=== PATIENT | male | born 1975 | race Caucasian/White ===

== ENCOUNTER 2016-09-05 | Emergency (ER) | payer MEDICAID | END 2016-09-05 14:45 | disposition left against medical advice (07) | DX: Z53.21 Procedure and treatment not carried out due to patient leaving prior to being seen by health care provider (principal) ==

== ENCOUNTER 2016-09-10 13:38 | Emergency (ER) | payer MEDICAID ==
[2016-09-10] MEDS ORDERED: LORazepam 2 MG/ML SYRINGE IM STA (14:57)
[2016-09-10] MEDS ORDERED: OLANZapine 10 MG VIAL IM STA (14:57)
[2016-09-10] MEDS ORDERED: WATER FOR INJECTION,STERILE 10 ML ONE (14:59)
[2016-09-10] MEDS ORDERED: LORazepam 2 MG/ML SYRINGE ONE (14:59)
[2016-09-10] MEDS ORDERED: OLANZapine 10 MG VIAL IM ONE (14:59)
[2016-09-10] MEDS ORDERED: diazePAM 5 MG TABLET PO STA (15:46)
[2016-09-10] MEDS ORDERED: diazePAM 5 MG TABLET PO ONE (15:48)
== END 2016-09-10 16:30 | disposition left against medical advice (07) ==
DX: F39 Unspecified mood [affective] disorder (principal); F15.10 Other stimulant abuse, uncomplicated; Z53.29 Procedure and treatment not carried out because of patient's decision for other reasons; Z87.891 Personal history of nicotine dependence
CPT/HCPCS: 36415; 80053; 80306; 80307; 80320; 80329; 81003; 83690; 84443; 85025; 96372; 99283; 99284; A9270; J2060

== ENCOUNTER 2016-09-17 23:32 | Outpatient (CLI) | payer MEDICAID | END 2016-09-17 23:33 | disposition critical access hospital (66) | DX: F91.9 Conduct disorder, unspecified (principal) | CPT/HCPCS: A0425; A0429 ==

== ENCOUNTER 2016-09-18 00:05 | Emergency (ER) | payer MEDICAID | END 2016-09-18 06:20 | disposition home or self-care (01) | DX: F15.14 Other stimulant abuse with stimulant-induced mood disorder (principal); F15.150 Other stimulant abuse with stimulant-induced psychotic disorder with delusions; F15.151 Other stimulant abuse with stimulant-induced psychotic disorder with hallucinations; Z87.891 Personal history of nicotine dependence ==

== ENCOUNTER 2018-08-22 06:22 | Outpatient (CLI) | payer MEDICAID | END 2018-08-22 06:23 | disposition EMS.NT | LOC: EMS 06:22 | PROVIDERS: ATTEND Surgery | DX: F41.9 Anxiety disorder, unspecified (principal) ==

== ENCOUNTER 2019-02-24 13:11 | Outpatient (CLI) | payer MEDICAID | END 2019-02-24 13:12 | disposition critical access hospital (66) | LOC: EMS 13:11 | PROVIDERS: ATTEND Surgery | DX: R07.81 Pleurodynia (principal); W50.0XXA Accidental hit or strike by another person, initial encounter; Y93.75 Activity, martial arts ==

== ENCOUNTER 2019-02-24 13:50 | Emergency (ER) | payer MEDICAID ==
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
[2019-02-24] MEDS ORDERED: oxyCODONE 5 MG TABLET PO STA ×2 (14:55→15:43)
[2019-02-24 16:46] VITALS: BP 134/78
== END 2019-02-24 15:00 | disposition home or self-care (01) ==
LOC: EDUNIT# → ED 13:50
DX: S20.212A Contusion of left front wall of thorax, initial encounter (principal); W50.0XXA Accidental hit or strike by another person, initial encounter; Y93.75 Activity, martial arts; Y92.89 Other specified places as the place of occurrence of the external cause; R07.1 Chest pain on breathing; J98.11 Atelectasis; Z87.891 Personal history of nicotine dependence
CPT/HCPCS: 71101; 99283; 99284; A9270

== ENCOUNTER 2020-01-10 18:54 | Emergency (ER) | payer MEDICAID ==
[2020-01-10 19:09] VITALS: BP 154/87
--- NOTE | 2020-01-10 20:33 | ED Physician Documentation ---
PD HPI HEENT - Stated complaint Stated Complaint: SORE THROAT - Chief complaint Chief Complaint: Heent - History obtained from History obtained from: Patient - History of Present Illness Timing - onset: How many days ago (4) Timing - duration: Days Timing - details: Gradual onset Location: Mouth Improves: Other (numbing meds) Worsens: Swalllowing, Other (eating) Associated symptoms: No: Fever, Congestion, Rhinorrhea, Facial swelling - Additional information Additional information: 44-year-old male presents to the emergency department with 3 to 4 days of acute mouth pain. Reports that he has developed some canker sores and a sore throat. He denies tonsillar exudate. Patient reports that the pain is worse after eating and makes it difficult to chew or swallow. He has no dysphonia. No fevers. Has had similar in the past. He has tried [id number] numbing agents which were for a brief time but do not work long enough. Review of Systems Constitutional: denies: Fever, Chills Ears: denies: Loss of hearing Nose: denies: Rhinorrhea / runny nose, Congestion Throat: reports: Oral lesions / sores, Sore throat Cardiac: denies: Chest pain / pressure, Palpitations Respiratory: denies: Dyspnea, Cough GI: denies: Abdominal Pain Skin: denies: Rash, Lesions PD PAST MEDICAL HISTORY - Past Medical History Past Medical History: Yes Endocrine/Autoimmune: None Psych: Other Musculoskeletal: Chronic back pain - Past Surgical History Past Surgical History: No - Present Medications Home Medications: Ambulatory Orders Medication Instructions Recorded Confirmed Oxycodone HCl/Acetaminophen 1 - 2 each PO Q6H PRN #20 tablet 02/24/19 [Percocet 5-325 mg Tablet] Lidocaine HCl [Lidocaine HCl 15 ml MM TID PRN #100 ml 01/10/20 Viscous] - Allergies Allergies/Adverse Reactions: Allergies Allergy/AdvReac Type Severity Reaction Status Date / Time No Known Drug Allergies Allergy Verified 02/24/19 14:03 - Social History Does the pt smoke?: No Smoking Status: Never smoker Does the pt drink ETOH?: Yes Does the pt have substance abuse?: Yes - Immunizations Immunizations are current?: Yes Immunizations: TDAP >10years/unknown - POLST Patient has POLST: No PD ED PE NORMAL - General General: Alert and oriented X 3, No acute distress, Well developed/nourished - HEENT HEENT: PERRL, EOMI, Other (Multiple shallow lesions on buccal mucosa bilaterally. Normal posterior oropharynx. No tonsillar exudate. Normal phonation) - Neck Neck: Supple, no meningeal sign, No adenopathy - Cardiac Cardiac: RRR, No murmur - Respiratory Respiratory: No respiratory distress, Clear bilaterally Results - Vitals Vitals: Vital Signs - 24 hr 01/10/20 19:06 Temperature 36.8 C Heart Rate 103 H Respiratory 16 Rate Blood Pressure 154/87 H O2 Saturation 98 Oxygen O2 Source Room air PD MEDICAL DECISION MAKING - ED course Complexity details: reviewed results, re-evaluated patient, d/w patient ED course: 44-year-old male here with 3 days of acute mouth pain in the setting of likely a viral pharyngitis as well as canker sores. - Will recommend warm salt water rinse. We will also prescribe a limited amount of lidocaine swish and swallow as well as NSAID meds - No findings consistent with peritonsillar or retropharyngeal abscess. Normal vital signs here. Emergent return precautions discussed Departure - Departure Disposition: 01 Home, Self Care Clinical Impression: Canker sores oral, Sore throat (viral) Condition: Stable Instructions: ED Pharyngitis Viral, ED Canker Sore Prescriptions: Lidocaine HCl [Lidocaine HCl Viscous] 15 ml MM TID PRN #100 ml PRN Reason: Pain Comments: I have written a prescription for some lidocaine that will help with your mouth pain. I also recommended taking ibuprofen 2-3 times a day for pain return to the emergency department if you cannot swallow normally, if you have high fevers or difficulty turning her neck.
== END 2020-01-10 20:46 | disposition home or self-care (01) ==
LOC: ED 18:54
DX: K12.0 Recurrent oral aphthae (principal); J02.8 Acute pharyngitis due to other specified organisms
CPT/HCPCS: 99282; 99284

== ENCOUNTER 2020-06-02 06:46 | Emergency (ER) | payer MEDICAID | END 2020-06-02 06:50 | disposition left against medical advice (07) | LOC: ED 06:46 | DX: Z53.21 Procedure and treatment not carried out due to patient leaving prior to being seen by health care provider (principal) ==

== ENCOUNTER 2020-06-02 09:13 | Emergency (ER) | payer MEDICAID ==
[2020-06-02 09:28] VITALS: BP 118/90
--- NOTE | 2020-06-02 09:48 | ED Physician Documentation ---
PD HPI MHE - Stated complaint Stated Complaint: MHE - Chief complaint Chief Complaint: MHE - History obtained from History obtained from: Patient - History of Present Illness Primary symptom: Psychosis. No: Homicidal ideation, Depression, Manic, Anxiety, Aggressive behavior, Off meds Timing - onset: How many years ago (several) Pain level max: 0 Pain level now: 0 Contributing factors: Substance abuse - ETOH Recently seen: Not recently seen - Additional information Additional information: 44-year-old male presents to the emergency department complaining of increasing auditory hallucinations recently. He states that sometimes they tell him to do things, other times he just hears the voices talking. He states he has not used methamphetamines in several days. He states he would like some medication to help him with his hallucinations. Had been on Abilify in the past, currently has not taken anything. He states he has been on Suboxone in the past as well. Denies any opiate use currently. Review of Systems Ten Systems: 10 systems reviewed and negative Constitutional: denies: Fever, Chills Ears: denies: Ear pain Nose: denies: Rhinorrhea / runny nose, Congestion Throat: denies: Sore throat Cardiac: denies: Chest pain / pressure Respiratory: denies: Cough GI: denies: Vomiting, Diarrhea Skin: denies: Rash Musculoskeletal: denies: Neck pain, Back pain Neurologic: denies: Headache PD PAST MEDICAL HISTORY - Past Medical History Past Medical History: Yes Respiratory: None Endocrine/Autoimmune: None Psych: Other Musculoskeletal: Chronic back pain - Past Surgical History Past Surgical History: No - Present Medications Home Medications: Ambulatory Orders Medication Instructions Recorded Confirmed Oxycodone HCl/Acetaminophen 1 - 2 each PO Q6H PRN #20 tablet 02/24/19 [Percocet 5-325 mg Tablet] Lidocaine HCl [Lidocaine HCl 15 ml MM TID PRN #100 ml 01/10/20 Viscous] - Allergies Allergies/Adverse Reactions: Allergies Allergy/AdvReac Type Severity Reaction Status Date / Time No Known Drug Allergies Allergy Verified 06/02/20 09:28 - Social History Does the pt smoke?: No Smoking Status: Never smoker Does the pt drink ETOH?: Yes Does the pt have substance abuse?: Yes - Immunizations Immunizations are current?: Yes Immunizations: TDAP >10years/unknown - POLST Patient has POLST: No PD ED PE NORMAL - Vitals Vital signs reviewed: Yes - General General: Alert and oriented X 3, No acute distress - HEENT HEENT: Moist mucous membranes - Neck Neck: Supple, no meningeal sign - Cardiac Cardiac: RRR - Respiratory Respiratory: No respiratory distress, Clear bilaterally - Abdomen Abdomen: Soft, Non tender, Non distended - Derm Derm: Warm and dry - Extremities Extremities: No edema - Neuro Neuro: Alert and oriented X 3 - Psych Psych: Other (rambling speech at times with tangential thoughts. no SI or HI.) Results - Vitals Vitals: Vital Signs - 24 hr 06/02/20 09:20 Temperature 36.4 C L Heart Rate 119 H Respiratory 17 Rate Blood Pressure 118/90 H O2 Saturation 100 Oxygen O2 Source Room air PD MEDICAL DECISION MAKING - ED course Complexity details: reviewed results, re-evaluated patient, considered differential, d/w patient ED course: Patient states that he does not want to stay in the emergency department any longer and eloped. The staff and I attempted to redirect him, but he maintained that he wanted to leave. He was alert, oriented to person, place, situation, time. There is no indication of suicidality or homicidality. Does not appear g ravely disabled at this time. No criteria for involuntary hold evident. Patient informed that he is welcome to return at any time. Patient left the emergency department under his own power. Refused to sign AMA. Departure - Departure Disposition: ED Elope Clinical Impression: Hallucinations Condition: Stable Discharge Date/Time: 06/02/20 10:47
== END 2020-06-02 10:47 | disposition left against medical advice (07) ==
LOC: ED 09:13
DX: F15.121 Other stimulant abuse with intoxication delirium (principal); R44.0 Auditory hallucinations; Z53.29 Procedure and treatment not carried out because of patient's decision for other reasons
CPT/HCPCS: 80053; 80307; 80320; 80329; 83690; 84443; 85025; 99281; 99283; 99284

== ENCOUNTER 2020-09-20 20:09 | Emergency (ER) | payer MEDICAID | END 2020-09-20 20:10 | disposition left against medical advice (07) | LOC: ED 20:09 | DX: Z53.21 Procedure and treatment not carried out due to patient leaving prior to being seen by health care provider (principal) ==

== ENCOUNTER 2020-09-22 12:36 | Emergency (ER) | payer MEDICAID ==
[2020-09-22 12:44] VITALS: BP 151/107
== END 2020-09-22 13:00 | disposition left against medical advice (07) ==
LOC: ED 12:36
DX: Z53.21 Procedure and treatment not carried out due to patient leaving prior to being seen by health care provider (principal)
CPT/HCPCS: 80053; 80307; 80320; 80329; 83690; 84443; 85025

== ENCOUNTER 2020-11-26 15:44 | Emergency (ER) | payer MEDICAID ==
--- NOTE | 2020-11-26 16:17 | ED Physician Documentation ---
PD HPI MHE - Stated complaint Stated Complaint: MHE - Chief complaint Chief Complaint: MHE - History obtained from History obtained from: Patient, Police - Additional information Additional information: 45-year-old gentleman with history of methamphetamine abuse presents accompanied by law enforcement for involuntary mental health evaluation. Reportedly has been acting bizarrely for several days. Patient is a rambling and fairly useless historian. Review of Systems Unable to obtain: Other (rambling) PD PAST MEDICAL HISTORY - Past Medical History Respiratory: None Endocrine/Autoimmune: None Psych: Other Musculoskeletal: Chronic back pain - Past Surgical History Past Surgical History: No - Allergies Allergies/Adverse Reactions: Allergies Allergy/AdvReac Type Severity Reaction Status Date / Time No Known Drug Allergies Allergy Verified 11/26/20 15:51 - Social History Does the pt smoke?: No Smoking Status: Never smoker Does the pt drink ETOH?: Yes Does the pt have substance abuse?: Yes - Immunizations Immunizations are current?: Yes Immunizations: TDAP >10years/unknown - POLST Patient has POLST: No PD ED PE NORMAL - Vitals Vital signs reviewed: Yes - General General: No acute distress, Well developed/nourished - HEENT HEENT: PERRL, EOMI - Neck Neck: Supple, no meningeal sign, No bony TTP - Cardiac Cardiac: RRR, No murmur - Respiratory Respiratory: No respiratory distress, Clear bilaterally - Abdomen Abdomen: Soft, Non tender - Back Back: No CVA TTP, No spinal TTP - Derm Derm: Normal color, Warm and dry - Extremities Extremities: No edema, No calf tenderness / cord - Psych Psych: Other (Talking about wires and he is delusional.) Results - Vitals Vitals: Vital Signs - 24 hr 11/26/20 11/27/20 15:51 08:32 Temperature 36.4 C L 36.3 C L Heart Rate 86 69 Respiratory 18 16 Rate Blood Pressure 153/88 H 169/102 H O2 Saturation 96 96 Oxygen O2 Source Room air - Labs Labs: Laboratory Tests 11/26/20 11/26/20 11/26/20 18:13 22:44 22:46 WBC 5.9 RBC 4.93 Hgb 15.1 Hct 46.1 MCV 93.5 MCH 30.6 MCHC 32.8 RDW 13.7 Plt Count 317 MPV 9.2 Neut # (Auto) 3.5 Lymph # (Auto) 1.6 [place] # (Auto) 0.7 Eos # (Auto) 0.2 Baso # (Auto) 0.0 Absolute Nucleated RBC 0.00 Nucleated RBC % 0.0 Sodium Potassium Chloride Carbon Dioxide Anion Gap BUN Creatinine Estimated GFR (MDRD) Glucose Calcium Total Bilirubin AST ALT Alkaline Phosphatase Total Protein Albumin Globulin Albumin/Globulin Ratio Lipase TSH Urine Color YELLOW Urine Clarity CLEAR Urine pH 6.5 Ur Specific [place] 1.025 Urine Protein NEGATIVE Urine Glucose (UA) NEGATIVE Urine Ketones 15 H Urine Occult Blood NEGATIVE Urine Nitrite NEGATIVE Urine Bilirubin NEGATIVE Urine Urobilinogen 1 (NORMAL) Ur Leukocyte Esterase NEGATIVE Ur Microscopic Review NOT INDICATED Urine Culture Comments NOT INDICATED Nasal Adenovirus (PCR) NOT DETECTED Nasal B. parapertussis DNA (PCR) NOT DETECTED Nasal Coronavir 229E PCR NOT DETECTED Nasal Coronavir HKU1 PCR NOT DETECTED Nasal Coronavir NL63 PCR NOT DETECTED Nasal Coronavir OC43 PCR NOT DETECTED Nasal Enterovir/Rhinovir PCR NOT DETECTED Nasal Influenza B PCR NOT DETECTED Nasal Influenza A PCR NOT DETECTED Nasal Parainfluen 1 PCR NOT DETECTED Nasal Parainfluen 2 PCR NOT DETECTED Nasal Parainfluen 3 PCR NOT DETECTED Nasal Parainfluen 4 PCR NOT DETECTED Nasal RSV (PCR) NOT DETECTED Nasal B.pertussis DNA PCR NOT DETECTED Nasal C.pneumoniae (PCR) NOT DETECTED [place] Human Metapneumo PCR NOT DETECTED Nasal M.pneumoniae (PCR) NOT DETECTED Nasal SARS-CoV-2 (PCR) NOT DETECTED Salicylates Urine Opiates Screen POSITIVE H Ur Oxycodone Screen NEGATIVE Urine Methadone Screen NEGATIVE Ur Propoxyphene Screen NEGATIVE Acetaminophen Ur Barbiturates Screen NEGATIVE Ur Tricyclics Screen NEGATIVE Ur Phencyclidine Scrn NEGATIVE Ur Amphetamine Screen POSITIVE H U Methamphetamines Scrn POSITIVE H U Benzodiazepines Scrn NEGATIVE Urine Cocaine Screen NEGATIVE U Cannabinoids Screen NEGATIVE Ethyl Alcohol 11/26/20 11/26/20 22:46 22:46 WBC RBC Hgb Hct MCV MCH MCHC RDW Plt Count MPV Neut # (Auto) Lymph # (Auto) [place] # (Auto) Eos # (Auto) Baso # (Auto) Absolute Nucleated RBC Nucleated RBC % Sodium 134 L Potassium 4.0 Chloride 99 L Carbon Dioxide 29 Anion Gap 6.0 BUN 21 H Creatinine 1.0 Estimated GFR (MDRD) 81 L Glucose 101 H Calcium 9.0 Total Bilirubin 1.0 AST 33 ALT 35 Alkaline Phosphatase 100 Total Protein 7.8 Albumin 4.5 Globulin 3.3 Albumin/Globulin Ratio 1.4 Lipase 22 TSH 2.42 Urine Color Urine Clarity Urine pH Ur Specific [place] Urine Protein Urine Glucose (UA) Urine Ketones Urine Occult Blood Urine Nitrite Urine Bilirubin Urine Urobilinogen Ur Leukocyte Esterase Ur Microscopic Review Urine Culture Comments Nasal Adenovirus (PCR) Nasal B. parapertussis DNA (PCR) Nasal Coronavir 229E PCR Nasal Coronavir HKU1 PCR Nasal Coronavir NL63 PCR Nasal Coronavir OC43 PCR Nasal Enterovir/Rhinovir PCR Nasal Influenza B PCR Nasal Influenza A PCR Nasal Parainfluen 1 PCR Nasal Parainfluen 2 PCR Nasal Parainfluen 3 PCR Nasal Parainfluen 4 PCR Nasal RSV (PCR) Nasal B.pertussis DNA PCR Nasal C.pneumoniae (PCR) [place] Human Metapneumo PCR Nasal M.pneumoniae (PCR) Nasal SARS-CoV-2 (PCR) Salicylates < 6.0 Urine Opiates Screen Ur Oxycodone Screen Urine Methadone Screen Ur Propoxyphene Screen Acetaminophen < 10 L Ur Barbiturates Screen Ur Tricyclics Screen Ur Phencyclidine Scrn Ur Amphetamine Screen U Methamphetamines Scrn U Benzodiazepines Scrn Urine Cocaine Screen U Cannabinoids Screen Ethyl Alcohol < 5.0 PD MEDICAL DECISION MAKING - ED course ED course: 45yo male with agitation psychosis. Refused labs initially. LINA Tierney came to ED to eval patient. Departure - Departure Disposition: 65 Psych Hosp/Unit DC/Xfer Clinical Impression: Affective psychosis, Methamphetamine abuse Condition: Good Record reviewed to determine appropriate education?: Yes Instructions: ED Drug Abuse General, ED Psychosis Face to Face for Restraints - Immediate Situation Face to Face Evaluation Date: 11/26/20 Face to Face Evaluation Time: 16:25 Restraint Situation: Chemical Patient's Reactions to the Intervention: Fighting restraints, Asking for information - Behavioral Condition Attitude: Indifferent Behavior: Uncooperative, Agitated Orientation: Person, Place Mood: Labile - Evaluation Review of Systems: Unable, he is delusional Pertinent History/Illicit Drugs/Medications/Results: Probable meth use - Plan Need to Continue or Terminate Violent or Chemical Restraint: when not fighting care
[2020-11-26] MEDS ORDERED: LORazepam 2 MG/ML VIAL IM STA (16:19)
[2020-11-26] MEDS ORDERED: OLANZapine 10 MG VIAL IM STA (16:19)
[2020-11-26 19:17] LABS: B. PARAPERTUSSIS- RESP PCR PAN NOT DETECTED; B. PERTUSSIS- RESP PCR PANEL NOT DETECTED; C. PNEUMONIAE- RESP PCR PANEL NOT DETECTED; CORONAVIRUS 229E-RESP PCR NOT DETECTED; CORONAVIRUS HKU1-RESP PCR NOT DETECTED; CORONAVIRUS NL63-RESP PCR NOT DETECTED; CORONAVIRUS OC43-RESP PCR NOT DETECTED; HUMAN METAPNEUMOVIRUS NOT DETECTED; INFLUENZA A- RESP PCR PANEL NOT DETECTED; INFLUENZA B - RESP PCR PANEL NOT DETECTED; M. PNEUMONIAE- RESP PCR PANEL NOT DETECTED; PARAINFLUENZA VIRUS 1 NOT DETECTED; PARAINFLUENZA VIRUS 2 NOT DETECTED; PARAINFLUENZA VIRUS 3 NOT DETECTED; PARAINFLUENZA VIRUS 4 NOT DETECTED; RHINOVIRUS/ENTEROVIRUS NOT DETECTED; RSV- RESP PCR PANEL NOT DETECTED; SARS-CoV-2 -RESP PCR PANEL NOT DETECTED
[2020-11-26 22:49] LABS: MUDS CUTOFF CONCENTRATIONS CUTOFF CONC BELOW:
[2020-11-26 22:50] LABS: BASOPHILS % (AUTO) 0.7 %; EOSINOPHILS # (AUTO) 0.2 10^3/uL (0.0-0.7); EOSINOPHILS % (AUTO) 2.9 %; HCT - HEMATOCRIT 46.1 % (42.0-52.0); HGB - HEMOGLOBIN 15.1 g/dL (14.0-18.0); LYMPHOCYTES # (AUTO) 1.6 10^3/uL (1.5-3.5); LYMPHOCYTES % (AUTO) 26.2 %; MEAN CORPUSCULAR HEMOGLOBIN 30.6 pg (27.0-31.0); MEAN CORPUSCULAR HGB CONC 32.8 g/dL (32.0-36.0); MEAN CORPUSCULAR VOLUME 93.5 fL (80.0-94.0); MEAN PLATELET VOLUME 9.2 fL (7.4-11.4); MONOCYTES # (AUTO) 0.7 10^3/uL (0.0-1.0); MONOCYTES % (AUTO) 11.3 %; NEUTROPHILS # (AUTO) 3.5 10^3/uL (1.5-6.6); NEUTROPHILS % (AUTO) 58.6 %; PLT - PLATELET COUNT 317 10^3/uL (130-450); RED BLOOD COUNT 4.93 10^6/uL (4.70-6.10); RED CELL DISTRIBUTION WIDTH 13.7 % (12.0-15.0); WHITE BLOOD COUNT 5.9 x10^3/uL (4.8-10.8)
[2020-11-26 22:50] LABS: BILIRUBIN,URINE NEGATIVE (NEGATIVE); GLUCOSE, URINE (UA) NEGATIVE (NEGATIVE); KETONES,URINE (UA) 15 mg/dL (NEGATIVE); LEUKOCYTE ESTERASE, URINE NEGATIVE (NEGATIVE); NITRITE,URINE NEGATIVE (NEGATIVE); OCCULT BLOOD,URINE NEGATIVE (NEGATIVE); PH,URINE 6.5 PH (5.0-7.5); PROTEIN,URINE NEGATIVE (NEGATIVE); UROBILINOGEN,URINE 1 (NORMAL) E.U./dL (NORMAL)
[2020-11-26 22:52] LABS: CLARITY,URINE CLEAR (CLEAR)
[2020-11-26 23:00] LABS: COCAINE SCREEN URINE NEGATIVE (NEGATIVE); THC CANNABINOID SCREEN, URINE NEGATIVE (NEGATIVE)
[2020-11-26 23:01] LABS: AMPHETAMINE SCREEN,URINE POSITIVE (NEGATIVE); BARBITURATE SCREEN,UR NEGATIVE (NEGATIVE); BENZODIAZEPINES SCREEN, URINE NEGATIVE (NEGATIVE); METHADONE SCREEN, URINE NEGATIVE (NEGATIVE); METHAMPHETAMINES SCREEN, URINE POSITIVE (NEGATIVE); OPIATE SCREEN, URINE POSITIVE (NEGATIVE); OXYCODONE SCREEN, URINE NEGATIVE (NEGATIVE); PROPOXYPHENE SCREEN, URINE NEGATIVE (NEGATIVE); TRICYCLIC ANTIDEPRESSANT,URINE NEGATIVE (NEGATIVE)
[2020-11-26 23:06] LABS: ACETAMINOPHEN < 10 ug/mL (10-30); ALBUMIN 4.5 g/dL (3.2-5.5); ALBUMIN/GLOBULIN RATIO 1.4 (1.0-2.2); ALKALINE PHOSPHATASE 100 IU/L (42-121); ALT ALANINE AMINOTRANSFERASE 35 IU/L (10-60); AST ASPARTATE AMINOTRANSFERASE 33 IU/L (10-42); BUN - BLOOD UREA NITROGEN 21 mg/dL (6-20); CARBON DIOXIDE - CO2 29 mmol/L (21-32); CHLORIDE 99 mmol/L (101-111); ETOH - ETHANOL < 5.0 mg/dL; GFR - MDRD 81 (>89); GLUCOSE 101 mg/dL (70-100); LIPASE 22 U/L (22-51); SALICYLATE < 6.0 mg/dL; SODIUM 134 mmol/L (135-145); TOTAL PROTEIN 7.8 g/dL (6.7-8.2)
[2020-11-27 08:33] VITALS: BP 169/102
[2020-11-27] MEDS ORDERED: diazePAM INJ 5 MG/ML SYRINGE IM STA (11:05)
== END 2020-11-27 11:20 ==
LOC: EDUNIT# → ED 15:44
DX: F39 Unspecified mood [affective] disorder (principal); R45.1 Restlessness and agitation; F15.10 Other stimulant abuse, uncomplicated; Z78.1 Physical restraint status; Z20.822 Contact with and (suspected) exposure to COVID-19
CPT/HCPCS: 0202U; 36415; 80053; 80306; 80307; 80320; 80329; 81003; 83690; 84443; 85025; 96372; 99281; 99285; J2060; 81001; 87086

== ENCOUNTER 2020-12-23 11:24 | Outpatient (CLI) | payer MEDICAID | END 2020-12-23 11:25 | disposition critical access hospital (66) | LOC: EMS 11:24 | DX: F41.9 Anxiety disorder, unspecified (principal); R45.1 Restlessness and agitation; R45.89 Other symptoms and signs involving emotional state | CPT/HCPCS: A0425; A0429; A0999 ==

== ENCOUNTER 2020-12-23 12:02 | Emergency (ER) | payer MEDICAID ==
[2020-12-23] MEDS ORDERED: MIDAZOLAM 10 MG/5 ML UDC PO STA (12:11)
[2020-12-23] MEDS ORDERED: MIDAZOLAM 2 MG/2 ML VIAL IM STA (12:35)
[2020-12-23] MEDS ORDERED: OLANZapine 10 MG VIAL IM STA (12:39)
--- NOTE | 2020-12-23 12:40 | ED Physician Documentation ---
History of Present Illness - Stated complaint Stated Complaint: MHE - Chief complaint Chief Complaint: MHE - History obtained from History obtained from: Patient, EMS - Additonal information Additional information: 45-year-old man with history of methamphetamine abuse, just discharged from detox in [place] 2 days ago, comes to the emergency department after mother called 911 when he was acting agitated and punching a wall at home per EMS report. Patient denies methamphetamine use but appears visibly agitated and hyper alert. Denies SI/HI/AVH. Some flight of ideas. Denies other drug use. Limited historian. Patient states he is worried about his mother then trails off. Review of Systems Unable to obtain: Uncooperative PD PAST MEDICAL HISTORY - Past Medical History Respiratory: None Endocrine/Autoimmune: None Psych: Other Musculoskeletal: Chronic back pain - Past Surgical History Past Surgical History: No - Present Medications Home Medications: Ambulatory Orders Medication Instructions Recorded Confirmed No Known Home Medications 12/23/20 12/23/20 - Allergies Allergies/Adverse Reactions: Allergies Allergy/AdvReac Type Severity Reaction Status Date / Time No Known Drug Allergies Allergy Verified 12/23/20 12:08 - Social History Does the pt smoke?: No Smoking Status: Never smoker Does the pt drink ETOH?: Yes Does the pt have substance abuse?: Yes - Immunizations Immunizations are current?: Yes Immunizations: TDAP >10years/unknown - POLST Patient has POLST: No PD ED PE NORMAL - Vitals Vital signs reviewed: Yes - General General: Alert and oriented X 3, Well developed/nourished, Other (Visibly agitated sitting up in bed) - HEENT HEENT: Atraumatic, PERRL, EOMI, Other (Pupils 3 to 4 mm) - Neck Neck: Supple, no meningeal sign - Cardiac Cardiac: RRR (Borderline tachycardic rate, regular rhythm) - Respiratory Respiratory: No respiratory distress, Clear bilaterally - Abdomen Abdomen: Non tender, Non distended - Derm Derm: Normal color, Warm and dry - Extremities Extremities: No deformity - Neuro Neuro: Alert and oriented X 3 - Psych Psych: Other (Hyperalert affect. Mood is "worried") Results - Vitals Vitals: Vital Signs - 24 hr 12/23/20 12/23/20 12/23/20 12:09 12:22 14:40 Temperature 37.2 C Heart Rate 109 H 95 110 H Respiratory 26 H 24 20 Rate Blood Pressure 109/74 92/67 O2 Saturation 100 100 12/23/20 14:56 Temperature Heart Rate 116 H Respiratory 12 Rate Blood Pressure 108/88 H O2 Saturation 99 Oxygen O2 Source Room air - Labs Labs: Laboratory Tests 12/23/20 12/23/20 12/23/20 12:58 12:58 12:58 WBC 14.0 H RBC 5.09 Hgb 15.5 Hct 46.6 MCV 91.6 MCH 30.5 MCHC 33.3 RDW 13.5 Plt Count 276 MPV 10.2 Neut # (Auto) 12.4 H Lymph # (Auto) 0.4 L Cavalier # (Auto) 1.2 H Eos # (Auto) 0.0 Baso # (Auto) 0.0 Absolute Nucleated RBC 0.00 Nucleated RBC % 0.0 VBG pH VBG pCO2 VBG pO2 VBG HCO3 VBG Total CO2 VBG O2 Saturation VBG Base Excess Sodium 153 H Potassium 8.4 H* Chloride 108 Carbon Dioxide 12 L* Anion Gap 33.0 H BUN 188 H* Creatinine 13.2 H* Estimated GFR (MDRD) 4 L Glucose 273 H Calcium 7.7 L Total Bilirubin 1.8 H AST 599 H ALT 201 H Alkaline Phosphatase 69 Total Creatine Kinase Total Protein 7.9 Albumin 4.7 Globulin 3.2 Albumin/Globulin Ratio 1.5 Lipase 130 H TSH 2.81 Salicylates < 6.0 Acetaminophen < 10 L Ethyl Alcohol < 5.0 12/23/20 12/23/20 13:58 14:31 WBC RBC Hgb Hct MCV MCH MCHC RDW Plt Count MPV Neut # (Auto) Lymph # (Auto) Cavalier # (Auto) Eos # (Auto) Baso # (Auto) Absolute Nucleated RBC Nucleated RBC % VBG pH 7.235 L VBG pCO2 35.3 L VBG pO2 47.7 H VBG HCO3 14.6 L VBG Total CO2 15.7 L VBG O2 Saturation 77.8 VBG Base Excess -11.8 L Sodium Potassium Chloride Carbon Dioxide Anion Gap BUN Creatinine Estimated GFR (MDRD) Glucose Calcium Total Bilirubin AST ALT Alkaline Phosphatase Total Creatine Kinase 13013 H* Total Protein Albumin Globulin Albumin/Globulin Ratio Lipase TSH Salicylates Acetaminophen Ethyl Alcohol PD MEDICAL DECISION MAKING - ED course ED course: Upon initial patient evaluation I offered him oral Versed and he accepted. He sat at the bedside vision that we agitated and would not drink the Versed despite staff midwife/apprenticeship director coaxing him for several minutes. Patient is visibly agitated and we had a report from EMS that he was violent in the home and his mother felt threatened. Offered to administer voluntary intramuscular injection of medication to help calm him and patient refused. Also refusing labwork. Will initiate chemical restraints at this time in order to evaluate medically. [id number] encounter at 12:38 PM. Note that per RN judgement, chemical restraints were not needed. modified environment and patient has not required sedation. 2pm - d/w Dr. Garcia, nephro at [facility] who will see patient. plan to transfer for HD in setting of severe rhabdo. d/w hospitalist Dr. Jain, accepting Departure - Departure Disposition: 02 Transfer Acute Care Hosp Clinical Impression: Rhabdomyolysis, Hyperkalemia, Methamphetamine abuse
[2020-12-23 13:07] LABS: BASOPHILS % (AUTO) 0.1 %; HCT - HEMATOCRIT 46.6 % (42.0-52.0); HGB - HEMOGLOBIN 15.5 g/dL (14.0-18.0); LYMPHOCYTES # (AUTO) 0.4 10^3/uL (1.5-3.5); LYMPHOCYTES % (AUTO) 2.8 %; MEAN CORPUSCULAR HEMOGLOBIN 30.5 pg (27.0-31.0); MEAN CORPUSCULAR HGB CONC 33.3 g/dL (32.0-36.0); MEAN CORPUSCULAR VOLUME 91.6 fL (80.0-94.0); MEAN PLATELET VOLUME 10.2 fL (7.4-11.4); MONOCYTES # (AUTO) 1.2 10^3/uL (0.0-1.0); MONOCYTES % (AUTO) 8.4 %; NEUTROPHILS # (AUTO) 12.4 10^3/uL (1.5-6.6); NEUTROPHILS % (AUTO) 88.2 %; PLT - PLATELET COUNT 276 10^3/uL (130-450); RED BLOOD COUNT 5.09 10^6/uL (4.70-6.10); RED CELL DISTRIBUTION WIDTH 13.5 % (12.0-15.0)
[2020-12-23 13:32] LABS: ACETAMINOPHEN < 10 ug/mL (10-30); ALBUMIN 4.7 g/dL (3.2-5.5); ALBUMIN/GLOBULIN RATIO 1.5 (1.0-2.2); ALKALINE PHOSPHATASE 69 IU/L (42-121); ALT ALANINE AMINOTRANSFERASE 201 IU/L (10-60); AST ASPARTATE AMINOTRANSFERASE 599 IU/L (10-42); BILIRUBIN,TOTAL 1.8 mg/dL (0.2-1.0); CALCIUM 7.7 mg/dL (8.5-10.3); CHLORIDE 108 mmol/L (101-111); ETOH - ETHANOL < 5.0 mg/dL; GFR - MDRD 4 (>89); GLUCOSE 273 mg/dL (70-100); LIPASE 130 U/L (22-51); SALICYLATE < 6.0 mg/dL; SODIUM 153 mmol/L (135-145); TOTAL PROTEIN 7.9 g/dL (6.7-8.2)
[2020-12-23 13:45] LABS: BUN - BLOOD UREA NITROGEN 188 mg/dL (6-20); CARBON DIOXIDE - CO2 12 mmol/L (21-32); POTASSIUM 8.4 mmol/L (3.5-5.0)
[2020-12-23 13:46] LABS: CREATININE 13.2 mg/dL (0.6-1.2)
[2020-12-23] MEDS ORDERED: LACTATED RINGERS 1,000 ML IV STA ×2 (14:02→14:05)
[2020-12-23] MEDS ORDERED: INSULIN REGULAR HUMAN 100 UNIT/1 ML 10 ML MDV IVP STA (14:19)
[2020-12-23] MEDS ORDERED: CALCIUM GLUCONATE 1,000 MG in SODIUM CHLORIDE 0.9% 50 ML IV STA (14:19)
[2020-12-23] MEDS ORDERED: ALBUTEROL NEB 2.5 MG/3 ML INH STA (14:20)
[2020-12-23] MEDS ORDERED: DEXTROSE 50% ABBOJECT 25 GM/50 ML SYRINGE IVP STA (14:20)
[2020-12-23] MEDS ORDERED: SODIUM BICARBONATE ABBOJECT 50 MEQ/50 ML SYRINGE IVP STA (14:21)
[2020-12-23 14:52] LABS: VBG PH 7.235 (7.31-7.41)
[2020-12-23 14:53] LABS: VBG BASE EXCESS -11.8 mmol/L (-2 - +2); VBG HCO3 14.6 mmol/L (23-28); VBG OXYGEN SATURATION 77.8 % (60-80); VBG PCO2 35.3 mmHg (41-51); VBG PO2 47.7 mmHg (25-47); VBG TOTAL CO2 15.7 mmol/L (24-29)
[2020-12-23 14:56] VITALS: BP 108/88
[2020-12-23 15:39] LABS: B. PARAPERTUSSIS- RESP PCR PAN NOT DETECTED; B. PERTUSSIS- RESP PCR PANEL NOT DETECTED; CORONAVIRUS 229E-RESP PCR NOT DETECTED; CORONAVIRUS HKU1-RESP PCR NOT DETECTED; CORONAVIRUS NL63-RESP PCR NOT DETECTED; CORONAVIRUS OC43-RESP PCR NOT DETECTED; HUMAN METAPNEUMOVIRUS NOT DETECTED; INFLUENZA A- RESP PCR PANEL NOT DETECTED; INFLUENZA B - RESP PCR PANEL NOT DETECTED; PARAINFLUENZA VIRUS 1 NOT DETECTED; PARAINFLUENZA VIRUS 2 NOT DETECTED; PARAINFLUENZA VIRUS 3 NOT DETECTED; PARAINFLUENZA VIRUS 4 NOT DETECTED; RHINOVIRUS/ENTEROVIRUS NOT DETECTED; RSV- RESP PCR PANEL NOT DETECTED; SARS-CoV-2 -RESP PCR PANEL NOT DETECTED
[2020-12-23 15:40] LABS: C. PNEUMONIAE- RESP PCR PANEL NOT DETECTED; M. PNEUMONIAE- RESP PCR PANEL NOT DETECTED
== END 2020-12-23 16:40 | disposition short-term general hospital (02) ==
LOC: EDUNIT# → ED 12:02
DX: M62.82 Rhabdomyolysis (principal); E87.5 Hyperkalemia; F15.10 Other stimulant abuse, uncomplicated; Z20.822 Contact with and (suspected) exposure to COVID-19
CPT/HCPCS: 0202U; 36415; 80053; 80307; 80320; 80329; 82550; 82803; 83690; 84443; 85025; 93005; 94640; 96365; 96375; 99281; 99285; J1815; J7040; J7120

== ENCOUNTER 2020-12-23 16:39 | Outpatient (CLI) | payer MEDICAID | END 2020-12-23 16:40 | disposition short-term general hospital (02) | LOC: EMS 16:39 | PROVIDERS: ATTEND Emergency Medicine | DX: M62.82 Rhabdomyolysis (principal); E87.5 Hyperkalemia; F15.10 Other stimulant abuse, uncomplicated | CPT/HCPCS: A0425; A0426 ==

== ENCOUNTER 2021-01-05 14:02 | Emergency (ER) | payer MEDICAID ==
[2021-01-05 14:58] LABS: BASOPHILS % (AUTO) 0.6 %; EOSINOPHILS # (AUTO) 0.1 10^3/uL (0.0-0.7); EOSINOPHILS % (AUTO) 1.3 %; HCT - HEMATOCRIT 35.7 % (42.0-52.0); HGB - HEMOGLOBIN 11.7 g/dL (14.0-18.0); LYMPHOCYTES # (AUTO) 1.8 10^3/uL (1.5-3.5); LYMPHOCYTES % (AUTO) 26.4 %; MEAN CORPUSCULAR HEMOGLOBIN 30.2 pg (27.0-31.0); MEAN CORPUSCULAR HGB CONC 32.8 g/dL (32.0-36.0); MEAN CORPUSCULAR VOLUME 92.2 fL (80.0-94.0); MEAN PLATELET VOLUME 8.5 fL (7.4-11.4); MONOCYTES # (AUTO) 0.7 10^3/uL (0.0-1.0); MONOCYTES % (AUTO) 9.6 %; NEUTROPHILS # (AUTO) 4.3 10^3/uL (1.5-6.6); NEUTROPHILS % (AUTO) 61.7 %; PLT - PLATELET COUNT 377 10^3/uL (130-450); RED BLOOD COUNT 3.87 10^6/uL (4.70-6.10); RED CELL DISTRIBUTION WIDTH 12.9 % (12.0-15.0); WHITE BLOOD COUNT 6.9 x10^3/uL (4.8-10.8)
[2021-01-05 15:11] LABS: ALBUMIN/GLOBULIN RATIO 0.9 (1.0-2.2); BILIRUBIN,TOTAL 0.7 mg/dL (0.2-1.0); CALCIUM 8.6 mg/dL (8.5-10.3); CREATININE 0.8 mg/dL (0.6-1.2); POTASSIUM 3.9 mmol/L (3.5-5.0); TOTAL PROTEIN 6.4 g/dL (6.7-8.2)
[2021-01-05 16:25] LABS: BILIRUBIN,URINE NEGATIVE (NEGATIVE); GLUCOSE, URINE (UA) NEGATIVE (NEGATIVE); KETONES,URINE (UA) NEGATIVE (NEGATIVE); LEUKOCYTE ESTERASE, URINE NEGATIVE (NEGATIVE); NITRITE,URINE NEGATIVE (NEGATIVE); OCCULT BLOOD,URINE NEGATIVE (NEGATIVE); PH,URINE 6.5 PH (5.0-7.5); PROTEIN,URINE NEGATIVE (NEGATIVE); UROBILINOGEN,URINE 0.2 (NORMAL) E.U./dL (NORMAL)
[2021-01-05 16:27] LABS: CLARITY,URINE CLEAR (CLEAR)
[2021-01-05] MEDS ORDERED: SODIUM CHLORIDE 0.9% 1,000 ML IV STA (16:31)
[2021-01-05] MEDS ORDERED: IOVERSOL 320 100 ML VIAL IVP ONE ×2 (16:36→16:52)
--- NOTE | 2021-01-05 16:37 | ED Physician Documentation ---
History of Present Illness - Stated complaint Stated Complaint: LOW ABD PX - Chief complaint Chief Complaint: Abd Pain - Additonal information Additional information: 45-year-old male presents the emergency department for evaluation of right flank and right groin pain. The pain is gotten persistently worse limiting his ability to move. He states the symptoms began when he was in the ICU at [facility] for acute kidney injury secondary to alcohol and methamphetamine abuse. He never required dialysis. Hydration improved his renal function. Does admit to drinking after discharge 2 days ago from [facility]. He denies fevers or dysuria. No hematuria. He is concerned that he could have a kidney stone. On presentation in the room the patient is eating red carola licorice and drinking a 7-Up. Review of Systems Constitutional: denies: Fever, Chills Eyes: reports: Reviewed and negative Ears: reports: Reviewed and negative Throat: reports: Dental pain / toothache Cardiac: reports: Reviewed and negative Respiratory: reports: Reviewed and negative GI: reports: Abdominal Pain (right groin). denies: Nausea : denies: Dysuria, Frequency, Hesitancy Skin: denies: Rash, Lesions PD PAST MEDICAL HISTORY - Past Medical History Past Medical History: Yes Respiratory: None Endocrine/Autoimmune: None Psych: Other Musculoskeletal: Chronic back pain - Past Surgical History Past Surgical History: No - Present Medications Home Medications: Ambulatory Orders Medication Instructions Recorded Confirmed No Known Home Medications 12/23/20 12/23/20 - Allergies Allergies/Adverse Reactions: Allergies Allergy/AdvReac Type Severity Reaction Status Date / Time No Known Drug Allergies Allergy Verified 01/05/21 14:15 - Social History Does the pt smoke?: No Smoking Status: Never smoker Does the pt drink ETOH?: Yes Does the pt have substance abuse?: Yes - Immunizations Immunizations are current?: Yes Immunizations: TDAP >10years/unknown - POLST Patient has POLST: No PD ED PE EXPANDED - General General: Alert, No acute distress - Cardiac Cardiac: Regular Rate, Radial strong equal, Pedal strong equal, Cap refill < 2 sec - Respiratory Respiratory: Clear to ausultation tiffany. No: Distress, Labored - Abdomen Abdomen: Normal Bowel sounds. No: Tender to palpation, Rebound, Guarding - Male Male : Normal Exam, Circumcised, Other (Tenderness elicited on the mons pubis but there was no findings consistent with an inguinal hernia on exam. Mild right flank tenderness noted.) - Back Back: Normal exam - Derm Derm: Normal color, Warm and dry - Extremities Extremities: Normal. No: Deformity, Tenderness Results - Vitals Vitals: Vital Signs - 24 hr 01/05/21 01/05/21 01/05/21 14:10 16:20 18:00 Temperature 36.9 C 36.6 C 36.8 C Heart Rate 111 H 100 100 Respiratory 16 16 16 Rate Blood Pressure 119/73 137/79 H 119/85 H O2 Saturation 98 98 98 Oxygen O2 Source Room air - Labs Labs: Laboratory Tests 01/05/21 01/05/21 01/05/21 14:53 14:53 16:20 WBC 6.9 RBC 3.87 L Hgb 11.7 L Hct 35.7 L MCV 92.2 MCH 30.2 MCHC 32.8 RDW 12.9 Plt Count 377 MPV 8.5 Neut # (Auto) 4.3 Lymph # (Auto) 1.8 Terry # (Auto) 0.7 Eos # (Auto) 0.1 Baso # (Auto) 0.0 Absolute Nucleated RBC 0.00 Nucleated RBC % 0.0 Sodium 136 Potassium 3.9 Chloride 102 Carbon Dioxide 27 Anion Gap 7.0 BUN 17 Creatinine 0.8 Estimated GFR (MDRD) 105 Glucose 123 H Lactic Acid Calcium 8.6 Total Bilirubin 0.7 AST 23 ALT 29 Alkaline Phosphatase 101 Total Protein 6.4 L Albumin 3.0 L Globulin 3.4 Albumin/Globulin Ratio 0.9 L Lipase 75 H Urine Color YELLOW Urine Clarity CLEAR Urine pH 6.5 Ur Specific [place] <=1.005 Urine Protein NEGATIVE Urine Glucose (UA) NEGATIVE Urine Ketones NEGATIVE Urine Occult Blood NEGATIVE Urine Nitrite NEGATIVE Urine Bilirubin NEGATIVE Urine Urobilinogen 0.2 (NORMAL) Ur Leukocyte Esterase NEGATIVE Ur Microscopic Review NOT INDICATED Urine Culture Comments NOT INDICATED 01/05/21 17:58 WBC RBC Hgb Hct MCV MCH MCHC RDW Plt Count MPV Neut # (Auto) Lymph # (Auto) Terry # (Auto) Eos # (Auto) Baso # (Auto) Absolute Nucleated RBC Nucleated RBC % Sodium Potassium Chloride Carbon Dioxide Anion Gap BUN Creatinine Estimated GFR (MDRD) Glucose Lactic Acid 1.5 Calcium Total Bilirubin AST ALT Alkaline Phosphatase Total Protein Albumin Globulin Albumin/Globulin Ratio Lipase Urine Color Urine Clarity Urine pH Ur Specific [place] Urine Protein Urine Glucose (UA) Urine Ketones Urine Occult Blood Urine Nitrite Urine Bilirubin Urine Urobilinogen Ur Leukocyte Esterase Ur Microscopic Review Urine Culture Comments - Rads (name of study) CT abd Radiology: Final report received (Focal area of abnormal colon involving the mid ascending colon. There is also focal area of abnormal small bowel involving the ileum at a distance from the terminal ileum prominent mesenteric lymph nodes) PD MEDICAL DECISION MAKING - ED course Complexity details: reviewed results, re-evaluated patient, d/w patient ED course: 45-year-old male presents the emergency department for evaluation of acute right groin pain. He is concerned he could have a kidney stone however I am more suspicious that he may have a inguinal hernia but I was unable to appreciate 1 on exam. This follows a recent admission to [facility] for acute kidney injury in the setting of methamphetamine use and severe dehydration as well as rhabdomyolysis. He does report to me that he has continued to use met hamphetamine since he was discharged on 02 January. Screening labs show no leukocytosis. His lactate is not elevated. His urine shows no blood or signs of infection. CBC and chemistry including his kidney function is unremarkable. The cause of the pain was not clear therefore CT of the abdomen was completed. It does show focal abnormal colon involving the ascending colon as well as the small bowel. The differential included inflammatory bowel disease such as Crohn's versus an ischemia versus an embolic phenomena. I have a low suspicion for an ischemic bowel given the normal lactate and lack of abdominal tenderness on exam. This gentleman has not had any fevers, vomiting or melanotic stools. The CT does suggest a cystitis but his urine does not show signs of infection therefore we will defer antibiotics at this time. The cause of this gentlemen's groin pain is not clear. Given recent and concurrent methamphetamine use I did declined to prescribe him narcotics. He does have follow-up with his primary care provider. I have advised the patient that if his symptoms worsen, he develops fevers abdominal pain or has bloody stools he should return immediately to the ER for a second evaluation. Impression: lower groin pain methamphetamine use Departure - Departure Disposition: Home, Self Care Condition: Stable Record reviewed to determine appropriate education?: Yes Instructions: ED Abdominal Pain Unkn Cause Follow-Up: Ganga Goel DO [Primary Care Provider] - Comments: Mazin boyer were seen in the ER today for lower groin pain. All of your screening labs were normal. Your urine shows no signs of infection. The CT of your abdomen did suggest that you may have an inflammation in certain areas of the colon. This is something that should resolve within a few days. Please Abstain from any further meth use as it may be complicating your symptoms. If you find you are having worsening pain, develop any fevers, have vomiting black or bloody stools develop diarrhea you must return immediately to the ER for a second evaluation.
--- NOTE | 2021-01-05 17:31 | CT Report ---
PROCEDURE: Abdomen/Pelvis W INDICATIONS: right flank/groin pain; ? inguinal hernia or stone CONTRAST: IV CONTRAST: Optiray 320 ml: 100 PO CONTRAST: *NO PO CONTRAST TECHNIQUE: After the administration of intravenous contrast, 5 mm thick sections acquired from the diaphragms to the symphysis. 5 mm thick coronal and sagittal reformats were acquired. For radiation dose reducti on, the following was used: automated exposure control, adjustment of mA and/or kV according to ingrid ent size. COMPARISON: None. FINDINGS: Image quality: Excellent. ABDOMEN: Lung bases: Minimal atelectasis in the extreme right lung base. Heart size is normal. Solid organs: Liver and spleen are normal in size and enhancement. Gallbladder is unremarkable Mike iary system is non dilated. Pancreas enhances normally. No adrenal nodules. Kidneys demonstrate no rmal size and enhancement, without hydronephrosis. Peritoneum and bowel: There is focal diffuse wall thickening involving the mid ascending colon. Refer ence image 29/6 (coronal reformats) The cecum and distal ascending colon have a normal appearance of the wall. Additionally, there is focal wall thickening and edema involving a loop of ileum which is a t a distance from the terminal ileum. Reference image 21/6 and image 18/6.. No intramural air. No skylar e fluid or air. Nodes and vessels: No retroperitoneal or mesenteric adenopathy by size criteria. Prominent mesenteri c lymph nodes are likely reactive in nature. Aorta and inferior vena cava are normal in size. Miscellaneous: No ventral hernias. PELVIS: Genitourinary: Diffuse bladder wall thickening. Miscellaneous: No inguinal hernias or adenopathy. Bones: No suspicious bony lesions. No vertebral body compression fractures. Bilateral L5 pars defe cts. Mild anterolisthesis of L5 on S1. Severe bilateral L5-S1 foraminal narrowing. IMPRESSION: 1. There is a focal area of abnormal colon involving the mid ascending colon. There is also a focal a linda of abnormal small bowel involving the ileum at a distance from the terminal ileum. There are prom inent mesenteric lymph nodes, which are likely reactive. The differential diagnosis includes inflamma tory bowel disease such as Crohn's disease versus focal areas of bowel ischemia secondary to embolic phenomena. 2. Diffuse bladder wall thickening, possibly indicating cystitis. 3. Incidental note made of bilateral L5 pars defects, anterolisthesis of L5 and S1, and severe bilate ral L5-S1 foraminal narrowing Reviewed by: Ze Hinojosa MD on 01/05/2021 4:29 PM KUSHAL Approved by: Ze Hinojosa MD on 01/05/2021 4:29 PM KUSHAL Station ID: [id number]
[2021-01-05 18:12] VITALS: BP 119/85
== END 2021-01-05 19:07 | disposition home or self-care (01) ==
LOC: ED 14:02
DX: R10.31 Right lower quadrant pain (principal); F15.10 Other stimulant abuse, uncomplicated
CPT/HCPCS: 36415; 74177; 80053; 81003; 83605; 83690; 85025; 96360; 99284; Q9967; 81001; 87086

== ENCOUNTER 2021-01-30 12:47 | Outpatient (CLI) | payer MEDICAID | END 2021-01-30 12:48 | disposition critical access hospital (66) | LOC: EMS 12:47 | DX: R10.9 Unspecified abdominal pain (principal); R11.10 Vomiting, unspecified; R25.2 Cramp and spasm | CPT/HCPCS: A0425; A0427 ==

== ENCOUNTER 2021-01-30 13:24 | Emergency (ER) | payer MEDICAID ==
[2021-01-30] MEDS ORDERED: DROPERIDOL 5 MG/2 ML VIAL IVP STA (13:41)
--- NOTE | 2021-01-30 13:45 | ED Physician Documentation ---
History of Present Illness - Stated complaint Stated Complaint: VOMITING - Chief complaint Chief Complaint: Abd Pain - History obtained from History obtained from: Patient - Additonal information Additional information: Patient comes emergency department chief complaint of upper abdominal pain, nausea, and vomiting that began last night. Patient states he was feeling fine all day and then took a bite of a nectarine and began to feel cramping in his upper abdomen. He states that he began to feel nauseated and began vomiting. Said multiple episodes of vomiting overnight. No diarrhea. No fevers or chills. No other complaints at this time. He states that he was in a car a couple days ago with "some lady" and he found out later that she had started vomiting after getting out of the car. Review of Systems Ten Systems: 10 systems reviewed and negative Constitutional: reports: Reviewed and negative Eyes: reports: Reviewed and negative Ears: reports: Reviewed and negative Nose: reports: Reviewed and negative Throat: reports: Reviewed and negative Cardiac: reports: Reviewed and negative Respiratory: reports: Reviewed and negative GI: reports: Abdominal Pain, Nausea, Vomiting : reports: Reviewed and negative Skin: reports: Reviewed and negative Musculoskeletal: reports: Reviewed and negative Neurologic: reports: Reviewed and negative Psychiatric: reports: Reviewed and negative Endocrine: reports: Reviewed and negative Immunocompromised: reports: Reviewed and negative PD PAST MEDICAL HISTORY - Past Medical History Respiratory: None Endocrine/Autoimmune: None Psych: Other Musculoskeletal: Chronic back pain - Past Surgical History Past Surgical History: No - Present Medications Home Medications: Ambulatory Orders Medication Instructions Recorded Confirmed Ondansetron Odt [Zofran] 4 mg TL Q6H PRN #10 tablet 01/30/21 - Allergies Allergies/Adverse Reactions: Allergies Allergy/AdvReac Type Severity Reaction Status Date / Time No Known Drug Allergies Allergy Verified 01/30/21 13:35 - Social History Does the pt smoke?: No Smoking Status: Never smoker Does the pt drink ETOH?: Yes Does the pt have substance abuse?: Yes - Immunizations Immunizations are current?: Yes Immunizations: TDAP >10years/unknown - POLST Patient has POLST: No PD ED PE NORMAL - Vitals Vital signs reviewed: Yes - General General: Alert and oriented X 3, No acute distress, Well developed/nourished - HEENT HEENT: Atraumatic, PERRL, EOMI, Moist mucous membranes - Neck Neck: Supple, no meningeal sign - Cardiac Cardiac: RRR, No murmur, Strong equal pulses - Respiratory Respiratory: No respiratory distress, Clear bilaterally - Abdomen Abdomen: Soft, Non distended, Other (Moderate epigastric tenderness, no rebound or guarding.) - Derm Derm: Normal color, Warm and dry, No rash - Extremities Extremities: No deformity, No edema - Neuro Neuro: Alert and oriented X 3 - Psych Psych: Normal mood, Normal affect Results - Vitals Vitals: Vital Signs - 24 hr 01/30/21 01/30/21 01/30/21 13:33 13:53 15:12 Temperature 36.6 C Heart Rate 105 H 99 81 Respiratory 16 18 13 Rate Blood Pressure 154/100 H 131/101 H 128/96 H O2 Saturation 99 100 100 01/30/21 15:51 Temperature Heart Rate 98 Respiratory 14 Rate Blood Pressure 138/97 H O2 Saturation 99 Oxygen O2 Source Room air - Labs Labs: Laboratory Tests 01/30/21 13:54 Sodium 137 Potassium 3.5 Chloride 99 L Carbon Dioxide 26 Anion Gap 12.0 BUN 22 H Creatinine 1.0 Estimated GFR (MDRD) 81 L Glucose 143 H Calcium 9.4 Total Bilirubin 1.0 AST 26 ALT 32 Alkaline Phosphatase 97 Total Protein 7.6 Albumin 3.9 Globulin 3.7 Albumin/Globulin Ratio 1.1 Lipase 28 PD MEDICAL DECISION MAKING - ED course Complexity details: reviewed results, re-evaluated patient, considered differential, d/w patient ED course: The patient had IV fluids running upon arrival the emergency department and these were finished. He was given a dose of droperidol while here, as well. ER abdominal panel was sent and was unremarkable. Patient was feeling better and was stable for discharge home. We have discussed the usual indications for return. Departure - Departure Disposition: 01 Home, Self Care Clinical Impression: Vomiting Qualifiers: Vomiting type: bilious vomiting Nausea presence: with nausea Qualified Code(s): R11.14 - Bilious vomiting Condition: Stable Instructions: ED Nausea Vomiting Prescriptions: Ondansetron Odt [Zofran] 4 mg TL Q6H PRN #10 tablet PRN Reason: Nausea / Vomiting Comments: Your tests look goodthere is no evidence of pancreatitis or any other serious condition this time. You have most likely picked up on the many viruses that are going around at this time and causing the symptoms. You may take the Zofran as needed for nausea. Please do not try to take anything more than small amounts of clear liquid at a time today. If after tonight you are still able to hold down clear liquids, you may progress to simple starches like Ramen noodles or saltine crackers tomorrow. Following this, you may advance your diet continually if your stomach is able to handle the simple starches. Please follow-up with your doctor for any further concerns. Discharge Date/Time: 01/30/21 15:57
[2021-01-30 14:13] LABS: ALBUMIN 3.9 g/dL (3.2-5.5); ALBUMIN/GLOBULIN RATIO 1.1 (1.0-2.2); CALCIUM 9.4 mg/dL (8.5-10.3); POTASSIUM 3.5 mmol/L (3.5-5.0); TOTAL PROTEIN 7.6 g/dL (6.7-8.2)
[2021-01-30 15:53] VITALS: BP 138/97
== END 2021-01-30 15:57 | disposition home or self-care (01) ==
LOC: EDUNIT# → ED 13:24
DX: R11.14 Bilious vomiting (principal)
CPT/HCPCS: 36415; 80053; 83690; 96374; 99284

== ENCOUNTER 2021-02-05 19:04 | Outpatient (CLI) | payer MEDICAID | END 2021-02-05 19:05 | disposition critical access hospital (66) | LOC: EMS 19:04 | DX: M79.10 Myalgia, unspecified site (principal); R41.0 Disorientation, unspecified; R42 Dizziness and giddiness | CPT/HCPCS: A0425; A0427; A0999 ==

== ENCOUNTER 2021-02-05 19:40 | Emergency (ER) | payer MEDICAID ==
[2021-02-05 19:52] VITALS: BP 136/94
--- NOTE | 2021-02-05 20:33 | ED Physician Documentation ---
History of Present Illness - Stated complaint Stated Complaint: WEAKNESS - Chief complaint Chief Complaint: General - History obtained from History obtained from: Patient, EMS - Additonal information Additional information: 45yM with pmh polysubstance abuse p/w hypotension and weakness at the fire station earlier today. patient had alcohol this morning, last etoh reported to RN was this AM and to me was 2pm. he is clinically sober at present and states he feels better after ivf administered by ems. history limited by patient noncompliance. asking to leave AMA Review of Systems Unable to obtain: Uncooperative Constitutional: reports: Fatigue. denies: Fever, Chills Neurologic: reports: Other (weakness) PD PAST MEDICAL HISTORY - Past Medical History Respiratory: None Endocrine/Autoimmune: None Psych: Other Musculoskeletal: Chronic back pain - Past Surgical History Past Surgical History: No - Allergies Allergies/Adverse Reactions: Allergies Allergy/AdvReac Type Severity Reaction Status Date / Time No Known Drug Allergies Allergy Verified 02/05/21 19:53 - Social History Does the pt smoke?: No Smoking Status: Never smoker Does the pt drink ETOH?: Yes Does the pt have substance abuse?: Yes - Immunizations Immunizations are current?: Yes Immunizations: TDAP >10years/unknown - POLST Patient has POLST: No PD ED PE NORMAL - Vitals Vital signs reviewed: Yes - General General: Alert and oriented X 3, No acute distress, Well developed/nourished - HEENT HEENT: Atraumatic, PERRL, EOMI - Neck Neck: Supple, no meningeal sign - Cardiac Cardiac: Other (borderline tachycardic rate, reg rhythm) - Respiratory Respiratory: No respiratory distress, Clear bilaterally - Derm Derm: Normal color, Warm and dry - Extremities Extremities: No deformity - Neuro Neuro: Alert and oriented X 3 - Psych Psych: Normal mood, Normal affect Results - Vitals Vitals: Vital Signs - 24 hr 02/05/21 19:45 Heart Rate 110 H Respiratory 18 Rate Blood Pressure 136/94 H O2 Saturation 100 Oxygen O2 Source Room air PD MEDICAL DECISION MAKING - ED course ED course: 8pm - patient refused bloodwork, says he didn't want to come in, and would like to go home. he denies illicit drug use, stating he had alcohol this morning with last drink around 2pm. states he feels back to baseline. tried to convince him to stay for medical workup but he has capacity to refuse. He agreed to do AMA paperwork. Along with ANGELA Day as witness, I went over risks of leaving AMA and reviewed the form with him. He took several minutes to read over the form, states he doesn't have any questions, but has not signed it. I will leave him to think for a little bit and check in if he changes his mind. Patient decided to sign AMA and RN witnessed it. Departure - Departure Disposition: 07 Against Medical Advice Clinical Impression: Weakness, Hypotension Condition: Stable Instructions: ED Hypotension All Causes Comments: You were seen in the emergency department for low blood pressure. Since you wanted to go home and have capacity to refuse care, I am letting you leave against medical advice. Please return to the emergency department immediately if you have new or worsening symptoms or other concerns or if you change your mind about bloodwork/medical workup.
== END 2021-02-05 21:09 | disposition left against medical advice (07) ==
LOC: EDUNIT# → SUPCPDRO 19:40 → ED 19:40
DX: I95.9 Hypotension, unspecified (principal); R53.1 Weakness; Z53.29 Procedure and treatment not carried out because of patient's decision for other reasons
CPT/HCPCS: 80053; 80320; 83605; 85025; 87040; 99281; 99283

== ENCOUNTER 2022-10-01 15:48 | Emergency (ER) | payer MEDICAID ==
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
--- NOTE | 2022-10-01 17:20 | CT Report ---
PROCEDURE: MAXILLOFACIAL WO INDICATIONS: eval for possible right orbital fracture TECHNIQUE: Noncontrast 1.5 mm thick axial images acquired from the mandible through the frontal sinuses, with co jose raul and sagittal reformatting. For radiation dose reduction, the following was used: automated ex posure control, adjustment of mA and/or kV according to patient size. COMPARISON: None. FINDINGS: Image quality: Excellent. Bones and teeth: Comminuted fractures are present within the inferior and medial right orbital silverio. Air is symmetrical space fat herniation is identified without definitive rectus muscle entrapment.. Sinus silverio show no fracture or deformity. Nasal bones and septum are intact. Visualized portions o f the mandible demonstrate no fractures or subluxation. Zygomatic arches are intact. Pterygoid plat es are intact. Visualized portions of the skull base and auditory canals are intact. Sinuses: There is mucosal thickening and fluid within the right maxillary sinus, mild mucosal thicken ing noted on the left. Soft tissues: Right facial/periorbital soft tissue edema is present. Vascular: Visualized vascular structures appear normal in the absence of contrast. Bony vascular fo ramina and canals are intact. IMPRESSION: Comminuted right medial inferior orbital wall fractures without evidence of rectus muscle entrapment. Reviewed by: Luz Potts MD on 10/01/2022 5:18 PM PDT Approved by: Luz Potts MD on 10/01/2022 5:18 PM PDT Station ID: [id number]
[2022-10-01 17:59] VITALS: BP 132/93
== END 2022-10-01 17:59 | disposition home or self-care (01) ==
LOC: ED 15:48
DX: S02.85XA Fracture of orbit, unspecified, initial encounter for closed fracture (principal); Y04.2XXA Assault by strike against or bumped into by another person, initial encounter
CPT/HCPCS: 36415; 99283; 99284

== ENCOUNTER 2022-11-23 16:34 | Emergency (ER) | payer MEDICAID ==
--- NOTE | 2022-11-23 17:06 | XRAY Report ---
PROCEDURE: Ankle 3 View RT INDICATIONS: pain/injury TECHNIQUE: 3 views of the ankle were acquired. COMPARISON: None. FINDINGS: Bones: No fractures or dislocations. Ankle mortise is normally aligned. No suspicious bony lesions . Soft tissues: No tibiotalar joint effusion. Achilles tendon appears normal. IMPRESSION: No acute fracture. No osseous lesion. If symptoms and/or clinical suspicion for pathology continue, f urther assessment with repeat plain films, or advanced imaging (e.g., CT, MRI, or bone scan) is recom mended for further assessment. Reviewed by: Dona Houston MD on 11/23/2022 4:05 PM [facility] Approved by: Dona Houston MD on 11/23/2022 4:05 PM [facility] Station ID: [id number]
[2022-11-23] MEDS ORDERED: LIDOCAINE 1% 2 ML VIAL MC ONE (17:25)
[2022-11-23] MEDS ORDERED: cefTRIAXone 1 GM VIAL IM STA (17:25)
[2022-11-23] MEDS ORDERED: oxyCODONE 5 MG TABLET PO STA (17:25)
[2022-11-23] MEDS ORDERED: SULFAMETH/TRIMETH DS 800/160 MG TABLET PO STA (17:25)
[2022-11-23] MEDS ORDERED: TETANUS/DIPHTHERIA TOXOID 0.5 ML SYRINGE IM ONE (17:29)
--- OUTSIDE RECORDS SUMMARY | 2022-11-23 17:39 | EXTERNAL MEDICAL SUMMARY RPT | Continuity of Care Document ---
Author Name Unknown Address [address] [place] [address] Phone Organization [facility] Address [address] [place] [address] Phone Care Team Providers Care Orthopedic Mechanic Name Role Phone Unavailable Unavailable Unavailable Riddhi Menezes Unavailable Unavailable Problems date description facility 2022-10-01 00:00 Pain in or around eye [facility] 2022-10-01 00:00 Pain in eye [facility] 2022-10-01 00:00 Monocular diplopia [facility] 2022-10-01 00:00 Diplopia [facility] 2022-10-01 00:00 Ocular pain, unspecified eye [facility] 2022-11-12 00:00 Rib pain [facility] 2022-11-12 00:00 Unspecified chest pain [facility] 2022-11-12 00:00 Pleurodynia [facility] Procedures date description facility 2022-10-01 00:00 Visit Code Hold [facility] 2022-11-12 00:00 Visit Code Hold [facility] Social History date description facility 2022-10-01 00:00 Never smoker [facility] 2022-11-12 00:00 Never smoker [facility] Vital Signs date measurement value units 2022-10-01 00:00 BMI 27.83 kg/m2 2022-10-01 00:00 BP_diastolic 94 mmHg 2022-10-01 00:00 BP_systolic 135 mmHg 2022-10-01 00:00 heart_rate 80 /min 2022-10-01 00:00 height_metric 187.96 cm 2022-10-01 00:00 height_standard 74 in 2022-10-01 00:00 respiration_rate 16 /min 2022-10-01 00:00 temperature_metric 36.11 C 2022-10-01 00:00 temperature_standard 97 F 2022-10-01 00:00 weight_metric 97.98 kg 2022-10-01 00:00 weight_standard 216 lb 2022-11-12 00:00 BMI 27.83 kg/m2 2022-11-12 00:00 BP_diastolic 98 mmHg 2022-11-12 00:00 BP_systolic 150 mmHg 2022-11-12 00:00 heart_rate 101 /min 2022-11-12 00:00 height_metric 187.96 cm 2022-11-12 00:00 height_standard 74 in 2022-11-12 00:00 respiration_rate 16 /min 2022-11-12 00:00 temperature_metric 36.33 C 2022-11-12 00:00 temperature_standard 97.4 F 2022-11-12 00:00 weight_metric 97.98 kg 2022-11-12 00:00 weight_standard 216 lb
--- NOTE | 2022-11-23 17:40 | ED Physician Documentation ---
History of Present Illness - Stated complaint Stated Complaint: RIGHT ANKLE PX - Chief complaint Chief Complaint: Ext Problem - History obtained from History obtained from: Patient - History of Present Illness Timing: How many days ago (2-3) Pain level max: 5 Pain level now: 5 - Additonal information Additional information: 47-year-old male presents to the emergency department with right ankle pain, redness and swelling. He states that he has 2 wounds to the ankle that have started to become more red over the past few days. He states he has been around someone who has MRSA. No fevers. No chills. Does not recall any injuries. Worse with ambulation, nothing makes it better. Denies any traumas or fall. Patient denies any IV drug use. Review of Systems Constitutional: denies: Fever, Chills Respiratory: denies: Cough GI: denies: Nausea, Vomiting, Diarrhea Musculoskeletal: denies: Neck pain, Back pain Neurologic: denies: Headache PD PAST MEDICAL HISTORY - Past Medical History Past Medical History: Yes Respiratory: None Endocrine/Autoimmune: None Psych: Other Musculoskeletal: Chronic back pain - Past Surgical History Past Surgical History: No - Present Medications Home Medications: Ambulatory Orders Medication Instructions Recorded Confirmed Sulfamethox/Trimeth 800/160 1 each PO BID #20 tablet 11/23/22 [Bactrim Ds 800/160] cephALEXin [Keflex] 500 mg PO Q6H #40 cap 11/23/22 - Allergies Allergies/Adverse Reactions: Allergies Allergy/AdvReac Type Severity Reaction Status Date / Time No Known Drug Allergies Allergy Verified 11/23/22 16:56 - Social History Does the pt smoke?: No Smoking Status: Never smoker Does the pt drink ETOH?: Yes Does the pt have substance abuse?: Yes - Immunizations Immunizations are current?: Yes Immunizations: TDAP >10years/unknown - POLST Patient has POLST: No PD ED PE NORMAL - Vitals Vital signs reviewed: Yes - General General: Alert and oriented X 3, No acute distress - HEENT HEENT: Moist mucous membranes - Neck Neck: Supple, no meningeal sign - Derm Derm: Warm and dry - Extremities Extremities: Other (R ankle - There is swelling over the medial malleolus and mild erythema. Full range of motion of the knee, ankle and all toes without pain. No evidence of septic joint. No drainable abscess. There is a small wound as well.) - Neuro Neuro: Alert and oriented X 3 - Psych Psych: Normal mood, Normal affect Results - Vitals Vitals: Vital Signs - 24 hr 11/23/22 11/23/22 16:53 18:10 Temperature 36.4 C L 36.5 C Heart Rate 92 83 Respiratory 16 16 Rate Blood Pressure 124/91 H 143/73 H O2 Saturation 99 98 Oxygen O2 Source Room air - Rads (name of study) Right ankle x-ray Relevant Findings:: Final report received, See rad report PD Medical Decision Making - ED course Complexity details: reviewed results, re-evaluated patient, considered differential, d/w patient ED course: Patient with right ankle cellulitis. No evidence of septic joint. There is no abscess to drain at this time. No purulence to culture. We will place on antibiotics and have him follow-up closely with his doctor. Given IM Rocephin and oral Bactrim here. Also given a dose of pain medication here. Patient denies any IV drug use. Patient counseled regarding signs and symptoms for which I believe and urgent re-evaluation would be necessary. Patient with good understanding of and agreement to plan and is comfortable going home at this time This document was made in part using voice recognition software. While efforts are made to proofread this document, sound alike and grammatical errors may occur. Departure - Departure Disposition: 01 Home, Self Care Clinical Impression: Cellulitis Qualifiers: Site of cellulitis: extremity Site of cellulitis of extremity: lower extremity Laterality: right Qualified Code(s): L03.115 - Cellulitis of right lower limb Condition: Good Instructions: ED Infec Skin Cellulitis Follow-Up: PRABHAKAR ALVAREZ MD [Primary Care Provider] - Within 3 Days Prescriptions: Sulfamethox/Trimeth 800/160 [Bactrim Ds 800/160] 1 each PO BID #20 tablet cephALEXin [Keflex] 500 mg PO Q6H #40 cap Comments: Please take all antibiotics until gone. Please follow-up with your doctor for further care. Please return if you worsen. Your prescriptions were sent to [facility] in [place]. You should have a wound check with your doctor in approximately 3 days. Return sooner if you worsen. Discharge Date/Time: 11/23/22 18:15
[2022-11-23 18:11] VITALS: BP 143/73
== END 2022-11-23 18:15 | disposition home or self-care (01) ==
LOC: ED 16:34
DX: L03.115 Cellulitis of right lower limb (principal)
CPT/HCPCS: 73610; 90471; 90714; 96372; 99283; A9270

== ENCOUNTER 2023-01-07 12:42 | Inpatient (IN) | payer MEDICAID ==
--- OUTSIDE RECORDS SUMMARY | 2023-01-07 13:38 | EXTERNAL MEDICAL SUMMARY RPT | Continuity of Care Document ---
Author Name Unknown Address [address] [place] [address] Phone Organization [facility] Address [address] [place] [address] Phone Care Team Providers Care Machine Operator General Name Role Phone Unavailable Unavailable Unavailable Jorge Cooper-C, Riddhi Unavailable Unavailable Lalit Barillas-C, Samantha Unavailable Unavailable Medications date description facility 2023-01-06 00:00 doxycycline monohydrate [facility] 2023-01-06 00:00 ibuprofen [facility] 2023-01-06 00:00 doxycycline monohydrate [facility] 2023-01-06 00:00 CEFTRIAXONE SODIUM [facility] 2023-01-06 00:00 sulfamethoxazole-trimethoprim [facility] 2023-01-06 00:00 ibuprofen [facility] 2023-01-06 00:00 sulfamethoxazole-trimethoprim [facility] 2023-01-06 00:00 doxycycline monohydrate [facility] 2023-01-06 00:00 IBUPROFEN [facility] 2023-01-06 00:00 sulfamethoxazole-trimethoprim [facility] 2023-01-06 00:00 doxycycline monohydrate [facility] 2023-01-06 00:00 sulfamethoxazole-trimethoprim [facility] 2023-01-06 00:00 ibuprofen [facility] 2023-01-06 00:00 ibuprofen [facility] Problems date description facility 2022-11-12 00:00 Rib pain [facility] 2023-01-06 00:00 Abscess of left axilla [facility] 2023-01-06 00:00 Cutaneous abscess of left axill a [facility] Procedures date description facility 2022-11-12 00:00 Visit Code Hold [facility] 2022-11-12 00:00 Visit Code Hold [facility] 2023-01-06 00:00 Visit Code Hold [facility] Social History date description facility 2022-11-12 00:00 Never smoker [facility] 2022-11-12 00:00 Never smoker [facility] 2023-01-06 00:00 Never smoker [facility] Vital Signs date measurement value units 2022-11-12 00:00 BMI 27.83 kg/m2 2022-11-12 00:00 BP_diastolic 98 mmHg 2022-11-12 00:00 BP_systolic 150 mmHg 2022-11-12 00:00 heart_rate 101 /min 2022-11-12 00:00 height_metric 187.96 cm 2022-11-12 00:00 height_standard 74 in 2022-11-12 00:00 respiration_rate 16 /min 2022-11-12 00:00 temperature_metric 36.33 C 2022-11-12 00:00 temperature_standard 97.4 F 2022-11-12 00:00 weight_metric 97.98 kg 2022-11-12 00:00 weight_standard 216 lb 2023-01-06 00:00 BMI 28.13 kg/m2 2023-01-06 00:00 BP_diastolic 84 mmHg 2023-01-06 00:00 BP_systolic 155 mmHg 2023-01-06 00:00 heart_rate 115 /min 2023-01-06 00:00 height_metric 187.96 cm 2023-01-06 00:00 height_standard 74 in 2023-01-06 00:00 respiration_rate 17 /min 2023-01-06 00:00 temperature_metric 37.67 C 2023-01-06 00:00 temperature_standard 99.8 F 2023-01-06 00:00 weight_metric 99.02 kg 2023-01-06 00:00 weight_standard 218.3 lb
[2023-01-07] MEDS ORDERED: SODIUM CHLORIDE 0.9% 1,000 ML IV STA (13:57)
--- NOTE | 2023-01-07 13:59 | ED Physician Documentation ---
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 He was seen at the walk-in clinic yesterday and given a injection of antibiotic and got prescriptions for Keflex and Bactrim which she has not yet filled. Pain and swelling are worse. PD PAST MEDICAL HISTORY - Past Medical History Respiratory: None Endocrine/Autoimmune: None Psych: Other Musculoskeletal: Chronic back pain - Past Surgical History Past Surgical History: No - Present Medications Home Medications: Ambulatory Orders Medication Instructions Recorded Confirmed No Known Home Medications 01/07/23 01/07/23 - Allergies Allergies/Adverse Reactions: Allergies Allergy/AdvReac Type Severity Reaction Status Date / Time No Known Drug Allergies Allergy Verified 01/07/23 12:56 - Social History Does the pt smoke?: No Smoking Status: Never smoker Does the pt drink ETOH?: Yes Does the pt have substance abuse?: Yes - Immunizations Immunizations are current?: Yes Immunizations: TDAP >10years/unknown - POLST Patient has POLST: No PD ED PE NORMAL - Vitals Vital signs reviewed: Yes - General General: Alert and oriented X 3, No acute distress - HEENT HEENT: PERRL, EOMI, Other (Mallampati I) - Neck Neck: Supple, no meningeal sign, No bony TTP - Derm Derm: Other (There is a large cutaneous abscess in the left axilla with moderate surrounding cellulitis.) - Neuro Neuro: Alert and oriented X 3, Normal speech Results - Vitals Vitals: Vital Signs - 24 hr 01/07/23 01/07/23 01/07/23 12:49 14:46 14:50 Temperature 36.0 C L Heart Rate 93 88 Respiratory 18 16 16 Rate Blood Pressure 129/77 133/82 H O2 Saturation 98 91 L 88 L If not protocol : Oxygen Flow, liters/minute 01/07/23 01/07/23 01/07/23 14:54 15:03 15:09 Temperature Heart Rate 90 88 101 H Respiratory 14 15 20 Rate Blood Pressure 118/73 140/77 H O2 Saturation 100 97 97 If not protocol 2 : Oxygen Flow, liters/minute 01/07/23 01/07/23 01/07/23 15:12 15:17 15:20 Temperature Heart Rate 100 93 100 Respiratory 20 19 22 Rate Blood Pressure 150/108 H 148/119 H O2 Saturation 100 100 If not protocol : Oxygen Flow, liters/minute 01/07/23 15:21 Temperature Heart Rate 90 Respiratory 14 Rate Blood Pressure 143/91 H O2 Saturation 99 If not protocol : Oxygen Flow, liters/minute Oxygen O2 Source Nasal cannula Oxygen Flow Rate 2 - Labs Labs: Laboratory Tests 01/07/23 01/07/23 14:05 14:05 WBC 16.2 H RBC 4.62 L Hgb 13.6 L Hct 43.3 MCV 93.7 MCH 29.4 MCHC 31.4 L RDW 14.0 Plt Count 291 MPV 9.1 Neut # (Auto) 14.4 H Lymph # (Auto) 0.8 L [place] # (Auto) 0.7 Eos # (Auto) 0.1 Baso # (Auto) 0.1 Absolute Nucleated RBC 0.00 Nucleated RBC % 0.0 Sodium 131 L Potassium 3.8 Chloride 96 L Carbon Dioxide 27 Anion Gap 8.0 BUN 18 Creatinine 1.1 Estimated GFR (MDRD) 72 L Glucose 165 H Calcium 9.4 Procedures - Abscess I&D (location) L axilla Preparation: Betadine, Lidocaine 1% Incision: Incised with scalpel, Purulent drainage, Loculations broken, Packed, Culture obtained Other: Pt tolerated well, Dressing applied, Antibiotic prescribed - Procedural sedation Sedation prep: Informed consent, Time out completed, ASA 2 - mild disease Sedation Medications: propofol (80 then 60 IVP= 140mg total) Mallampati classification: I Patient status during sedation: Responds to tactile Sedation recovery: Recovered uneventfully, Slow recovery Time in sedation (Minutes): 10 PD Medical Decision Making - ED course ED course: 47-year-old gentleman with polysubstance abuse presents with a large left axillary abscess. He has a history of MRSA. He was sedated and an I&D was done. He was started on vancomycin. Given the size of the abscess, noting it probes to about 10 cm, and significant cellulitis decision was made to admit. I spoke with Dr. Nj our on-call surgeon who will consult if our hospitalist so desires and called the hospitalist for admission at 3:19 PM. Departure - Departure Disposition: 66 [facility] DC/Xfer Clinical Impression: Abscess of left axilla, Polysubstance abuse Cellulitis Qualifiers: Site of cellulitis: extremity Site of cellulitis of extremity: axilla Condition: Serious
[2023-01-07] MEDS ORDERED: CLINDAMYCIN 900 MG/50 ML 50 ML IV ONE (14:02)
[2023-01-07] MEDS ORDERED: PROPOFOL 200 MG/20 ML VIAL IVP STA (14:03)
[2023-01-07] MEDS ORDERED: HYDROmorphone 1 MG/ML CARPUJECT IVP STA (14:03)
[2023-01-07 14:12] LABS: BASOPHILS # (AUTO) 0.1 10^3/uL (0.0-0.1); BASOPHILS % (AUTO) 0.3 %; EOSINOPHILS # (AUTO) 0.1 10^3/uL (0.0-0.7); EOSINOPHILS % (AUTO) 0.4 %; HCT - HEMATOCRIT 43.3 % (42.0-52.0); HGB - HEMOGLOBIN 13.6 g/dL (14.0-18.0); LYMPHOCYTES # (AUTO) 0.8 10^3/uL (1.5-3.5); LYMPHOCYTES % (AUTO) 4.7 %; MEAN CORPUSCULAR HEMOGLOBIN 29.4 pg (27.0-31.0); MEAN CORPUSCULAR HGB CONC 31.4 g/dL (32.0-36.0); MEAN CORPUSCULAR VOLUME 93.7 fL (80.0-94.0); MEAN PLATELET VOLUME 9.1 fL (7.4-11.4); MONOCYTES # (AUTO) 0.7 10^3/uL (0.0-1.0); MONOCYTES % (AUTO) 4.3 %; NEUTROPHILS # (AUTO) 14.4 10^3/uL (1.5-6.6); NEUTROPHILS % (AUTO) 88.9 %; PLT - PLATELET COUNT 291 10^3/uL (130-450); RED BLOOD COUNT 4.62 10^6/uL (4.70-6.10); WHITE BLOOD COUNT 16.2 x10^3/uL (4.8-10.8)
[2023-01-07 14:19] LABS: CALCIUM 9.4 mg/dL (8.5-10.3); CREATININE 1.1 mg/dL (0.6-1.2); POTASSIUM 3.8 mmol/L (3.5-5.0)
[2023-01-07] MEDS ORDERED: VANCOMYCIN INJ 2 GM in SODIUM CHLORIDE 0.9% 500 ML IV STA (15:13)
[2023-01-07] MEDS ORDERED: ONDANSETRON 4 MG/2 ML VIAL IVP PRN (15:29)
[2023-01-07] MEDS ORDERED: ONDANSETRON ODT 4 MG TABLET TL PRN (15:29)
[2023-01-07] MEDS ORDERED: VANCOMYCIN INJ 2 GM, VANCOMYCIN INJ 500 MG in SODIUM CHLORIDE 0.9% 500 ML IV STA (15:39)
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
[2023-01-07 16:44] LABS: MUDS CUTOFF CONCENTRATIONS CUTOFF CONC BELOW:
[2023-01-07] MEDS: SODIUM CHLORIDE 0.9% 1,000 ML IV SCH (16:55)
[2023-01-07 16:59] LABS: AMPHETAMINE SCREEN,URINE POSITIVE (NEGATIVE); BARBITURATE SCREEN,UR NEGATIVE (NEGATIVE); BENZODIAZEPINES SCREEN, URINE NEGATIVE (NEGATIVE); COCAINE SCREEN URINE NEGATIVE (NEGATIVE); METHADONE SCREEN, URINE NEGATIVE (NEGATIVE); METHAMPHETAMINES SCREEN, URINE POSITIVE (NEGATIVE); OPIATE SCREEN, URINE NEGATIVE (NEGATIVE); OXYCODONE SCREEN, URINE NEGATIVE (NEGATIVE); PROPOXYPHENE SCREEN, URINE NEGATIVE (NEGATIVE); THC CANNABINOID SCREEN, URINE NEGATIVE (NEGATIVE); TRICYCLIC ANTIDEPRESSANT,URINE NEGATIVE (NEGATIVE)
[2023-01-07] MEDS: IBUPROFEN 400 MG TABLET PO PRN ×2 (17:06→23:52)
[2023-01-07] MEDS: oxyCODONE 5 MG TABLET PO PRN (17:07)
[2023-01-07] MEDS: SODIUM CHLORIDE FLUSH 0.9% 10 ML SYRINGE IVP SCH (18:13)
[2023-01-08] MEDS: VANCOMYCIN INJ 1 GM, VANCOMYCIN INJ 500 MG in SODIUM CHLORIDE 0.9% 500 ML IV SCH ×2 (03:44→16:23)
[2023-01-08] MEDS: oxyCODONE 5 MG TABLET PO PRN ×4 (03:45→20:44)
[2023-01-08] MEDS: SODIUM CHLORIDE FLUSH 0.9% 10 ML SYRINGE IVP SCH ×3 (03:46→16:23)
[2023-01-08 06:02] LABS: BASOPHILS % (AUTO) 0.3 %; EOSINOPHILS # (AUTO) 0.4 10^3/uL (0.0-0.7); EOSINOPHILS % (AUTO) 2.8 %; HCT - HEMATOCRIT 38.6 % (42.0-52.0); HGB - HEMOGLOBIN 12.1 g/dL (14.0-18.0); LYMPHOCYTES # (AUTO) 1.2 10^3/uL (1.5-3.5); LYMPHOCYTES % (AUTO) 8.9 %; MEAN CORPUSCULAR HEMOGLOBIN 29.6 pg (27.0-31.0); MEAN CORPUSCULAR HGB CONC 31.3 g/dL (32.0-36.0); MEAN CORPUSCULAR VOLUME 94.4 fL (80.0-94.0); MEAN PLATELET VOLUME 9.8 fL (7.4-11.4); MONOCYTES # (AUTO) 1.2 10^3/uL (0.0-1.0); MONOCYTES % (AUTO) 8.8 %; NEUTROPHILS # (AUTO) 10.5 10^3/uL (1.5-6.6); NEUTROPHILS % (AUTO) 78.1 %; PLT - PLATELET COUNT 278 10^3/uL (130-450); RED BLOOD COUNT 4.09 10^6/uL (4.70-6.10); RED CELL DISTRIBUTION WIDTH 14.1 % (12.0-15.0); WHITE BLOOD COUNT 13.4 x10^3/uL (4.8-10.8)
[2023-01-08 06:33] LABS: ALBUMIN 2.8 g/dL (3.2-5.5); ALBUMIN/GLOBULIN RATIO 0.7 (1.0-2.2); BILIRUBIN,TOTAL 0.5 mg/dL (0.2-1.0); CALCIUM 8.6 mg/dL (8.5-10.3); CREATININE 0.8 mg/dL (0.6-1.2); CRP - C-REACTIVE PROTEIN 29.9 mg/dL (0-1.0); POTASSIUM 4.2 mmol/L (3.5-5.0)
[2023-01-08] MEDS: ENOXAPARIN 40 MG/0.4 ML SYRINGE SUBQ SCH (09:18)
[2023-01-08] MEDS: ACETAMINOPHEN 325 MG TABLET PO PRN ×3 (11:41→20:44)
--- NOTE | 2023-01-08 12:50 | PHARMACY PROGRESS NOTE ---
- Therapy Status Vancomycin regimen day #: 2 Therapy status: Awaiting steady state Basis for treatment: Empirical Treatment indication: AXILLARY ABSCESS Trough goal: 10-15 - HETAL Risk Risk level for Acute Kidney Injury: Low - Monitoring and Recommendation Clinical response to treatment: I&O Previous 24 hours 01/06/23 01/07/23 01/08/23 23:59 23:59 23:59 Intake Total 1945 1740 Output Total 1450 Balance 495 1740 Lab Results 01/08/23 01/07/23 05:44 14:05 BUN 14 18 Creatinine 0.8 1.1 Estimated GFR (MDRD) 104 72 L Cultures 01/07/23 15:10 Abscess Wound Culture - Preliminary Staphylococcus Aureus Monitoring plan: Daily serum creatinine Next trough due prior to maintenance dose #: 6 Next trough due (date/time): 01/10 AT 1500 Areas for additional monitoring: IV to PO when appropriate, Therapy de- escalation based on culture results Pharmacy recommendation: Continue current regime
[2023-01-08] MEDS: SODIUM CHLORIDE 0.9% 1,000 ML IV SCH (14:37)
[2023-01-08] MEDS: IBUPROFEN 400 MG TABLET PO PRN ×2 (14:40→18:44)
--- NOTE | 2023-01-08 16:15 | PROVIDER PROGRESS NOTE ---
Subjective - Prog Note Date Prog Note Date: 01/08/23 Prog Note Time: 16:12 - Subjective Subjective: He is requesting pain medicine before we do a dressing change. It is really painful just to take out the packing. The redness and induration has gone bey ond the markers that were present yesterday. Mainly along the deltoid area. But clinically there is no fever, white cell count is not worse, no tachycardia. He denies chest pain, palpitations, shortness of breath. Current Medications - Current Medications Current Medications: Active Medications Acetaminophen (Acetaminophen 325 Mg Tablet) 650 mg PO Q4HR PRN PRN Reason: Pain 1 to 4, or Fever Last Admin: 01/08/23 11:41 Dose: 650 mg Cholecalciferol (Cholecalciferol 25 Mcg Tablet) 50 mcg PO DAILY [facility] Enoxaparin Sodium (Enoxaparin 40 Mg/0.4 Ml Syringe) 40 mg SUBQ DAILY [facility] Last Admin: 01/08/23 09:18 Dose: Not Given Hydromorphone HCl (Hydromorphone 0.5 Mg/0.5 Ml Syringe) 0.5 mg IVP DAILY [facility] Vancomycin HCl 1 gm/Vancomycin HCl 500 mg/ Sodium Chloride 500 mls @ 250 mls/hr IV Q12H [facility] Last Infusion: 01/08/23 06:20 Dose: Infused Ibuprofen (Ibuprofen 400 Mg Tablet) 400 mg PO Q4HR PRN PRN Reason: Pain 1 to 4 Last Admin: 01/08/23 14:40 Dose: 400 mg Lactobacillus Rhamnosus (Lactobacillus Rhamnosus Gg Capsule) 1 cap PO DAILY [facility] Ondansetron HCl (Ondansetron Odt 4 Mg Tablet) 4 mg TL Q6HR PRN PRN Reason: Nausea / Vomiting Ondansetron HCl (Ondansetron 4 Mg/2 Ml Vial) 4 mg IVP Q6HR PRN PRN Reason: Nausea / Vomiting Oxycodone HCl (Oxycodone 5 Mg Tablet) 5 mg PO Q4HR PRN PRN Reason: Pain 5 to 7 Last Admin: 01/08/23 11:41 Dose: 5 mg Multivit/Folic Acid/Iron ( Vitamin Tablet) 1 tab PO DAILYWM [facility] Sodium Chloride (Sodium Chloride Flush 0.9% 10 Ml Syringe) 10 ml IVP PRN PRN PRN Reason: NEEDED PER PROVIDER ORDERS Sodium Chloride (Sodium Chloride Flush 0.9% 10 Ml Syringe) 10 ml IVP 0100,0900,1700 [facility] Last Admin: 01/08/23 09:19 Dose: Not Given Thiamine HCl (Thiamine 100 Mg Tablet) 100 mg PO DAILY [facility] No Known Home Medications 01/07/23 Objective - Vital Signs/Intake & Output Reviewed Vital Signs: Yes Vital Signs: Vital Signs x48h Temp Pulse Resp BP Pulse Ox 01/08/23 15:42 36.5 C 105 H 18 140/94 H 98 Intake & Output: Intake & Output 01/05/23 01/06/23 01/07/23 01/08/23 23:59 23:59 23:59 23:59 Intake Total 1945 2600 Output Total 1450 Balance 495 2600 - Objective General Appearance: positive: Alert (More distressed today than yesterday. Wincing more. Cringes when we touch his axilla to take the wound packing out) Eyes Bilateral: positive: PERRL, EOMI ENT: positive: No signs of dehydration Neck: positive: No JVD. negative: Stiff neck Respiratory: positive: No respiratory distress. negative: Wheezes, Rales, Rhonchi Cardiovascular: positive: Regular rate & rhythm. negative: Extrasystoles, Tachycardia Abdomen: positive: Non-tender, No organomegaly, Nml bowel sounds, No distention Skin: positive: Warm, Dry, Other (The redness and induration is the same as yesterday, however it is spreading more on the deltoid and medial skin to the biceps. But there is no new drainage. No new fluctuance as I palpate the skin around the I&D area) Extremities: positive: Full ROM. negative: No pedal edema Neurologic/Psychiatric: positive: Oriented x3, CN's nml (2-12), Motor nml - Lab Results Fish Bones: 01/08/23 05:44 01/08/23 05:44 Other Labs: Lab Results x24hrs 01/08/23 01/08/23 01/07/23 Range/Units 05:44 05:44 18:15 WBC 13.4 H (4.8-10.8) x10^3/uL RBC 4.09 L (4.70-6.10) 10^6/uL Hgb 12.1 L (14.0-18.0) g/dL Hct 38.6 L (42.0-52.0) % MCV 94.4 H (80.0-94.0) fL MCH 29.6 (27.0-31.0) pg MCHC 31.3 L (32.0-36.0) g/dL RDW 14.1 (12.0-15.0) % Plt Count 278 (130-450) 10^3/uL MPV 9.8 (7.4-11.4) fL Neut # (Auto) 10.5 H (1.5-6.6) 10^3/uL Lymph # (Auto) 1.2 L (1.5-3.5) 10^3/uL Wharton # (Auto) 1.2 H (0.0-1.0) 10^3/uL Eos # (Auto) 0.4 (0.0-0.7) 10^3/uL Baso # (Auto) 0.0 (0.0-0.1) 10^3/uL Absolute Nucleated RBC 0.00 x10^3/uL Nucleated RBC % 0.0 /100WBC Sodium 136 (135-145) mmol/L Potassium 4.2 (3.5-5.0) mmol/L Chloride 107 (101-111) mmol/L Carbon Dioxide 23 (21-32) mmol/L Anion Gap 6.0 (6-13) BUN 14 (6-20) mg/dL Creatinine 0.8 (0.6-1.2) mg/dL Estimated GFR (MDRD) 104 (>89) Glucose 133 H (70-100) mg/dL Calcium 8.6 (8.5-10.3) mg/dL Total Bilirubin 0.5 (0.2-1.0) mg/dL AST 52 H (10-42) IU/L ALT 84 H (10-60) IU/L Alkaline Phosphatase 115 (42-121) IU/L C-Reactive Protein 29.9 H (0-1.0) mg/dL Total Protein 7.0 (6.7-8.2) g/dL Albumin 2.8 L (3.2-5.5) g/dL Globulin 4.2 (2.1-4.2) g/dL Albumin/Globulin Ratio 0.7 L (1.0-2.2) Nasal Screen MRSA (PCR) POSITIVE A* (NEGATIVE) Urine Opiates Screen (NEGATIVE) Ur Oxycodone Screen (NEGATIVE) Urine Methadone Screen (NEGATIVE) Ur Propoxyphene Screen (NEGATIVE) Ur Barbiturates Screen (NEGATIVE) Ur Tricyclics Screen (NEGATIVE) Ur Phencyclidine Scrn (NEGATIVE) Ur Amphetamine Screen (NEGATIVE) U Methamphetamines Scrn (NEGATIVE) U Benzodiazepines Scrn (NEGATIVE) Urine Cocaine Screen (NEGATIVE) U Cannabinoids Screen (NEGATIVE) 01/07/23 Range/Units 16:30 WBC (4.8-10.8) x10^3/uL RBC (4.70-6.10) 10^6/uL Hgb (14.0-18.0) g/dL Hct (42.0-52.0) % MCV (80.0-94.0) fL MCH (27.0-31.0) pg MCHC (32.0-36.0) g/dL RDW (12.0-15.0) % Plt Count (130-450) 10^3/uL MPV (7.4-11.4) fL Neut # (Auto) (1.5-6.6) 10^3/uL Lymph # (Auto) (1.5-3.5) 10^3/uL Wharton # (Auto) (0.0-1.0) 10^3/uL Eos # (Auto) (0.0-0.7) 10^3/uL Baso # (Auto) (0.0-0.1) 10^3/uL Absolute Nucleated RBC x10^3/uL Nucleated RBC % /100WBC Sodium (135-145) mmol/L Potassium (3.5-5.0) mmol/L Chloride (101-111) mmol/L Carbon Dioxide (21-32) mmol/L Anion Gap (6-13) BUN (6-20) mg/dL Creatinine (0.6-1.2) mg/dL Estimated GFR (MDRD) (>89) Glucose (70-100) mg/dL Calcium (8.5-10.3) mg/dL Total Bilirubin (0.2-1.0) mg/dL AST (10-42) IU/L ALT (10-60) IU/L Alkaline Phosphatase (42-121) IU/L C-Reactive Protein (0-1.0) mg/dL Total Protein (6.7-8.2) g/dL Albumin (3.2-5.5) g/dL Globulin (2.1-4.2) g/dL Albumin/Globulin Ratio (1.0-2.2) Nasal Screen MRSA (PCR) (NEGATIVE) Urine Opiates Screen NEGATIVE (NEGATIVE) Ur Oxycodone Screen NEGATIVE (NEGATIVE) Urine Methadone Screen NEGATIVE (NEGATIVE) Ur Propoxyphene Screen NEGATIVE (NEGATIVE) Ur Barbiturates Screen NEGATIVE (NEGATIVE) Ur Tricyclics Screen NEGATIVE (NEGATIVE) Ur Phencyclidine Scrn NEGATIVE (NEGATIVE) Ur Amphetamine Screen POSITIVE H (NEGATIVE) U Methamphetamines Scrn POSITIVE H (NEGATIVE) U Benzodiazepines Scrn NEGATIVE (NEGATIVE) Urine Cocaine Screen NEGATIVE (NEGATIVE) U Cannabinoids Screen NEGATIVE (NEGATIVE) ABX Reporting Has patient been on IV antibiotics over the past 48 hours?: Yes Assessment/Plan - Problem List (1) Cellulitis Impression: Conclusion/Plan - Problem List (1) Cellulitis Conclusion/Plan: On admission, elevated white cell count, tachycardia to 101, no fever. But source of infection being quite impressive with a huge abscess in his axilla and surrounding cellulitis.He has a history of MRSA infections.Creatinine 1.1. Today Tmax 37.1. Max heart rate 105. White cell count down to 13.4 from 16.2. Wound culture is growing Staph aureus. Sensitivities pending.Creatinine 0.8. Plan: Day #2/7 vancomycin As stated above monitor creatinine and avoid nephrotoxic drugs. Trough will be tomorrow. Creatinine is improved in the face of vancomycin. No dose adjustment today for vancomycin. Qualifiers: Site of cellulitis: extremity Site of cellulitis of extremity: axilla (2) Abscess of left axilla Conclusion/Plan: In a patient who disrupted the skin by shaving. Most likely a follicle infection that has blossomed into abscess. This is in context of a person's immunocompromise with polysubstance abuse of methamphetamines, fentanyl, and alcohol. He is already undergone an incision and debridement in the emergency room. Wound was packed in the emergency room January 07. Today we have taken down the packing. There is no increase in drainage. It is just the surrounding cellulitis that is gotten worse. I discussed this with general surgery. They state that this is expected. The redness and induration will spread because of the anatomic area. As long as the patient is not clinically worse with fever, consistent tachycardia, elevated white cell count, no change needed at this time with regards to dressings or antibiotics. Plan: Packing will be removed daily and repacked with clean dressing. Vancomycin per pharmacy dosing. However I will check trough tomorrow. Creatinine is stable. Monitor vancomycin peak and trough and adjust dose as necessary Monitor creatinine daily to make sure vancomycin toxicity is not ensuing (3) Polysubstance abuse Conclusion/Plan: Fentanyl via inhalation, methamphetamine abuse in remission, as well as a history of alcoholism.Last use of methamphetamine a week ago. Last use of fentanyl today. Alcohol use is daily. Plan is treatment of infection as above. I will avoid opiates as much as possible. Focus on Tylenol, nonsteroidals, and occasional oral oxycodone. Urine toxicology positive for amphetamines and methamphetamines. Negative for other sources that we usually test for. I had ordered oxycodone for pain but he says that is not enough. He is asking for IV Dilaudid. Other than the tachycardia, he is not manifesting any signs or symptoms of withdrawal. I offered him a consultation with social work. To see if he is interested in any opportunities for staying clean. He says he is not interested at this time. Plan: Dilaudid half a milligram IV push once, just before dressing change. No other change in medication. (4) History of chlamydia infection Conclusion/Plan: He would like to be retested. He did not want to be tested last night and asked that if we could run the urine this morning. I have checked into the lab ordering history, and I did order it, but specimen is uncollected. I will speak to nursing over the lab about what is going on with this test
[2023-01-08] MEDS: CHOLECALCIFEROL 25 MCG TABLET PO SCH (16:23)
[2023-01-08] MEDS: PRENATAL VITAMIN TABLET PO SCH (16:24)
[2023-01-08 20:25] LABS: CHLAMYDIA TRACHOMATIS DNA NEGATIVE (NEGATIVE); NEISSERIA GONORRHOEAE DNA NEGATIVE (NEGATIVE); TRICHOMONAS VAGINALIS DNA NEGATIVE (NEGATIVE)
[2023-01-09] MEDS: SODIUM CHLORIDE FLUSH 0.9% 10 ML SYRINGE IVP SCH ×3 (02:26→16:15)
[2023-01-09] MEDS: oxyCODONE 5 MG TABLET PO PRN ×4 (02:26→21:30)
[2023-01-09] MEDS: VANCOMYCIN INJ 1 GM, VANCOMYCIN INJ 500 MG in SODIUM CHLORIDE 0.9% 500 ML IV SCH ×2 (03:51→16:15)
[2023-01-09] MEDS: IBUPROFEN 400 MG TABLET PO PRN ×2 (04:47→08:59)
[2023-01-09 05:57] LABS: BASOPHILS % (AUTO) 0.3 %; EOSINOPHILS # (AUTO) 0.4 10^3/uL (0.0-0.7); HCT - HEMATOCRIT 38.6 % (42.0-52.0); HGB - HEMOGLOBIN 12.2 g/dL (14.0-18.0); LYMPHOCYTES # (AUTO) 1.4 10^3/uL (1.5-3.5); LYMPHOCYTES % (AUTO) 14.6 %; MEAN CORPUSCULAR HGB CONC 31.6 g/dL (32.0-36.0); MEAN CORPUSCULAR VOLUME 94.8 fL (80.0-94.0); MEAN PLATELET VOLUME 9.5 fL (7.4-11.4); MONOCYTES % (AUTO) 9.7 %; NEUTROPHILS % (AUTO) 70.9 %; PLT - PLATELET COUNT 326 10^3/uL (130-450); RED BLOOD COUNT 4.07 10^6/uL (4.70-6.10); RED CELL DISTRIBUTION WIDTH 14.6 % (12.0-15.0); WHITE BLOOD COUNT 9.8 x10^3/uL (4.8-10.8)
[2023-01-09 06:25] LABS: ALBUMIN 3.1 g/dL (3.2-5.5); ALBUMIN/GLOBULIN RATIO 0.8 (1.0-2.2); BILIRUBIN,TOTAL 0.4 mg/dL (0.2-1.0); CALCIUM 8.9 mg/dL (8.5-10.3); CREATININE 0.8 mg/dL (0.6-1.2); CRP - C-REACTIVE PROTEIN 20.3 mg/dL (0-1.0); POTASSIUM 3.9 mmol/L (3.5-5.0); TOTAL PROTEIN 7.2 g/dL (6.7-8.2)
[2023-01-09] MEDS: LACTOBACILLUS RHAMNOSUS GG CAPSULE PO SCH (08:58)
[2023-01-09] MEDS: CHOLECALCIFEROL 25 MCG TABLET PO SCH (08:59)
[2023-01-09] MEDS: THIAMINE 100 MG TABLET PO SCH (08:59)
[2023-01-09] MEDS: PRENATAL VITAMIN TABLET PO SCH (08:59)
[2023-01-09] MEDS: ENOXAPARIN 40 MG/0.4 ML SYRINGE SUBQ SCH (09:00)
[2023-01-09] MEDS: HYDROmorphone 0.5 MG/0.5 ML SYRINGE IVP SCH (13:45)
[2023-01-09] MEDS: BUPRENORPHINE/NALOXONE 8-2 MG TAB SL SCH (14:27)
[2023-01-09] MEDS: ACETAMINOPHEN 325 MG TABLET PO PRN (16:14)
--- NOTE | 2023-01-09 16:29 | PROVIDER PROGRESS NOTE ---
Progress Note January 09, 2023 4:24 PM I saw him twice this morning. Both times he was in his room pacing the floors. Walking back between the bed, bathroom, then the window. Then circling around again. He says that the pain was very bothersome in his axilla. Was asking for some increasing opioids medicine. He is also asking for some sleep medicine. I am giving him Dilaudid half a milligram before dressing changes. I asked him if he feels like he is withdrawing and he says yes. But he is not hallucinating. He just feels like his skin is crawling all over and he feels an internal sense of agitation. He denies chest pain, palpitations, shortness of breath. Vitals: Temperature 36.5. Heart rate is 105. Blood pressure 149/96. This morning he was 155/110. Respirations 18. 98% on room air. Tall white male, looks stated age, disheveled. No acute respiratory distress. Shotty neck adenopathy but supple Completely clear lungs. No tachypnea, use of accessory muscles as he is pacing in the room Regular rate and rhythm with a tendency toward tachycardia at 105. 87 earlier. Blood pressure is hypertensive consistently so. Abdomen is soft, nontender Skin: I was not happy to see that the redness had extended beyond the marker site yesterday afternoon. This morning it is gratifying to see that it is well retracted. The redness and heat of the infected skin from his armpit going in the anterior pack and over the lateral bicep and back of tricep and over the shoulder and deltoid have all retracted. Well within the marker space. And shrinking rapidly. Axilla is packed with serous dry Kerlix. No oozing. No purulence. Lab: CMP is normal with electrolytes. AST is 61 (was 52 yesterday) ALT is 96 (was 84) C-reactive protein is 20.3. Yesterday it was 29.9. Nutrition services ordered a vitamin D level and I have reviewed that. He has low vitamin D at 27. White cell count is normal today. It is 9.8 and started at 16.2 on admission. So his infection is responding and showing a appropriate downward trend with his white cell count. Hemoglobin 12.2, platelets 08/08/2025. Blood cultures are without any growth for 2 days. Some no bacteremia Wound culture did grow out MRSA when the Staph aureus was identified for sensitivities - Problem List (1) Cellulitis Conclusion/Plan: On admission, elevated white cell count, tachycardia to 101, no fever. But source of infection being quite impressive with a huge abscess in his axilla and surrounding cellulitis.He has a history of MRSA infections.Creatinine 1.1. Over the course of January 08 and January 09 he is doing well. White cell count has come down, it is now normal. He has had no fever spike. Blood pressure is without hypotension. I would attribute the tachycardia more to withdrawal than 2 infection. Plan: Day #3/7 vancomycin As stated above monitor creatinine and avoid nephrotoxic drugs. Creatinine is improved in the face of vancomycin. No dose adjustment today for vancomycin. Qualifiers: Site of cellulitis: extremity Site of cellulitis of extremity: axilla (2) Abscess of left axilla Conclusion/Plan: In a patient who disrupted the skin by shaving. Most likely a follicle infection that has blossomed into abscess. This is in context of a person's immunocompromise with polysubstance abuse of methamphetamines, fentanyl, and alcohol. He is already undergone an incision and debridement in the emergency room. Wound was packed in the emergency room January 07. For the last 2 days have ordered the nurses to take out the packing, and repacked with clean packing after rinsing with sterile water. He is needed half a milligram of Dilaudid before each packing change. No recurrence of fluid accumulation. Cellulitis is improving. Plan: Packing will be removed daily and repacked with clean dressing. Vancomycin per pharmacy dosing. Creatinine is stable. Monitor vancomycin peak and trough and adjust dose as necessary Monitor creatinine daily to make sure vancomycin toxicity is not ensuing. Creatinine is stable. (3) Polysubstance abuse/withdrawal Conclusion/Plan: Fentanyl via inhalation, methamphetamine abuse in remission, as well as a history of alcoholism.Last use of methamphetamine a week ago. Last use of fentanyl today. Alcohol use is daily. I am avoiding opiates as much as possible. Focus on Tylenol, nonsteroidals, and occasional oral oxycodone. Urine toxicology positive for amphetamines and methamphetamines. Negative for other sources that we usually test for. I had ordered oxycodone for pain but he says that is not enough. He is asking for IV Dilaudid. I am giving that to him before each dressing change. Up until today, the only sign of withdrawal he could possibly see was tachycardia. Today he is pacing. He is not tremulous, he is not belligerent. But he is pacing [id number]. Using the clinical opioid withdrawal scale, he has 2 points for the pulse rate, 3 points for restlessness, one-point for joint aches. All of the ones are 0 points. Total score is 6. Mild withdrawal. I offered him a consultation with social work. To see if he is interested in any opportunities for staying clean. He says he is not interested at this time. Plan: Continue dilaudid half a milligram IV push once, just before dressing change. Add Suboxone 1 tablet to start now. Given daily. (4) History of chlamydia infection Conclusion/Plan: He wanted to be retested. As such as ordered urine, urine has come back negative for chlamydia and Neisseria. Patient is reassured.
[2023-01-10] MEDS: IBUPROFEN 400 MG TABLET PO PRN (00:09)
[2023-01-10] MEDS: SODIUM CHLORIDE FLUSH 0.9% 10 ML SYRINGE IVP SCH ×4 (00:10→23:32)
[2023-01-10] MEDS: VANCOMYCIN INJ 1 GM, VANCOMYCIN INJ 500 MG in SODIUM CHLORIDE 0.9% 500 ML IV SCH (04:13)
[2023-01-10 05:25] LABS: BASOPHILS # (AUTO) 0.1 10^3/uL (0.0-0.1); BASOPHILS % (AUTO) 0.6 %; EOSINOPHILS # (AUTO) 0.4 10^3/uL (0.0-0.7); EOSINOPHILS % (AUTO) 5.4 %; HCT - HEMATOCRIT 35.7 % (42.0-52.0); HGB - HEMOGLOBIN 11.3 g/dL (14.0-18.0); LYMPHOCYTES # (AUTO) 1.7 10^3/uL (1.5-3.5); LYMPHOCYTES % (AUTO) 20.9 %; MEAN CORPUSCULAR HEMOGLOBIN 29.7 pg (27.0-31.0); MEAN CORPUSCULAR HGB CONC 31.7 g/dL (32.0-36.0); MEAN CORPUSCULAR VOLUME 93.7 fL (80.0-94.0); MEAN PLATELET VOLUME 9.5 fL (7.4-11.4); MONOCYTES # (AUTO) 0.8 10^3/uL (0.0-1.0); MONOCYTES % (AUTO) 10.2 %; NEUTROPHILS % (AUTO) 61.2 %; PLT - PLATELET COUNT 372 10^3/uL (130-450); RED BLOOD COUNT 3.81 10^6/uL (4.70-6.10); RED CELL DISTRIBUTION WIDTH 14.7 % (12.0-15.0); WHITE BLOOD COUNT 8.1 x10^3/uL (4.8-10.8)
[2023-01-10 05:41] LABS: ALBUMIN 2.7 g/dL (3.2-5.5); ALBUMIN/GLOBULIN RATIO 0.7 (1.0-2.2); BILIRUBIN,TOTAL 0.4 mg/dL (0.2-1.0); CALCIUM 8.6 mg/dL (8.5-10.3); CREATININE 0.9 mg/dL (0.6-1.2); CRP - C-REACTIVE PROTEIN 12.1 mg/dL (0-1.0); TOTAL PROTEIN 6.6 g/dL (6.7-8.2)
[2023-01-10] MEDS: CHOLECALCIFEROL 25 MCG TABLET PO SCH (08:01)
[2023-01-10] MEDS: THIAMINE 100 MG TABLET PO SCH (08:01)
[2023-01-10] MEDS: oxyCODONE 5 MG TABLET PO PRN ×4 (08:01→23:32)
[2023-01-10] MEDS: PRENATAL VITAMIN TABLET PO SCH (08:01)
[2023-01-10] MEDS: LACTOBACILLUS RHAMNOSUS GG CAPSULE PO SCH (08:02)
[2023-01-10] MEDS: BUPRENORPHINE/NALOXONE 8-2 MG TAB SL SCH (08:03)
[2023-01-10] MEDS: ENOXAPARIN 40 MG/0.4 ML SYRINGE SUBQ SCH (08:03)
[2023-01-10] MEDS: HYDROmorphone 0.5 MG/0.5 ML SYRINGE IVP SCH (11:55)
--- NOTE | 2023-01-10 13:58 | PROVIDER PROGRESS NOTE ---
Progress Note January 10, 2023 2 PM He asked me this morning when I was going to "sew this up". I asked him what he meant and he is under the impression that the large incision and debridement would subsequently be sewn up once the infection was better. I explained to him that we usually do not close up incisions like this. We will leave them open and they heal by secondary intention. He will need daily dressing changes of only to clean out dirty bandages and put new ones in. He is very upset about this. I asked him who told him he was getting get sewn up and he said no one. He just assumed. He asked how long this will take to heal. My answer was anywhere from 4 to 8 weeks depending on how quickly he healed. He said this will "ruin my whole summer. Now it got a tell my mother". He does not tell me what that means. Pain is still present at the incision and he requires Dilaudid before dressing change. I am not giving him more than that. He is getting Tylenol and oxycodone as needed. Overnight there were no new changes or problems. He has been afebrile. The Suboxone is helping with withdrawal. He is not nearly as internally anxious as he was before. White cell count has been normal since January 09. He was admitted at 16.2 and is 8.1 today. Active Medications Acetaminophen (Acetaminophen 325 Mg Tablet) 650 mg PO Q4HR PRN PRN Reason: Pain 1 to 4, or Fever Last Admin: 01/09/23 16:14 Dose: 650 mg Buprenorphine HCl (Buprenorphine/Naloxone 8-2 Mg Tab) 1 tab SL DAILY [facility] Last Admin: 01/10/23 08:03 Dose: Not Given Cholecalciferol (Cholecalciferol 25 Mcg Tablet) 50 mcg PO DAILY [facility] Last Admin: 01/10/23 08:01 Dose: 50 mcg Enoxaparin Sodium (Enoxaparin 40 Mg/0.4 Ml Syringe) 40 mg SUBQ DAILY [facility] Last Admin: 01/10/23 08:03 Dose: Not Given Hydromorphone HCl (Hydromorphone 0.5 Mg/0.5 Ml Syringe) 0.5 mg IVP DAILY [facility] Last Admin: 01/10/23 11:55 Dose: Not Given Ibuprofen (Ibuprofen 400 Mg Tablet) 400 mg PO Q4HR PRN PRN Reason: Pain 1 to 4 Last Admin: 01/10/23 00:09 Dose: 400 mg Lactobacillus Rhamnosus (Lactobacillus Rhamnosus Gg Capsule) 1 cap PO DAILY [facility] Last Admin: 01/10/23 08:02 Dose: 1 cap Linezolid (Linezolid 600 Mg Tablet) 600 mg PO BID [facility] Ondansetron HCl (Ondansetron Odt 4 Mg Tablet) 4 mg TL Q6HR PRN PRN Reason: Nausea / Vomiting Ondansetron HCl (Ondansetron 4 Mg/2 Ml Vial) 4 mg IVP Q6HR PRN PRN Reason: Nausea / Vomiting Oxycodone HCl (Oxycodone 5 Mg Tablet) 5 mg PO Q4HR PRN PRN Reason: Pain 5 to 7 Last Admin: 01/10/23 12:04 Dose: 5 mg Multivit/Folic Acid/Iron ( Vitamin Tablet) 1 tab PO DAILYWM [facility] Last Admin: 01/10/23 08:01 Dose: 1 tab Sodium Chloride (Sodium Chloride Flush 0.9% 10 Ml Syringe) 10 ml IVP PRN PRN PRN Reason: NEEDED PER PROVIDER ORDERS Sodium Chloride (Sodium Chloride Flush 0.9% 10 Ml Syringe) 10 ml IVP 0100,0900,1700 [facility] Last Admin: 01/10/23 04:13 Dose: 10 ml Temazepam (Temazepam 15 Mg Capsule) 15 mg PO QPM PRN PRN Reason: Insomnia Thiamine HCl (Thiamine 100 Mg Tablet) 100 mg PO DAILY [facility] Last Admin: 01/10/23 08:01 Dose: 100 mg Vitals: Temperature 36.6, heart rate 72, blood pressure 136/98. Respirations 18. 97% on room air. He is a well-nourished well-developed white male who looks younger than stated age. Able to go from supine to sitting, sitting to standing, walk to the bathroom and back. Sit in a chair. Feed himself without any difficulty. In looking at his left axilla. Almost all of the redness and induration has completely resolved. There is minimal redness around the cyst opening. Wound is packed. He has full range of motion in that left shoulder. He can flex and extend at the elbow, pronate and supinate the forearm. There is no lymphangitic edema. Neck is supple Lungs are clear Regular rate and rhythm Lab: AST and ALT stay elevated. He is 60 and 92 respectively today. Not much change since admission. C-reactive protein started at 29.9 on admission and is 12.1 today. White cell count was 16.2 on admission and is 9.8 yesterday, 8.1 today. Blood cultures without growth after 2 days. Wound culture still as a final at MRSA. All of these are interpreted as being improvement in a patient who had near sepsis and SIRS criteria for severe soft tissue infection. - Problem List (1) Cellulitis Conclusion/Plan: On admission, elevated white cell count, tachycardia to 101, no fever. But source of infection being quite impressive with a huge abscess in his axilla and surrounding cellulitis.He has a history of MRSA infections.Creatinine 1.1. Between January 08 and today, he has had less and less induration. White cell count is normal since January 09. C-reactive protein is coming down. No fever. Tachycardia resolved. And I attributed the latter more to withdrawal than true true infection. Plan: Day #4/7 vancomycin I was going to check a vancomycin trough today. But since the patient has responded nicely to intravenous medication, I will now stop vancomycin and give him linezolid 600 mg p.o. twice daily.I will discontinue the trough. First dose tonight. I am also E scribing this to his pharmacist in [place]. I am asking them to let me know how much linezolid would cost him. I plan for least another 4 days after discharge. Qualifiers: Site of cellulitis: extremity Site of cellulitis of extremity: axilla (2) Abscess of left axilla Conclusion/Plan: In a patient who disrupted the skin by shaving. Most likely a follicle infection that has blossomed into abscess. This is in context of a person's immunocompromise with polysubstance abuse of methamphetamines, fentanyl, and alcohol. He is already undergone an incision and debridement in the emergency room. Wound was packed in the emergency room January 07. I have had nursing remove the packing on a daily basis, and replaced with clean packing after rinsing the wound with sterile water. No recurrence of fluid accumulation. By exam, cellulitis is almost completely resolved. Plan: Packing will be removed daily and repacked with clean dressing. I am having social work discussed with the patient what the plan is in the outpatient setting. Is this patient going to come back to the wound clinic and get dressing care there. Is he can to stay at home and change the wound dressing himself and follow-up with his primary care provider in a week. If he cannot do the packing himself who will help him? Vancomycin IV to stop today. Today is day 4. Linezolid to start. We will do another 4 days of linezolid. (3) Polysubstance abuse/withdrawal Conclusion/Plan: Fentanyl via inhalation, methamphetamine abuse in remission, as well as a history of alcoholism.Last use of methamphetamine a week ago. Last use of fentanyl today. Alcohol use is daily. I am avoiding opiates as much as possible. Focus on Tylenol, nonsteroidals, and occasional oral oxycodone. Urine toxicology positive for amphetamines and methamphetamines. Negative for other sources that we usually test for. I had ordered oxycodone for pain but he says that is not enough. He is asking for IV Dilaudid. I am giving that to him before each dressing change. Up until 01/09, the only sign of withdrawal I could see was tachycardia. 01/09 he is pacing. He was not tremulous, he was not belligerent. But he was pacing [id number]. Using the clinical opioid withdrawal scale, he had 2 points for the pulse rate, 3 points for restlessness, one-point for joint aches. All of the other ones are 0 points. Total score was 6. Mild withdrawal.I started Suboxone tablet 1 a day. Today he is scoring 0 points. I offered him a consultation with social work. To see if he is interested in any opportunities for staying clean. He says he is not interested at this time. Plan: Continue dilaudid half a milligram IV push once, just before dressing change. Continue Suboxone tablet once a day. (4) History of chlamydia infection Conclusion/Plan: He wanted to be retested. As such as ordered urine, urine has come back negative for chlamydia and Neisseria. Patient is reassured.
[2023-01-10] MEDS: ACETAMINOPHEN 325 MG TABLET PO PRN (16:27)
[2023-01-10] MEDS: cloNIDine 0.1 MG TABLET PO SCH ×2 (18:10→21:25)
[2023-01-10] MEDS: LINEZOLID 600 MG TABLET PO SCH (21:25)
[2023-01-10] MEDS: TEMAZEPAM 15 MG CAPSULE PO PRN (22:59)
[2023-01-11] MEDS ORDERED: DICLOFENAC SODIUM 1% GEL 50 GM TUBE TOP PRN (00:27)
[2023-01-11] MEDS: LIDOCAINE PATCH 5% TOP PRN ×2 (02:00→23:29)
[2023-01-11] MEDS: cloNIDine 0.1 MG TABLET PO SCH ×4 (05:33→21:58)
[2023-01-11] MEDS: oxyCODONE 5 MG TABLET PO PRN ×2 (05:48→22:04)
[2023-01-11 05:55] LABS: BASOPHILS # (AUTO) 0.1 10^3/uL (0.0-0.1); BASOPHILS % (AUTO) 0.8 %; EOSINOPHILS # (AUTO) 0.5 10^3/uL (0.0-0.7); EOSINOPHILS % (AUTO) 5.1 %; HCT - HEMATOCRIT 39.4 % (42.0-52.0); HGB - HEMOGLOBIN 12.7 g/dL (14.0-18.0); LYMPHOCYTES % (AUTO) 21.1 %; MEAN CORPUSCULAR HEMOGLOBIN 29.2 pg (27.0-31.0); MEAN CORPUSCULAR HGB CONC 32.2 g/dL (32.0-36.0); MEAN CORPUSCULAR VOLUME 90.6 fL (80.0-94.0); MEAN PLATELET VOLUME 9.4 fL (7.4-11.4); MONOCYTES # (AUTO) 0.9 10^3/uL (0.0-1.0); MONOCYTES % (AUTO) 9.1 %; NEUTROPHILS # (AUTO) 5.6 10^3/uL (1.5-6.6); PLT - PLATELET COUNT 438 10^3/uL (130-450); RED BLOOD COUNT 4.35 10^6/uL (4.70-6.10); RED CELL DISTRIBUTION WIDTH 14.4 % (12.0-15.0); WHITE BLOOD COUNT 9.3 x10^3/uL (4.8-10.8)
[2023-01-11 06:08] LABS: ALBUMIN/GLOBULIN RATIO 0.7 (1.0-2.2); BILIRUBIN,TOTAL 0.4 mg/dL (0.2-1.0); CALCIUM 9.3 mg/dL (8.5-10.3); CRP - C-REACTIVE PROTEIN 7.7 mg/dL (0-1.0); POTASSIUM 3.8 mmol/L (3.5-5.0); TOTAL PROTEIN 7.2 g/dL (6.7-8.2)
[2023-01-11] MEDS: LACTOBACILLUS RHAMNOSUS GG CAPSULE PO SCH (08:13)
[2023-01-11] MEDS: PRENATAL VITAMIN TABLET PO SCH (08:13)
[2023-01-11] MEDS: LINEZOLID 600 MG TABLET PO SCH ×2 (08:13→20:36)
[2023-01-11] MEDS: THIAMINE 100 MG TABLET PO SCH (08:13)
[2023-01-11] MEDS: CHOLECALCIFEROL 25 MCG TABLET PO SCH (08:13)
[2023-01-11] MEDS: BUPRENORPHINE/NALOXONE 8-2 MG TAB SL SCH (08:13)
[2023-01-11] MEDS: ENOXAPARIN 40 MG/0.4 ML SYRINGE SUBQ SCH (08:14)
[2023-01-11] MEDS: SODIUM CHLORIDE FLUSH 0.9% 10 ML SYRINGE IVP SCH ×4 (08:15→23:30)
[2023-01-11] MEDS ORDERED: LORazepam 2 MG/ML VIAL IVP STA (09:01)
[2023-01-11] MEDS: HYDROmorphone 0.5 MG/0.5 ML SYRINGE IVP SCH (17:30)
--- NOTE | 2023-01-11 19:17 | PROVIDER PROGRESS NOTE ---
Progress Note January 11, 2023 7:13 PM I saw this patient at 7 in the morning and he was up, says he did not feel well. An internal sense of agitation. By 9 in the morning he was pacing in the room. When I could get him to sit down on the bed he would rock back and forth. He kept on saying "I need something, I need something". He specifically asked for Ativan. Stated that he was going through withdrawal.There is no yawning. Pupils were not dilated or pinpoint. I gave him Ativan 2 mg at 9 AM. I then started Ativan 0.5 mg every 2 hours as needed. I rechecked on him at 12:30 PM and he was asleep. Snoring in bed. He has not required any more Ativan since that initial 2 mg at 9:00. Vitals: Temperature 36.8, blood pressure 151/98. Heart rate 78. Respirations 19. 98% on room air A disheveled white male who looks stated age, well-nourished well-developed. Able to ambulate in the room without any assist, ataxia. Shotty neck adenopathy Lungs are clear Regular rate and rhythm Cellulitis in the skin of the upper outer quadrant of his chest wall, in front of his axilla, over the deltoid has resolved. He is just left now with the abscess that is being packed. Labs: CMP shows a normal potassium, normal BUN, normal creatinine. AST and ALT continue to be minimally elevated and stable from admission. C-reactive protein started at 29.9 and is now 7.7 today. CBC has a normal white cell count since January 09. Today's white cell count is 9.3. Hemoglobin 12.7. Platelets 438. Wound culture continues to show MRSA Blood cultures are negative with growth after 48 hours - Problem List (1) withdrawal Conclusion/Plan: Per his history, his abuse is Fentanyl via inhalation, methamphetamine abuse Via inhalation, as well as a history of alcoholism.Last use of methamphetamine a week ago. Last use of fentanyl today. Alcohol use is daily. I have been avoiding opiates as much as possible. Focus on Tylenol, nonsteroidals, and occasional oral oxycodone. Urine toxicology positive for amphetamines and methamphetamines. Negative for other sources that we usually test for. I had ordered oxycodone for pain but he says that is not enough. He is asking for IV Dilaudid. I am giving that to him before each dressing change. Up until 01/09, the only sign of withdrawal I could see was tachycardia. 01/09 he is pacing. He was not tremulous, he was not belligerent. But he was pacing [id number]. Using the clinical opioid withdrawal scale, he had 2 points for the pulse rate, 3 points for restlessness, one-point for joint aches. All of the other ones are 0 points. Total score was 6. Mild withdrawal. I started Suboxone tablet 1 a day. Then on January 09 he was scoring 0 points. Today agitated tachycardic. 1 dose of Ativan 2 mg IV push has knocked him out. He has not needed any more doses. I am hoping that I can still have him discharged tomorrow. (2) Cellulitis resolved Conclusion/Plan: On admission, elevated white cell count, tachycardia to 101, no fever. But source of infection being quite impressive with a huge abscess in his axilla and surrounding cellulitis.He has a history of MRSA infections.Creatinine 1.1. Between January 08 and today, Induration and redness gradually improved. Today there is none.. White cell count is normal since January 09. C-reactive protein is coming down. No fever. Tachycardia resolved. And I attributed the latter more to withdrawal than true true infection. Plan: s/p Day #4/7 vancomycin and now on linezolid Day #2 I stopped vancomycin January 10 and started linezolid. So far cellulitis is staying abated, no temperature spike, and white cell count is staying down. I had sent a prescription to the pharmacy to find out how much cost. They have not called me back. Qualifiers: Site of cellulitis: extremity Site of cellulitis of extremity: axilla (3) Abscess of left axilla Conclusion/Plan: In a patient who disrupted the skin by shaving. Most likely a follicle infecti on that has blossomed into abscess. This is in context of a person's immunocompromise with polysubstance abuse of methamphetamines, fentanyl, and alcohol. He is already undergone an incision and debridement in the emergency room. Wound was packed in the emergency room January 07. I have had nursing remove the packing on a daily basis, and replaced with clean packing after rinsing the wound with sterile water. No recurrence of fluid accumulation. By exam, cellulitis is almost completely resolved. Plan: Packing will be removed daily and repacked with clean dressing. I am having social work discussed with the patient what the plan is in the outpatient setting.He really does not have 1. He has been vague for the last 2 days about who is going to help him. Is this patient going to come back to the wound clinic and get dressing care there? Is he can to stay at home and change the wound dressing himself and follow-up with his primary care provider in a week. If he cannot do the packing himself who will help him? Plan for 4 more days of linezolid after stopping the bank. Today is day 2 of 4 for the linezolid. Plan: Continue dilaudid half a milligram IV push once, just before dressing change. Continue Suboxone tablet once a day. (4) History of chlamydia infection Conclusion/Plan: He wanted to be retested. As such as ordered urine, urine has come back negative for chlamydia and Neisseria. Patient is reassured.
[2023-01-11] MEDS: TEMAZEPAM 15 MG CAPSULE PO PRN (22:04)
[2023-01-11] MEDS: LORazepam 2 MG/ML VIAL IVP PRN (23:30)
[2023-01-12] MEDS: LORazepam 2 MG/ML VIAL IVP PRN ×3 (01:38→05:57)
[2023-01-12] MEDS: SODIUM CHLORIDE FLUSH 0.9% 10 ML SYRINGE IVP PRN ×2 (01:38→03:46)
[2023-01-12] MEDS: cloNIDine 0.1 MG TABLET PO SCH ×3 (05:57→21:30)
[2023-01-12] MEDS: oxyCODONE 5 MG TABLET PO PRN ×2 (05:57→19:20)
[2023-01-12 06:12] LABS: EOSINOPHILS % (AUTO) 3.9 %; HCT - HEMATOCRIT 41.8 % (42.0-52.0); HGB - HEMOGLOBIN 13.6 g/dL (14.0-18.0); LYMPHOCYTES % (AUTO) 24.3 %; MEAN CORPUSCULAR HEMOGLOBIN 29.1 pg (27.0-31.0); MEAN CORPUSCULAR HGB CONC 32.5 g/dL (32.0-36.0); MEAN CORPUSCULAR VOLUME 89.5 fL (80.0-94.0); MEAN PLATELET VOLUME 9.4 fL (7.4-11.4); MONOCYTES % (AUTO) 10.1 %; NEUTROPHILS % (AUTO) 55.6 %; PLT - PLATELET COUNT 492 10^3/uL (130-450); RED BLOOD COUNT 4.67 10^6/uL (4.70-6.10); RED CELL DISTRIBUTION WIDTH 14.6 % (12.0-15.0); WHITE BLOOD COUNT 9.8 x10^3/uL (4.8-10.8)
[2023-01-12 06:18] LABS: ABNORMAL LYMPHS % (MANUAL) 0 %
[2023-01-12 06:30] LABS: BAND NEUTROPHILS % (MANUAL) 1 %; DIFFERENTIAL COMMENT MANUAL DIFFERENTIAL; EOSINOPHILS # (MANUAL) 0.2 10^3/uL (0-0.7); LYMPHOCYTES % (MANUAL) 31 %; MONOCYTES # (MANUAL) 0.7 10^3/uL (0.0-1.0); MYELOCYTES % (MANUAL) 6 %; NEUTROPHILS # (MANUAL) 5.3 10^3/uL (1.5-6.6); PLATELET ESTIMATE, MANUAL INCREASED (>450,000) (NORMAL); PLATELET MORPHOLOGY NORMAL APPEARANCE (NORMAL); RBC MORPHOLOGY (MULTIPLE) NORMAL APPEARANCE (NORMAL); WBC MORPHOLOGY (MULTIPLE) NORMAL APPEARANCE (NORMAL)
[2023-01-12 06:36] LABS: ALBUMIN 3.2 g/dL (3.2-5.5); ALBUMIN/GLOBULIN RATIO 0.8 (1.0-2.2); BILIRUBIN,TOTAL 0.3 mg/dL (0.2-1.0); CALCIUM 9.4 mg/dL (8.5-10.3); CREATININE 0.9 mg/dL (0.6-1.2); CRP - C-REACTIVE PROTEIN 4.8 mg/dL (0-1.0); POTASSIUM 3.9 mmol/L (3.5-5.0); TOTAL PROTEIN 7.4 g/dL (6.7-8.2)
[2023-01-12] MEDS: CHOLECALCIFEROL 25 MCG TABLET PO SCH (09:17)
[2023-01-12] MEDS: THIAMINE 100 MG TABLET PO SCH (09:17)
[2023-01-12] MEDS: LINEZOLID 600 MG TABLET PO SCH ×2 (09:17→21:29)
[2023-01-12] MEDS: PRENATAL VITAMIN TABLET PO SCH (09:17)
[2023-01-12] MEDS: BUPRENORPHINE/NALOXONE 8-2 MG TAB SL SCH (09:17)
[2023-01-12] MEDS: LACTOBACILLUS RHAMNOSUS GG CAPSULE PO SCH (09:18)
[2023-01-12] MEDS: SODIUM CHLORIDE FLUSH 0.9% 10 ML SYRINGE IVP SCH ×2 (09:18→21:29)
[2023-01-12] MEDS: ENOXAPARIN 40 MG/0.4 ML SYRINGE SUBQ SCH (09:18)
[2023-01-12] MEDS: ACETAMINOPHEN 325 MG TABLET PO PRN (14:10)
[2023-01-12] MEDS: HYDROmorphone 0.5 MG/0.5 ML SYRINGE IVP SCH (14:11)
--- NOTE | 2023-01-12 17:52 | PROVIDER PROGRESS NOTE ---
Progress Note January 12, 2023 5:30 PM Yesterday morning severe agitation, pacing, and going through withdrawal. I gave him 2 mg of Ativan. Checked on him a couple of times after that and he was asleep most of the day. He never needed the Q to our as needed Ativan. Then last night he needed a dose of the as needed Ativan. Today he has been relatively quiet. Not agitated. I had already started him on clonidine for hypertensive response with withdrawal. Vitals: Temperature 36.7, heart rate 89, blood pressure 131/88. An improvement in her blood pressure that was as high as 150/117 yesterday. Respirations 16. 97% on room air Neck is supple with shotty adenopathy His cellulitis is completely resolved. I am now left with a skin defect in his axilla from the incision and debridement. Even in the short time he has been with this the cavity has slowly started filling in on its own. There is no induration, redness, heat. He has some limited range of motion and trying to lift up his arm because it hurts when he goes above 90 degrees on abduction of the arm at the shoulder. Lungs are clear Regular rate and rhythm. No tachycardia Abdomen is soft, nontender, normal bowel sounds Skin is warm and dry. There is no diaphoresis. Neurologically oriented to person place and situation. Poor insight into his drug abuse. Currently not agitated. CMP shows improving liver enzymes. For the first time his AST is normal at 36. His ALT is down to 79 where the peak was 96. C-reactive protein started at 29.9 and is come down to 4.8 today. White cell count started at 16.2. It was normal by January 09 at 9.8. Today it is 9.8. He does have reactive thrombocytosis at 492. Wound cultures have not changed. It is still MRSA. Blood cultures have no growth after 5 days - Problem List (1) Cellulitis Conclusion/Plan: On admission, elevated white cell count, tachycardia to 101, no fever. But rishi rce of infection being quite impressive with a huge abscess in his axilla and surrounding cellulitis.He has a history of MRSA infections.Creatinine 1.1. Between January 08 and And he has had less and less induration. Today there is no induration present. White cell count is normal since January 09. C-reactive protein is coming down and is 4.8 today. No fever. Tachycardia resolved. And I attributed the latter more to withdrawal than true true infection. Plan: He completed 4 days of vancomycin. I then started him on linezolid last night. I sent a prescription to his pharmacy asking how much it was going to cost him. 3 days later they finally responded and said they do not carry this antibiotic. They need me to send it to [facility] in [place]. Today is day 5/7 of antibiotics. I would think he would need 2-3 more days in the outpatient setting. The patient is still in the hospital not because of his abscess and cellulitis. He would have gone home today. However problem #3 has come to the forefront. Some withdrawal yesterday, some withdrawal last night. Qualifiers: Site of cellulitis: extremity Site of cellulitis of extremity: axilla (2) Abscess of left axilla Conclusion/Plan: In a patient who disrupted the skin by shaving. Most likely a follicle infection that has blossomed into abscess. This is in context of a person's immunocompromise with polysubstance abuse of methamphetamines, fentanyl, and alcohol. He is already undergone an incision and debridement in the emergency room. Wound was packed in the emergency room January 07. I have had nursing remove the packing on a daily basis, and replaced with clean packing after rinsing the wound with sterile water. No recurrence of fluid accumulation. By exam, cellulitisHas resolved. What is remaining is healing by secondary intention of the axillary wound. Today's exam shows that it is already substantially closed in comparison to admission. Plan: I told the patient that he needs to pack the wound on a daily basis. He needs to remove the old dressing, put in new dressing, and then cover it with Kerlix and tape. He needs to keep it clean and dry. Every day he should wash it simply with soap and water. Dry it very well. Even if he has to have a blow dryer to dry it with. He will need to do that until the wound is small enough that it no longer needs packing and then he can just put Kerlix on top of that. Wound clinic cannot see him for 2 weeks. If he follows these instructions, this wound will most likely heal by then. I have asked nursing and discharge planning to make sure that the mom is aware that she may need to help him with his dressing. (3) Polysubstance abuse/withdrawal Conclusion/Plan: Fentanyl via inhalation, methamphetamine abuse in remission, as well as a history of alcoholism.Last use of methamphetamine a week ago. Last use of fentanyl today. Alcohol use is daily. I am avoiding opiates as much as possible. Focus on Tylenol, nonsteroidals, and occasional oral oxycodone. Urine toxicology positive for amphetamines and methamphetamines. Negative for other sources that we usually test for. I had ordered oxycodone for pain but he says that is not enough. He is asking for IV Dilaudid. I am giving that to him before each dressing change. Up until 01/09, the only sign of withdrawal I could see was tachycardia. 01/09 he is pacing. He was not tremulous, he was not belligerent. But he was pacing [id number]. Using the clinical opioid withdrawal scale, he had 2 points for the pulse rate, 3 points for restlessness, one-point for joint aches. All of the other ones are 0 points. Total score was 6. Mild withdrawal. I started Suboxone tablet 1 a day. In spite of the Suboxone, and as needed oxycodone, he then had significant pacing and agitation January 11. Did well with 1 dose of Ativan. In the evening of January 11 was agitated again. I am ordering a dose of Ativan 2 mg at 9:00 tonight. I am hoping to prevent escalation in the evening. 1 dose of 2 mg of Ativan seems to work very well for him for at least 12 hours. Because of the evidence of withdrawal, I am not discharging him home yet. I offered him a consultation with social work. To see if he is interested in any opportunities for staying clean. He says he is not interested at this time. Plan: Continue dilaudid half a milligram IV push once, just before dressing change. Continue Suboxone tablet once a day. Ativan 2 mg tonight at 9:00 and continue Ativan half a milligram every 2 hours as needed For hypertension I also started clonidine 0.3 twice daily (4) History of chlamydia infection Conclusion/Plan: He wanted to be retested. As such as ordered urine, urine has come back negative for chlamydia and Neisseria. Patient is reassured.
[2023-01-12] MEDS ORDERED: LORazepam 2 MG/ML VIAL IVP ONE (21:00)
[2023-01-13] MEDS: LORazepam 2 MG/ML VIAL IVP PRN ×2 (00:49→03:21)
[2023-01-13] MEDS: SODIUM CHLORIDE FLUSH 0.9% 10 ML SYRINGE IVP SCH ×2 (00:49→08:27)
[2023-01-13] MEDS: oxyCODONE 5 MG TABLET PO PRN ×3 (01:56→13:58)
[2023-01-13] MEDS: SODIUM CHLORIDE FLUSH 0.9% 10 ML SYRINGE IVP PRN (03:22)
[2023-01-13] MEDS: cloNIDine 0.1 MG TABLET PO SCH ×2 (06:55→13:38)
[2023-01-13] MEDS: THIAMINE 100 MG TABLET PO SCH (08:26)
[2023-01-13] MEDS: PRENATAL VITAMIN TABLET PO SCH (08:26)
[2023-01-13] MEDS: LINEZOLID 600 MG TABLET PO SCH (08:26)
[2023-01-13] MEDS: BUPRENORPHINE/NALOXONE 8-2 MG TAB SL SCH (08:26)
[2023-01-13] MEDS: CHOLECALCIFEROL 25 MCG TABLET PO SCH (08:26)
[2023-01-13] MEDS: ENOXAPARIN 40 MG/0.4 ML SYRINGE SUBQ SCH (08:26)
[2023-01-13] MEDS: LACTOBACILLUS RHAMNOSUS GG CAPSULE PO SCH (08:26)
[2023-01-13 09:12] LABS: BASOPHILS % (AUTO) 1.1 %; EOSINOPHILS % (AUTO) 4.3 %; HCT - HEMATOCRIT 44.7 % (42.0-52.0); HGB - HEMOGLOBIN 14.3 g/dL (14.0-18.0); LYMPHOCYTES % (AUTO) 27.4 %; MEAN CORPUSCULAR HEMOGLOBIN 29.1 pg (27.0-31.0); MEAN CORPUSCULAR VOLUME 90.9 fL (80.0-94.0); MEAN PLATELET VOLUME 8.9 fL (7.4-11.4); MONOCYTES % (AUTO) 7.3 %; NEUTROPHILS % (AUTO) 52.6 %; PLT - PLATELET COUNT 493 10^3/uL (130-450); RED BLOOD COUNT 4.92 10^6/uL (4.70-6.10); RED CELL DISTRIBUTION WIDTH 14.8 % (12.0-15.0); WHITE BLOOD COUNT 8.2 x10^3/uL (4.8-10.8)
[2023-01-13 09:15] LABS: SLIDE REVIEW? Indicated
[2023-01-13 09:39] LABS: ALBUMIN 3.4 g/dL (3.2-5.5); ALBUMIN/GLOBULIN RATIO 0.8 (1.0-2.2); BILIRUBIN,TOTAL 0.3 mg/dL (0.2-1.0); CALCIUM 9.1 mg/dL (8.5-10.3); TOTAL PROTEIN 7.5 g/dL (6.7-8.2)
[2023-01-13 09:50] LABS: ABNORMAL LYMPHS % (MANUAL) 0 %
[2023-01-13 10:16] LABS: BAND NEUTROPHILS % (MANUAL) 2 %; BASOPHILS # (MANUAL) 0.1 10^3/uL (0-0.1); BASOPHILS % (MANUAL) 1 %; DIFFERENTIAL COMMENT MANUAL DIFFERENTIAL; EOSINOPHILS # (MANUAL) 0.6 10^3/uL (0-0.7); LYMPHOCYTES # (MANUAL) 2.1 10^3/uL (1.5-3.5); LYMPHOCYTES % (MANUAL) 25 %; METAMYELOCYTES % (MANUAL) 1 %; MONOCYTES # (MANUAL) 0.3 10^3/uL (0.0-1.0); NEUTROPHILS # (MANUAL) 5.1 10^3/uL (1.5-6.6); PLATELET ESTIMATE, MANUAL NORMAL (130-450,000) (NORMAL); PLATELET MORPHOLOGY NORMAL APPEARANCE (NORMAL); RBC MORPHOLOGY (MULTIPLE) NORMAL APPEARANCE (NORMAL)
[2023-01-13] MEDS: HYDROmorphone 0.5 MG/0.5 ML SYRINGE IVP SCH (10:57)
--- NOTE | 2023-01-13 11:18 | Discharge Plan ---
Discharge Plan Problem Reviewed?: Yes Disposition: Home, Self Care Condition: Fair Prescriptions: Linezolid [Zyvox] 600 mg PO BID #8 tablet Diet: Regular Activity Restrictions: Activity as Tolerated Shower Restrictions: No Driving Restrictions: No Health Concerns: wound care Plan of Treatment: you really request to be discharged on today. Wound care had a new Aquacel dressing for you. You need to pack the wound once per every 4 days basis. You needs to remove the old dressing, put in new dressing, and then cover it with Kerlix and tape. You needs to keep it clean and dry. You may need continuing wound packing until the drainage is small enough with no longer needs packing and then You can just put Kerlix on top of that. Wound clinic cannot see you until 2 weeks. You are scheduled to follow up with your PCP on tomorrow 01/14/23 and follow up with your PCP office for wound care as well. We will call your PCP office on tomorrow. You state you also prefer to do wound packing on urgent care as another option as well. You are prescribed antibiotics and pain medication for continuing care as well. Care Goals: wound healed Assessment: pt's wound is assessed on today Additional Instructions or Follow Up instructions: followup with your PCP on tomorrow 01/14/23 Follow-Up Care: [facility] - Wound/Ostomy No Smoking: If you smoke, Please STOP! Call for help. Follow-up with: Meche Meyer MD [Provider Admit Priv/Credential] -
--- NOTE | 2023-01-13 14:41 | Discharge Plan ---
Discharge Plan Problem Reviewed?: Yes Disposition: Home, Self Care Condition: Fair Prescriptions: cloNIDine [Catapres] 0.1 mg PO BID #60 tab oxyCODONE [Roxicodone] 5 mg PO Q4-6H PRN #20 tablet PRN Reason: Pain 5-7 Thiamine [Vitamin B-1] 100 mg PO DAILY #30 tab Cholecalciferol [Vitamin D3] 50 mcg PO DAILY #30 tab Linezolid [Zyvox] 600 mg PO BID #8 tablet Activity Restrictions: Activity as Tolerated Driving Restrictions: No Health Concerns: wound care Plan of Treatment: you request to be discharged on today. Wound care recommended for you: Every 3-4 days cleanse wound with NS and pat dry. Tuck Ag hydrofiber into cavity using a cotton tipped applicator to fill, not pack wound. Cover with gauze or foam for absorbency and secure with paper tape or roll gauze. May change outer dressing as it becomes soiled or dislodged, leaving packing strip in place and changing only the outer layer. Wound clinic cannot see you until 2 weeks. You are scheduled to follow up with your PCP on tomorrow 01/14/23 and follow up with your PCP office for wound care as well. We will call your PCP office on tomorrow. You state you also prefer to do wound packing on urgent care as another option as well. You are prescribed antibiotics and pain medication for continuing care as well. Care Goals: wound healed Assessment: pt's wound is assessed on today Additional Instructions or Follow Up instructions: followup with your PCP on tomorrow 01/14/23 Follow-Up Care: [facility] - Wound/Ostomy No Smoking: If you smoke, Please STOP! Call for help. Follow-up with: Meche Meyer MD [Provider Admit Priv/Credential] -
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
[2023-01-13] MEDS ORDERED: HYDROmorphone 0.5 MG/0.5 ML SYRINGE IVP ONE (15:00)
[2023-01-13 15:48] VITALS: BP 127/80
== END 2023-01-13 15:45 | disposition home or self-care (01) | DRG 603 ==
LOC: ED 12:42 → MS2 15:29
PROVIDERS: ADMIT Specialist; ATTEND Nurse Practitioner Gerontology
DX: L03.112 Cellulitis of left axilla (principal); F19.139 Other psychoactive substance abuse with withdrawal, unspecified; L02.412 Cutaneous abscess of left axilla; Z86.14 Personal history of Methicillin resistant Staphylococcus aureus infection; Z87.891 Personal history of nicotine dependence; F15.10 Other stimulant abuse, uncomplicated; F11.10 Opioid abuse, uncomplicated; F12.10 Cannabis abuse, uncomplicated; B95.62 Methicillin resistant Staphylococcus aureus infection as the cause of diseases classified elsewhere; Z86.19 Personal history of other infectious and parasitic diseases; F10.20 Alcohol dependence, uncomplicated; R00.0 Tachycardia, unspecified
CPT/HCPCS: 10061; 36415; 80048; 80053; 80306; 82306; 85025; 86140; 87040; 87070; 87181; 87205; 87491; 87591; 87640; 87661; 96374; 96375; 99152; 99284; 99285; A9270; J1170; J2060; J3370; 80202; 94770

== ENCOUNTER 2023-02-13 18:31 | Outpatient (CLI) | payer MEDICAID | END 2023-02-13 23:59 | disposition critical access hospital (66) | LOC: EMS 18:31 | DX: T40.411A Poisoning by fentanyl or fentanyl analogs, accidental (unintentional), initial encounter (principal); R45.1 Restlessness and agitation; Z78.1 Physical restraint status | CPT/HCPCS: A0425; A0427; A0999 ==

== ENCOUNTER 2023-02-13 19:03 | Observation (INO) | payer MEDICAID ==
[2023-02-13] MEDS ORDERED: KETAMINE 500 MG/10 ML VIAL IVP STA (19:10)
[2023-02-13] MEDS ORDERED: LORazepam 2 MG/ML VIAL IVP STA (19:11)
[2023-02-13] MEDS ORDERED: HALOPERIDOL 5 MG/ML VIAL IVP STA (19:11)
--- NOTE | 2023-02-13 19:14 | ED Physician Documentation ---
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 Was administered Narcan 3 times and is now very agitated and brought in by EMS in restraints. Patient unable to give any history due to severe agitation. PD PAST MEDICAL HISTORY - Past Medical History Cardiovascular: None Respiratory: None Neuro: None Endocrine/Autoimmune: None GI: None : None HEENT: None Psych: Other Musculoskeletal: Chronic back pain (But recently that has improved tremendously) Derm: None - Past Surgical History Past Surgical History: No - Present Medications Home Medications: Ambulatory Orders Medication Instructions Recorded Confirmed Linezolid [Zyvox] 600 mg PO BID #8 tablet 01/10/23 Cholecalciferol [Vitamin D3] 50 mcg PO DAILY #30 tab 01/13/23 Linezolid [Zyvox] 600 mg PO BID tab 01/13/23 Thiamine [Vitamin B-1] 100 mg PO DAILY #30 tab 01/13/23 cloNIDine [Catapres] 0.1 mg PO BID #60 tab 01/13/23 oxyCODONE [Roxicodone] 5 mg PO Q4-6H PRN #20 tablet 01/13/23 - Allergies Allergies/Adverse Reactions: Allergies Allergy/AdvReac Type Severity Reaction Status Date / Time No Known Drug Allergies Allergy Verified 01/07/23 12:56 - Social History Does the pt smoke?: No Smoking Status: Never smoker Does the pt drink ETOH?: Yes Does the pt have substance abuse?: Yes - Immunizations Immunizations are current?: Yes Immunizations: TDAP >10years/unknown - POLST Patient has POLST: No PD ED PE NORMAL - Vitals Vital signs reviewed: Yes - General General: Other (He is agitated, screaming, not making any sense. He smells of methamphetamines. We are unable to verbally de-escalate him and he is wearing a spit mask and fighting staff.) - Neck Neck: Supple, no meningeal sign, No bony TTP - Cardiac Cardiac: RRR, No murmur - Respiratory Respiratory: No respiratory distress, Clear bilaterally - Abdomen Abdomen: Non tender - Neuro Eye Opening: Spontaneous Motor: Localizes to Pain Verbal: Incomprehensible GCS Score: 11 Results - Vitals Vitals: Vital Signs - 24 hr 02/13/23 02/13/23 02/13/23 19:35 19:50 20:45 Temperature 38.0 C H 37.6 C Heart Rate 124 H 117 H 106 H Respiratory 30 H 21 Rate Blood Pressure 186/105 H 152/100 H O2 Saturation 100 97 02/13/23 02/13/23 02/13/23 20:46 20:50 20:51 Temperature Heart Rate 109 H 106 H 107 H Respiratory 20 20 20 Rate Blood Pressure 140/73 H 138/73 H 128/79 O2 Saturation 100 100 100 Oxygen O2 Source Room air - EKG (time done) 1936 EKG releavant findings:: EKG personally interpreted by author of this note. Relevant findings are: Rate: Rate (enter#) (119) Rhythm: Sinus tachycardia, LAE [place]: Normal Intervals: Normal ME, Prolonged QT (borderline at 494) QRS: Normal Ischemia: Normal ST segments - Labs Labs: Laboratory Tests 02/13/23 02/13/23 02/13/23 19:24 19:24 19:30 WBC 8.0 RBC 4.83 Hgb 14.3 Hct 44.7 MCV 92.5 MCH 29.6 MCHC 32.0 RDW 14.7 Plt Count 372 MPV 9.3 Neut # (Auto) 4.6 Lymph # (Auto) 2.4 [place] # (Auto) 0.6 Eos # (Auto) 0.2 Baso # (Auto) 0.1 Absolute Nucleated RBC 0.00 Nucleated RBC % 0.0 Sodium 142 Potassium 3.7 Chloride 105 Carbon Dioxide 26 Anion Gap 11.0 BUN 19 Creatinine 1.0 Estimated GFR (MDRD) 80 L Glucose 126 H Calcium 9.3 Magnesium 2.5 Total Bilirubin 0.3 AST 194 H ALT 162 H Alkaline Phosphatase 113 Total Creatine Kinase 402 H Total Protein 8.0 Albumin 4.5 Globulin 3.5 Albumin/Globulin Ratio 1.3 Lipase 36 TSH 4.47 Urine Color Urine Clarity Urine pH Ur Specific [place] Urine Protein Urine Glucose (UA) Urine Ketones Urine Occult Blood Urine Nitrite Urine Bilirubin Urine Urobilinogen Ur Leukocyte Esterase Urine RBC Urine WBC Ur Squamous Epith Cells Urine Bacteria Ur Microscopic Review Urine Culture Comments Salicylates < 1.5 Urine Opiates Screen Ur Oxycodone Screen Urine Methadone Screen Ur Propoxyphene Screen Acetaminophen 0.1 Ur Barbiturates Screen Ur Tricyclics Screen Ur Phencyclidine Scrn Ur Amphetamine Screen U Methamphetamines Scrn U Benzodiazepines Scrn Urine Cocaine Screen U Cannabinoids Screen Ethyl Alcohol 126.1 SARS-CoV-2 (PCR) NOT DETECTED 02/13/23 19:30 WBC RBC Hgb Hct MCV MCH MCHC RDW Plt Count MPV Neut # (Auto) Lymph # (Auto) [place] # (Auto) Eos # (Auto) Baso # (Auto) Absolute Nucleated RBC Nucleated RBC % Sodium Potassium Chloride Carbon Dioxide Anion Gap BUN Creatinine Estimated GFR (MDRD) Glucose Calcium Magnesium Total Bilirubin AST ALT Alkaline Phosphatase Total Creatine Kinase Total Protein Albumin Globulin Albumin/Globulin Ratio Lipase TSH Urine Color YELLOW Urine Clarity CLEAR Urine pH 6.5 Ur Specific [place] 1.020 Urine Protein 100 H Urine Glucose (UA) NEGATIVE Urine Ketones NEGATIVE Urine Occult Blood NEGATIVE Urine Nitrite NEGATIVE Urine Bilirubin NEGATIVE Urine Urobilinogen 0.2 (NORMAL) Ur Leukocyte Esterase NEGATIVE Urine RBC 0-5 Urine WBC 0-3 Ur Squamous Epith Cells NONE SEEN Urine Bacteria Rare Ur Microscopic Review INDICATED Urine Culture Comments NOT INDICATED Salicylates Urine Opiates Screen NEGATIVE Ur Oxycodone Screen NEGATIVE Urine Methadone Screen NEGATIVE Ur Propoxyphene Screen NEGATIVE Acetaminophen Ur Barbiturates Screen NEGATIVE Ur Tricyclics Screen NEGATIVE Ur Phencyclidine Scrn NEGATIVE Ur Amphetamine Screen POSITIVE H U Methamphetamines Scrn POSITIVE H U Benzodiazepines Scrn NEGATIVE Urine Cocaine Screen NEGATIVE U Cannabinoids Screen NEGATIVE Ethyl Alcohol SARS-CoV-2 (PCR) Procedures - Intubation - Major Provider: Emergency physician Medications: Propofol (150 mg IVP), Succinylcholine (200 mg IVP) Blade: Glidescope Tube: Size-enter number (7.5 cuffed) Confirmation: Direct visualization, Bilateral breath sounds, No abdominal breath sound, End tidal CO2, Pulse ox, Chest xray Complications: No compications - Central Line - Major Central Line Preparation: Unable to obtain consent, Time out completed, U ltrasound used, Sterile prep and drape Central line location: Right IJ Central line type: Triple lumen Central line aftercare: Chlorhexidine disc placed, Placement confirmed, Bundle checklist complete, Pt tolerated well, Other (Initial attempt the wire became bent during the dilatation process and I had to get a new kit and reaccessed but the second attempt went well.) PD Medical Decision Making - ED course ED course: 47-year-old gentleman presents after drug overdose with Narcan reversal. Now he is extremely agitated, fighting staff, he is screaming, unable to be verbally de-escalated and not making any sense. He will need restraint for patient and staff safety. Placed in both violent and chemical restraint on arrival. The situation was very critical and he had lost his prehospital IV. I personally placed an IO in the right tibia after ChloraPrep so that he could be given his medications. Even with the chemical restraint consisting of 400 mg of ketamine, 5 mg of IV Haldol, and 2 mg of IV Ativan he was still quite agitated and the decision to intubate was made. He was intubated and then a central line was placed. After that he was switched over to nonviolent restraints. There is no bed in the ICU here. The health health unit supervisor called around and [facility] are no [facility] with ICU beds available so he will be boarding in the emergency department. - Critical Care Time(min): 120 Time Includes: Direct patient care, Review records, Reassess patient, Document care, Coordinate care, Medical consult Data interpretation: Labs, Pulse ox, CXR Procedures included in critical care time: Peripheral IV Procedures excluded from critical care time: Central IV, Intraosseous, Intubation, EKG Departure - Departure Disposition: 66 [facility] DC/Xfer Clinical Impression: Delirium Drug overdose Qualifiers: Encounter type: initial encounter Injury intent: undetermined intent Qualified Code(s): T50.904A - Poisoning by unspecified drugs, medicaments and biological substances, undetermined, initial encounter Respiratory failure Qualifiers: Chronicity: acute Respiratory failure complication: unspecified whether with hypoxia or hypercapnia Qualified Code(s): J96.00 - Acute respiratory failure, unspecified whether with hypoxia or hypercapnia Condition: Critical
--- NOTE | 2023-02-13 19:16 | ED Physician Documentation ---
Restraint [id number] - Immediate Situation Face to Face Evaluation Date: 02/13/23 Face to Face Evaluation Time: 19:14 Restraint Classification: Violent, chemical w/ physical hold Restraint Type: Locked extremity, Physical hold, Chemical - Patient's Reaction & Behaviors Safety: Non-compliant Verbal: Screaming/Yelling, Swearing Harm: Potential harm to self Physical: Aggressive behavior, Fighting restraints, Spitting Other: Disruption of therapy - Behavioral Condition Attitude: Indifferent Behavior: Belligerent, Agitated Orientation: Disoriented to all Mood: Labile, Angry - Evaluation System status changes from initial ED note: No changes: He is fighting, spitting, screaming and unintelligible. Less restrictive alternatives have failed. Pertinent History/Illicit Drugs/Medications/Results: overdose with narcan reversal - Plan Need to Continue or Terminate Violent or Chemical Restraint: Hopefully once his drugs have worn off and he is more calm we will be able to remove the Restraints as soon as possible. Violent restraints changed over to nonviolent at approximately 9 PM as he is now intubated.
[2023-02-13 19:29] LABS: BASOPHILS # (AUTO) 0.1 10^3/uL (0.0-0.1); BASOPHILS % (AUTO) 0.8 %; EOSINOPHILS # (AUTO) 0.2 10^3/uL (0.0-0.7); HCT - HEMATOCRIT 44.7 % (42.0-52.0); HGB - HEMOGLOBIN 14.3 g/dL (14.0-18.0); LYMPHOCYTES # (AUTO) 2.4 10^3/uL (1.5-3.5); LYMPHOCYTES % (AUTO) 30.3 %; MEAN CORPUSCULAR HEMOGLOBIN 29.6 pg (27.0-31.0); MEAN CORPUSCULAR VOLUME 92.5 fL (80.0-94.0); MEAN PLATELET VOLUME 9.3 fL (7.4-11.4); MONOCYTES # (AUTO) 0.6 10^3/uL (0.0-1.0); NEUTROPHILS # (AUTO) 4.6 10^3/uL (1.5-6.6); NEUTROPHILS % (AUTO) 57.6 %; PLT - PLATELET COUNT 372 10^3/uL (130-450); RED BLOOD COUNT 4.83 10^6/uL (4.70-6.10); RED CELL DISTRIBUTION WIDTH 14.7 % (12.0-15.0)
--- OUTSIDE RECORDS SUMMARY | 2023-02-13 19:35 | EXTERNAL MEDICAL SUMMARY RPT | Continuity of Care Document ---
Author Name Unknown Address [address] [place] [address] Phone Organization [facility] Address [address] [place] [address] Phone Care Team Providers Care Tube Test Technician Name Role Phone Unavailable Unavailable Unavailable Samantha Cohn Pa-C Unavailable Unavailable Genoveva Rn, Bsn, Maddi Unavailable Unavai jyoti Tomas Rn, Bsn, Maddi Unavailable Unavai lable Medications date description facility 2023-01-06 00:00 doxycycline monohydrate [facility] [place] 2023-01-06 00:00 doxycycline monohydrate [facility] [place] 2023-01-06 00:00 doxycycline monohydrate [facility] [place] 2023-01-06 00:00 ibuprofen [facility] [place] 2023-01-06 00:00 ibuprofen [facility] [place] 2023-01-06 00:00 ibuprofen [facility] [place] 2023-01-06 00:00 doxycycline monohydrate [facility] [place] 2023-01-06 00:00 doxycycline monohydrate [facility] [place] 2023-01-06 00:00 doxycycline monohydrate [facility] [place] 2023-01-06 00:00 CEFTRIAXONE SODIUM [facility] 2023-01-06 00:00 CEFTRIAXONE SODIUM [facility] 2023-01-06 00:00 CEFTRIAXONE SODIUM [facility] [place] 2023-01-06 00:00 sulfamethoxazole-trimethoprim [facility] 2023-01-06 00:00 sulfamethoxazole-trimethoprim [facility] [place] 2023-01-06 00:00 sulfamethoxazole-trimethoprim [facility] [place] 2023-01-06 00:00 ibuprofen [facility] [place] 2023-01-06 00:00 ibuprofen [facility] [place] 2023-01-06 00:00 ibuprofen [facility] [place] 2023-01-06 00:00 sulfamethoxazole-trimethoprim [facility] [place] 2023-01-06 00:00 sulfamethoxazole-trimethoprim [facility] [place] 2023-01-06 00:00 sulfamethoxazole-trimethoprim [facility] [place] 2023-01-06 00:00 doxycycline monohydrate [facility] [place] 2023-01-06 00:00 doxycycline monohydrate [facility] [place] 2023-01-06 00:00 doxycycline monohydrate [facility] [place] 2023-01-06 00:00 IBUPROFEN [facility] [place] 2023-01-06 00:00 IBUPROFEN [facility] [place] 2023-01-06 00:00 IBUPROFEN [facility] [place] 2023-01-06 00:00 sulfamethoxazole-trimethoprim [facility] [place] 2023-01-06 00:00 sulfamethoxazole-trimethoprim [facility] [place] 2023-01-06 00:00 sulfamethoxazole-trimethoprim [facility] [place] 2023-01-06 00:00 doxycycline monohydrate [facility] [place] 2023-01-06 00:00 doxycycline monohydrate [facility] [place] 2023-01-06 00:00 doxycycline monohydrate [facility] [place] 2023-01-06 00:00 sulfamethoxazole-trimethoprim [facility] [place] 2023-01-06 00:00 sulfamethoxazole-trimethoprim [facility] [place] 2023-01-06 00:00 sulfamethoxazole-trimethoprim [facility] Problems date description facility 2023-01-06 00:00 Abscess of left axilla [facility] Procedures date description facility 2023-01-06 00:00 Visit Code Hold [facility] 2023-01-06 00:00 Visit Code Hold [facility] 2023-01-06 00:00 Visit Code Hold [facility] Social History date description facility 2023-01-06 00:00 Never smoker [facility] 2023-01-06 00:00 Never smoker [facility] 2023-01-06 00:00 Never smoker [facility] Vital Signs date measurement value units 2023-01-06 00:00 BMI 28.13 kg/m2 2023-01-06 00:00 BP_diastolic 84 mmHg 2023-01-06 00:00 BP_systolic 155 mmHg 2023-01-06 00:00 heart_rate 115 /min 2023-01-06 00:00 height_metric 187.96 cm 2023-01-06 00:00 height_standard 74 in 2023-01-06 00:00 respiration_rate 17 /min 2023-01-06 00:00 temperature_metric 37.67 C 2023-01-06 00:00 temperature_standard 99.8 F 2023-01-06 00:00 weight_metric 99.02 kg 2023-01-06 00:00 weight_standard 218.3 lb
[2023-02-13 19:45] LABS: MUDS CUTOFF CONCENTRATIONS CUTOFF CONC BELOW:
[2023-02-13] MEDS ORDERED: SODIUM CHLORIDE 0.9% 1,000 ML IV STA ×2 (19:45→21:38)
[2023-02-13 19:48] LABS: BILIRUBIN,URINE NEGATIVE (NEGATIVE); GLUCOSE, URINE (UA) NEGATIVE (NEGATIVE); KETONES,URINE (UA) NEGATIVE (NEGATIVE); LEUKOCYTE ESTERASE, URINE NEGATIVE (NEGATIVE); NITRITE,URINE NEGATIVE (NEGATIVE); OCCULT BLOOD,URINE NEGATIVE (NEGATIVE); PH,URINE 6.5 PH (5.0-7.5); PROTEIN,URINE 100 mg/dL (NEGATIVE); UROBILINOGEN,URINE 0.2 (NORMAL) E.U./dL (NORMAL)
[2023-02-13 19:51] LABS: CLARITY,URINE CLEAR (CLEAR)
[2023-02-13 19:52] LABS: ALBUMIN 4.5 g/dL (3.2-5.5); ALBUMIN/GLOBULIN RATIO 1.3 (1.0-2.2); ALKALINE PHOSPHATASE 113 IU/L (42-121); ALT ALANINE AMINOTRANSFERASE 162 IU/L (10-60); AST ASPARTATE AMINOTRANSFERASE 194 IU/L (10-42); BILIRUBIN,TOTAL 0.3 mg/dL (0.2-1.0); BUN - BLOOD UREA NITROGEN 19 mg/dL (6-20); CALCIUM 9.3 mg/dL (8.5-10.3); CARBON DIOXIDE - CO2 26 mmol/L (21-32); CHLORIDE 105 mmol/L (101-111); CK- CREATINE KINASE 402 IU/L (22-269); GFR - MDRD 80 (>89); GLUCOSE 126 mg/dL (70-100); LIPASE 36 U/L (22-51); MAGNESIUM 2.5 mg/dL (1.7-2.8); POTASSIUM 3.7 mmol/L (3.5-5.0); SODIUM 142 mmol/L (135-145)
[2023-02-13 20:00] LABS: AMPHETAMINE SCREEN,URINE POSITIVE (NEGATIVE); BACTERIA,URINE Rare /HPF (None Seen); BARBITURATE SCREEN,UR NEGATIVE (NEGATIVE); BENZODIAZEPINES SCREEN, URINE NEGATIVE (NEGATIVE); COCAINE SCREEN URINE NEGATIVE (NEGATIVE); METHADONE SCREEN, URINE NEGATIVE (NEGATIVE); METHAMPHETAMINES SCREEN, URINE POSITIVE (NEGATIVE); OPIATE SCREEN, URINE NEGATIVE (NEGATIVE); OXYCODONE SCREEN, URINE NEGATIVE (NEGATIVE); PROPOXYPHENE SCREEN, URINE NEGATIVE (NEGATIVE); RBC,URINE 0-5 /HPF (0-5); SQUAMOUS EPITHELIAL CELL,UR NONE SEEN (<= Few); THC CANNABINOID SCREEN, URINE NEGATIVE (NEGATIVE); TRICYCLIC ANTIDEPRESSANT,URINE NEGATIVE (NEGATIVE); WBC,URINE 0-3 /HPF (0-3)
[2023-02-13 20:04] LABS: ETOH - ETHANOL 126.1 mg/dL
[2023-02-13] MEDS ORDERED: PROPOFOL 200 MG/20 ML VIAL IVP STA (20:16)
[2023-02-13] MEDS ORDERED: SUCCINYLCHOLINE 200 MG/10 ML VIAL IVP STA (20:16)
[2023-02-13 20:25] LABS: ACETAMINOPHEN 0.1 ug/mL
[2023-02-13] MEDS: PROPOFOL 1000 MG/100 ML 1,000 MG/100 ML BOTTLE IV STA (20:32)
[2023-02-13 20:38] LABS: SALICYLATE < 1.5 mg/dL
[2023-02-13] MEDS ORDERED: VECURONIUM 10 MG VIAL IVP STA (20:41)
[2023-02-13 20:47] LABS: THYROID STIMULATING HORMONE 4.47 uIU/mL (0.34-5.60)
[2023-02-13] MEDS ORDERED: D5.45NS W/20 MEQ KCL 1,000 ML IV STA (20:59)
[2023-02-13 22:03] LABS: ABG BASE EXCESS -2.7 mmol/L (-2.0-3.0); ABG HCO3 22.8 mmol/L (22.0-26.0); ABG OXYGEN SATURATION 99 % (94-98); ABG PCO2 42 mmHg (34-45); ABG PH 7.35 (7.35-7.45); ABG TCO2 24.1 MMOL/L (21.0-29.0)
[2023-02-13 22:04] LABS: ABG PO2 191 mmHg (80-100); ALLEN TEST POSITIVE
[2023-02-13 22:05] LABS: ABG MODE OF VENTILATION SIMV; ABG RESPIRATORY RATE 16 b/min
--- NOTE | 2023-02-13 22:40 | XRAY Report ---
PROCEDURE: Chest for Line Placement INDICATIONS: LINE PLACEMENT TECHNIQUE: One view of the chest was acquired. COMPARISON: 02/24/2019. FINDINGS: Surgical changes and devices: There is an endotracheal tube with the tip approximately 3.5 cm from t he giovany. A right internal jugular catheter is present with the tip in the region of the cavoatrial junction. Lungs and pleura: No evidence of pneumothorax. There are low lung volumes with associated vascular c rowding. Linear opacities medially in the lung bases likely represent atelectasis. No pleural effusio ns. Mediastinum: There is slight widening of the mediastinal contours likely due to low lung volumes. He art size is normal. Bones and chest wall: No suspicious bony lesions. Overlying soft tissues appear unremarkable. IMPRESSION: 1. No evidence of pneumothorax. 2. Low lung volumes with associated vascular crowding. Reviewed by: Matthew Nieto MD on 02/13/2023 10:38 PM PDT Approved by: Matthew Nieto MD on 02/13/2023 10:38 PM PDT Station ID: [id number]
[2023-02-13] MEDS: MIDAZOLAM DRIP 50 MG/50 ML 50 MG/50 ML BAG IV SCH (23:32)
[2023-02-14] MEDS: PROPOFOL 1000 MG/100 ML 1,000 MG/100 ML BOTTLE IV SCH ×2 (00:59→05:27)
[2023-02-14] MEDS: PROPOFOL 1000 MG/100 ML 1,000 MG/100 ML BOTTLE IV STA (00:59)
[2023-02-14 04:56] LABS: BASOPHILS % (AUTO) 0.4 %; EOSINOPHILS # (AUTO) 0.1 10^3/uL (0.0-0.7); EOSINOPHILS % (AUTO) 1.8 %; HCT - HEMATOCRIT 35.9 % (42.0-52.0); HGB - HEMOGLOBIN 11.7 g/dL (14.0-18.0); LYMPHOCYTES # (AUTO) 1.8 10^3/uL (1.5-3.5); LYMPHOCYTES % (AUTO) 23.6 %; MEAN CORPUSCULAR HEMOGLOBIN 29.9 pg (27.0-31.0); MEAN CORPUSCULAR HGB CONC 32.6 g/dL (32.0-36.0); MEAN CORPUSCULAR VOLUME 91.8 fL (80.0-94.0); MEAN PLATELET VOLUME 9.5 fL (7.4-11.4); MONOCYTES # (AUTO) 0.5 10^3/uL (0.0-1.0); MONOCYTES % (AUTO) 7.3 %; NEUTROPHILS # (AUTO) 4.9 10^3/uL (1.5-6.6); NEUTROPHILS % (AUTO) 66.8 %; PLT - PLATELET COUNT 276 10^3/uL (130-450); RED BLOOD COUNT 3.91 10^6/uL (4.70-6.10); RED CELL DISTRIBUTION WIDTH 14.9 % (12.0-15.0); WHITE BLOOD COUNT 7.4 x10^3/uL (4.8-10.8)
[2023-02-14 05:11] LABS: CALCIUM 8.2 mg/dL (8.5-10.3); CREATININE 0.8 mg/dL (0.6-1.3); POTASSIUM 3.4 mmol/L (3.5-4.5)
[2023-02-14] MEDS ORDERED: SODIUM CHLORIDE 0.9% 1,000 ML IV STA (06:50)
[2023-02-14] MEDS: POTASSIUM CHLOR 10 MEQ/100 ML 10 MEQ/100 ML BAG IV SCH ×2 (07:44→08:46)
--- NOTE | 2023-02-14 08:30 | ED Physician Documentation ---
ED Addendum - Addendum Addendum: Patient signed out to me by overnight physician. Patient has been boarding in the emergency department. He is intubated. He presented with a drug overdose and was intubated for airway protection. This morning the plan has been to lighten his sedation and to reassess his mental status with hopes of extubating. 02/14/23 08:37 Patient opening his eyes, following some simple commands such as giving a thumbs up or squeezing hands,Nods his head to indicate that he understands, is breathing on his own but at times has shallow respirations and becomes drowsy/apneic. Propofol has been turned off. Patient has been off of Versed. 02/14/23 10:59 Patient still remains drowsy at times and not able to maintain his own respirations without ventilatory support. Therefore discussed the case with Dr. Elliott as there is an open ICU bed and she will place admission orders. 02/14/23 11:42 Patient has become more awake and was breathing on his own without ventilator support for at least 20 to 25 minutes. He is sitting upright and easily following commands and opening his eyes therefore decision made was to extubate. Patient tolerated extubation well. We will continue to monitor. 02/14/23 11:[address] Elliott regarding the patient's current status. He is extubated and maintaining saturations. However he still remains quite drowsy. He opens his eyes and answers 1 or 2 questions before drifting off to sleep. Therefore she will admit the patient for observation to [facility]. Departure - Departure Disposition: ED Place in Observation Clinical Impression: Delirium Drug overdose Qualifiers: Encounter type: initial encounter Injury intent: undetermined intent Qualified Code(s): T50.904A - Poisoning by unspecified drugs, medicaments and biological substances, undetermined, initial encounter Respiratory failure Qualifiers: Chronicity: acute Respiratory failure complication: unspecified whether with hypoxia or hypercapnia Qualified Code(s): J96.00 - Acute respiratory failure, unspecified whether with hypoxia or hypercapnia Condition: Critical Discharge Date/Time: 02/14/23 14:10
[2023-02-14] MEDS ORDERED: ENOXAPARIN 40 MG/0.4 ML SYRINGE SUBQ SCH (09:00)
[2023-02-14] MEDS ORDERED: PANTOPRAZOLE 40 MG VIAL IVP SCH (09:00)
[2023-02-14] MEDS ORDERED: SODIUM CHLORIDE FLUSH 0.9% 10 ML SYRINGE IVP PRN (11:39)
[2023-02-14] MEDS ORDERED: ONDANSETRON 4 MG/2 ML VIAL IVP PRN (11:39)
[2023-02-14] MEDS: DEXTROSE 5%-0.9% NACL 1,000 ML IV SCH (13:00)
--- NOTE | 2023-02-14 14:30 | HISTORY & PHYSICAL EXAMINATION ---
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 Was brpought inn by ambulance, was administered Narcan 3 times and presented to ER last night very agitated and brought in by EMS in restraints. Patient unable to give any history due to severe agitation. He iwas screaming, unable to be verbally de-escalated and not making any sense. He was placed in both violent and chemical restraint on arrival. The situation was very critical and he had lost his prehospital IV. An IO was placed in the right tibia so that he could be given his medications. Even with the chemical restraint, consisting of 400 mg of ketamine, 5 mg of IV Haldol, and 2 mg of IV Ativan, he was still quite agitated and the decision to intubate was made. He was intubated and then a central line was placed. After that he was switched over to nonviolent restraints. There were no bed in our ICU here or at local hospitals with ICU beds, so he boarded in our emergency department overnight, was on iv sedative drips. This morning his Versed drip and Propofol drips were stopped, he was slowly able to follow directions while on the vent, and after several hours was extubated this morning in the ER. He is still lethargic. The ED provider spoke to be about him. He will be brought into Observation status, to monitor his airway and his still obtunded mental status, until he is more alert and stable for discharge. Patient was recently hospitalized here 1 month ago for treating a left axillary abscess. We do not know what resulted from that, after he discharged from that hospital stay. History - Past Medical History Cardiovascular: reports: None Respiratory: reports: None Neuro: reports: None Endocrine/Autoimmune: reports: None GI: reports: None : reports: None HEENT: reports: None Psych: reports: Other Musculoskeletal: reports: Chronic back pain Derm: reports: None MRSA Hx?: Yes - Family & Social History Family History Comment/Other: Mom is in her 70s, and completely healthy. Dad is about 76, and also healthy. He has no siblings. He has no children that he is aware of Living arrangement: At home Living Situation: With family Social History Notes: He lives in a [place] on his parents [place]. [place] [facility]. Recreational substance abuse has included fent anyl, methamphetamine, and cannabis. He drinks 3, 16 ounce, cans of malt liquor a day. No history of alcohol withdrawal. Never . Sporadically employed. - POLST Patient has POLST: No Meds/Allgy - Home Medications Home Medications: Ambulatory Orders Medication Instructions Recorded Confirmed Linezolid [Zyvox] 600 mg PO BID #8 tablet 01/10/23 Cholecalciferol [Vitamin D3] 50 mcg PO DAILY #30 tab 01/13/23 Linezolid [Zyvox] 600 mg PO BID tab 01/13/23 Thiamine [Vitamin B-1] 100 mg PO DAILY #30 tab 01/13/23 cloNIDine [Catapres] 0.1 mg PO BID #60 tab 01/13/23 oxyCODONE [Roxicodone] 5 mg PO Q4-6H PRN #20 tablet 01/13/23 - Allergies Allergies/Adverse Reactions: Allergies Allergy/AdvReac Type Severity Reaction Status Date / Time No Known Drug Allergies Allergy Verified 01/07/23 12:56 Review of Systems - All Other Systems All Other Systems: reports: Other (No details are available as the patient is still lethargic after being extubated.) Exam - Vital Signs Vital Signs: Vital Signs x48h Temp Pulse Pulse Resp BP BP Pulse Ox 02/14/23 14:13 02/14/23 14:04 36.2 C L 82 16 153/89 H 96 02/14/23 13:47 74 20 141/108 H 100 02/14/23 13:17 70 20 146/104 H 100 02/14/23 12:30 69 12 161/108 H 100 02/14/23 12:08 70 12 165/110 H 100 02/14/23 11:50 36 C L 69 13 152/113 H 100 02/14/23 11:36 81 12 159/114 H 100 02/14/23 11:05 73 02/14/23 10:30 36 C L 80 12 151/104 H 100 02/14/23 10:00 76 12 149/105 H 100 02/14/23 09:51 77 12 154/104 H 99 02/14/23 09:30 36.1 C L 78 12 150/104 H 100 02/14/23 09:09 78 02/14/23 09:05 76 10 L 154/97 H 100 02/14/23 08:27 36 C L 79 14 134/96 H 100 02/14/23 08:04 77 16 138/102 H 100 02/14/23 08:00 78 02/14/23 07:30 36.2 C L 75 15 140/95 H 100 02/14/23 07:19 73 02/14/23 07:00 76 16 136/99 H 100 02/14/23 06:30 75 16 137/98 H 100 O2 Flow Rate 02/14/23 14:13 2 02/14/23 14:04 02/14/23 13:47 2 02/14/23 13:17 2 02/14/23 12:30 2 02/14/23 12:08 2 02/14/23 11:50 2 02/14/23 11:36 02/14/23 11:05 02/14/23 10:30 02/14/23 10:00 02/14/23 09:51 02/14/23 09:30 02/14/23 09:09 02/14/23 09:05 02/14/23 08:27 02/14/23 08:04 02/14/23 08:00 02/14/23 07:30 02/14/23 07:19 02/14/23 07:00 02/14/23 06:30 - Physical Exam General Appearance: positive: No acute distress, Lethargic Eyes Bilateral: positive: No lid inflammation ENT: positive: No signs of dehydration, Other (Disheveled appearing) Neck: positive: Nml inspection Respiratory: positive: No respiratory distress Cardiovascular: positive: Regular rate & rhythm Abdomen: positive: No distention Skin: positive: Warm, Dry Neurologic/Psychiatric: positive: Other (Obtunded. He awakens to his name and to touch. He says 1 or 2 word answers, falls back asleep.) Conclusion/Plan - Problem List (1) AMS (altered mental status) Conclusion/Plan: This is probably multifactorial: From combination of meth use, fentanyl use, IV Versed drip and IV propofol drip that were just stopped several hours ago. Plan: We will monitor airway, placed on telemetry, monitor vital signs Continue with IV fluids until he is able to take a diet (2) Substance abuse Conclusion/Plan: There is a history of meth and fentanyl abuse He was obtunded and probably had excessive fentanyl on board when he presented to the ER yesterday. Plan: Supportive care and when he is awake and stable, will ask for a social work consult - Lab Results Fish Bones: 02/14/23 04:52 02/14/23 04:52
[2023-02-14] MEDS: MIDAZOLAM DRIP 50 MG/50 ML 50 MG/50 ML BAG IV SCH (15:37)
[2023-02-14] MEDS: SODIUM CHLORIDE FLUSH 0.9% 10 ML SYRINGE IVP SCH (15:37)
[2023-02-14] MEDS: FAMOTIDINE 20 MG/2 ML VIAL IVP SCH (22:37)
[2023-02-15] MEDS: DEXTROSE 5%-0.9% NACL 1,000 ML IV SCH (02:25)
[2023-02-15] MEDS: ethyl alcohoL 62% SWAB AMPULE NAS SCH ×2 (02:25→08:59)
[2023-02-15] MEDS: SODIUM CHLORIDE FLUSH 0.9% 10 ML SYRINGE IVP SCH ×2 (02:27→09:00)
[2023-02-15 05:37] LABS: BASOPHILS % (AUTO) 0.7 %; EOSINOPHILS # (AUTO) 0.3 10^3/uL (0.0-0.7); EOSINOPHILS % (AUTO) 5.1 %; HCT - HEMATOCRIT 40.5 % (42.0-52.0); HGB - HEMOGLOBIN 12.9 g/dL (14.0-18.0); LYMPHOCYTES # (AUTO) 1.3 10^3/uL (1.5-3.5); LYMPHOCYTES % (AUTO) 21.1 %; MEAN CORPUSCULAR HEMOGLOBIN 29.5 pg (27.0-31.0); MEAN CORPUSCULAR HGB CONC 31.9 g/dL (32.0-36.0); MEAN CORPUSCULAR VOLUME 92.7 fL (80.0-94.0); MEAN PLATELET VOLUME 9.9 fL (7.4-11.4); MONOCYTES # (AUTO) 0.5 10^3/uL (0.0-1.0); MONOCYTES % (AUTO) 7.7 %; NEUTROPHILS % (AUTO) 65.2 %; PLT - PLATELET COUNT 280 10^3/uL (130-450); RED BLOOD COUNT 4.37 10^6/uL (4.70-6.10); RED CELL DISTRIBUTION WIDTH 14.6 % (12.0-15.0); WHITE BLOOD COUNT 6.1 x10^3/uL (4.8-10.8)
[2023-02-15 05:49] LABS: CALCIUM 8.7 mg/dL (8.5-10.3); CREATININE 0.8 mg/dL (0.6-1.3); MAGNESIUM 1.9 mg/dL (1.7-2.3); PHOSPHORUS 2.5 mg/dL (2.5-5.0); POTASSIUM 3.9 mmol/L (3.5-4.5)
[2023-02-15] MEDS ORDERED: DEXTROSE 5%-0.9% NACL 1,000 ML IV SCH (08:30)
[2023-02-15] MEDS: FAMOTIDINE 20 MG/2 ML VIAL IVP SCH (08:59)
[2023-02-15] MEDS ORDERED: ENOXAPARIN 40 MG/0.4 ML SYRINGE SUBQ SCH (09:00)
[2023-02-15] MEDS ORDERED: NICOTINE 14 MG PATCH TOP SCH (10:18)
--- NOTE | 2023-02-15 10:43 | PHARMACY PROGRESS NOTE ---
- Best Possible Medication History Admit Date and Time: 02/14/23 1158 Processed by: Pharmacy Medication History completed: Yes Patient Interview: Completed Secondary Source(s): Pharmacy records As the person ultimately responsible for medication therapy, providers are able to order a medication from an existing home medication list in [facility] via the "Reconcile Routine" prior to Confirmation of that medication by administrative support manager. Such practice is discouraged except when the physician, in their clinical judgment, deems that a medical need exists for a medication without regard to previous use.
[2023-02-15] MEDS ORDERED: BUPRENORPHINE/NALOXONE 8-2 MG TAB SL SCH (11:30)
[2023-02-15] MEDS ORDERED: THIAMINE 100 MG TABLET PO SCH (12:00)
--- NOTE | 2023-02-15 12:05 | Discharge Plan ---
Discharge Plan Problem Reviewed?: Yes Disposition: Home, Self Care Condition: Stable Diet: Regular Shower Restrictions: No Driving Restrictions: No (Do not drive a vehicle if you are using alcohol or mind-altering drugs) Health Concerns: You were hospitalized when you were brought in semi-comatose, and needed Narcan given by the ambulance personnel to awaken. Then you were agitated and needed restraints and had to be put on a ventilator. Your tox screen showed that you had used meth. You told us that you had used fentanyl as well and have Narcan to use when needed. You were seen by the [facility] social science professor. A plan has been discussed with you to have outreach from substance abuse personnel. It is highly recommended that you stop using meth, fentanyl and stop smoking. You are being discharged home today. You may resume all your usual pre-hospital medications that you were prescribed. Plan of Treatment: As above. Care Goals: Improvement in symptoms and stabilization are the goals. Assessment: The patient understands and states that he agrees with the plan. No Smoking: If you smoke, Please STOP! Call for help.
--- NOTE | 2023-02-15 12:06 | DISCHARGE SUMMARY ---
Discharge Summary Admit Date: 02/14/23 Discharge Date: 02/15/23 Discharging Provider: Dr Nyla Elliott Primary Care Provider: None Condition at Discharge: Stable Discharge Disposition: 01 Home, Self Care - [facility] History of Present Illness: This is a 47-year-old man with history of methamphetamine and fentanyl abuse. Patient was recently hospitalized here 1 month ago for treating a left axillary abscess. We do not know what resulted from that, after he discharged from that hospital stay. He was smoking something, presumably fentanyl and became obtunded. A friend called an ambulance and he was administered Narcan 3 times by ambulance personnel and was BIBA to our ER last night. He was very agitated at presentation, was in restraints. Patient was unable to give any history due to severe agitation. He was screaming, unable to be verbally de-escalated and not making any sense. He was placed in both violent and chemical restraint on arrival. The situation was very critical and he had lost his prehospital IV. An IO was placed in the right tibia so that he could be given his medications. Even with chemical restraint, consisting of 400 mg of ketamine, 5 mg of IV Chacho dol, and 2 mg of IV Ativan, he was still quite agitated and the decision to intubate was made. He was intubated and then a central line was placed. After that he was switched over to nonviolent restraints. There were no bed in our ICU here or at local hospitals with ICU beds, so he boarded in our emergency department overnight, was kept on Versed and Propofol iv sedative drips. This morning in the ER, his Versed drip and Propofol drips were stopped, he was slowly able to follow directions while still on the vent, and after several hours was extubated in the ER. He is still lethargic. The ED provider spoke to be about him. He will be brought into Observation status, to monitor his airway and his still obtunded mental status, until he is more alert and medically stable for discharge. - HOSPITAL COURSE Hospital Course: (1) AMS (altered mental status) This was probably multifactorial: From combination of meth use, fentanyl use, then had IV Versed drip and IV propofol drip in the ER while intubated that had just been stopped. He was placed in observation to monitor his airway, vital signs and continue with IV fluids until he awoke to take a diet. (2) Substance abuse There is a history of meth and fentanyl abuse. He was initially obtunded then became agitated, needed to be intubated and sedated. After he was extubated, then another day he was hypersomnolent before eventually being able to speak to a DCR. The DCR cleared him for discharge home. The patient was planning on [facility] outpatient help. - ALLERGIES Allergies/Adverse Reactions: Allergies Allergy/AdvReac Type Severity Reaction Status Date / Time No Known Drug Allergies Allergy Verified 01/07/23 12:56 - MEDICATIONS Home Medications: Ambulatory Orders Medication Instructions Recorded Confirmed Thiamine [Vitamin B-1] 100 mg PO DAILY #30 tab 01/13/23 02/15/23 Cholecalciferol [Vitamin D3] 25 mcg PO DAILY 02/15/23 02/15/23 buprenorphine HCL [Buprenorphine 1 tab PO DAILY 02/15/23 02/15/23 HCl] - PHYSICAL EXAM AT DISCHARGE General Appearance: positive: No acute distress, Alert Eyes Bilateral: positive: Normal inspection, EOMI ENT: positive: No signs of dehydration Neck: positive: Nml inspection, No JVD Respiratory: positive: No respiratory distress Cardiovascular: positive: Regular rate & rhythm, No murmur Abdomen: positive: Non-tender, Nml bowel sounds, No distention Skin: positive: Warm, Dry Extremities: positive: Non-tender, No pedal edema Neurologic/Psychiatric: positive: Oriented x3, Motor nml - LABS Result Diagrams: 02/15/23 05:30 02/15/23 05:30 - TIME SPENT Time Spent in Discharge (Minutes): 30
[2023-02-15 12:29] VITALS: BP 152/97; O2SAT 100
== END 2023-02-15 13:39 | disposition home or self-care (01) ==
LOC: EDUNIT# → ED 19:03 → ICU 02-14 11:39 → INTOOBSV 02-14 11:39 → UNDOADMOB 02-14 11:39 → ICU 02-14 11:58 → MS2 02-14 13:03
PROVIDERS: ADMIT Internal Medicine; ATTEND Internal Medicine
DX: T50.904A Poisoning by unspecified drugs, medicaments and biological substances, undetermined, initial encounter (principal); J96.00 Acute respiratory failure, unspecified whether with hypoxia or hypercapnia; R41.82 Altered mental status, unspecified; R45.1 Restlessness and agitation; F11.10 Opioid abuse, uncomplicated; F15.10 Other stimulant abuse, uncomplicated; G89.29 Other chronic pain; M54.9 Dorsalgia, unspecified; R00.0 Tachycardia, unspecified; R53.83 Other fatigue; R94.31 Abnormal electrocardiogram [ECG] [EKG]; Z20.822 Contact with and (suspected) exposure to COVID-19; Z78.1 Physical restraint status; Z79.899 Other long term (current) drug therapy
CPT/HCPCS: 31500; 36415; 36556; 36600; 36680; 80048; 80053; 80306; 80307; 80320; 80329; 81001; 82550; 82803; 83690; 83735; 84100; 84443; 85025; 87635; 87640; 93005; 94002; 94003; 96361; 96365; 96366; 96372; 96375; 96376; 99291; 99292; A9270; G0378; J0330; J1650; J2060; 81003; 87086; 94770

== ENCOUNTER 2023-04-19 14:50 | Emergency (ER) | payer MEDICAID ==
[2023-04-19 15:25] VITALS: BP 144/92; O2SAT 98
--- OUTSIDE RECORDS SUMMARY | 2023-04-19 16:25 | EXTERNAL MEDICAL SUMMARY RPT | Continuity of Care Document ---
Author Name Unknown Address [address] [place] [address] Phone Organization [facility] Address [address] [place] [address] Phone Care Team Providers Care Business Planning Analyst Name Role Phone Unavailable Unavailable Unavailable Linda Parnell, Missy Unavailable Unavailable Nic Flor Pa-C Unavailable Unavailable Allergies and Intolerances date description facility reaction severity Medications date description facility 2023-04-15 00:00 buprenorphine hcl [facility] 2023-04-15 00:00 buprenorphine hcl [facility] 2023-04-16 00:00 buprenorphine hcl [facility] 2023-04-15 00:00 CEFTRIAXONE SODIUM [facility] 2023-04-15 00:00 buprenorphine hcl [facility] 2023-04-15 00:00 buprenorphine hcl [facility] 2023-04-16 00:00 buprenorphine hcl [facility] 2023-04-15 00:00 buprenorphine hcl [facility] 2023-04-15 00:00 buprenorphine hcl [facility] 2023-04-16 00:00 buprenorphine hcl [facility] 2023-04-15 00:00 buprenorphine hcl [facility] 2023-04-15 00:00 buprenorphine hcl [facility] 2023-04-16 00:00 buprenorphine hcl [facility] 2023-04-15 00:00 KETOROLAC TROMETHAMINE [facility] Problems date description facility 2023-04-15 00:00 Cellulitis of finger of left virk nd [facility] 2023-04-15 00:00 Cellulitis of finger of left virk nd [facility] 2023-04-15 00:00 H/O: infectious disease [facility] 2023-04-15 00:00 H/O: infectious disease [facility] 2023-04-15 00:00 Pulp abscess of finger [facility] 2023-04-15 00:00 Pulp abscess of finger [facility] 2023-04-15 00:00 Felon [facility] [place] 2023-04-15 00:00 Felon [facility] [place] 2023-04-15 00:00 Lymphangitis [facility] [place] 2023-04-15 00:00 Lymphangitis [facility] [place] 2023-04-15 00:00 Cellulitis of left finger [facility] 2023-04-15 00:00 Cellulitis of left finger [facility] [place] 2023-04-15 00:00 Cellulitis of unspecified finge r [facility] [place] 2023-04-15 00:00 Cellulitis of unspecified finge r [facility] 2023-04-15 00:00 Personal history of methicillin resistant Staphylococcus aureus infection [facility] 2023-04-15 00:00 Personal history of methicillin resistant Staphylococcus aureus infection [facility] 2023-04-15 00:00 Personal history of Methicillin resistant Staphylococcus aureus infection [facility] 2023-04-15 00:00 Personal history of Methicillin resistant Staphylococcus aureus infection [facility] Procedures date description facility 2023-04-15 00:00 Visit Code Hold [facility] 2023-04-15 00:00 Visit Code Hold [facility] [place] Social History date description facility 2023-04-15 00:00 Never smoker [facility] [place] 2023-04-15 00:00 Never smoker [facility] [place] Vital Signs date measurement value units 2023-04-15 00:00 BMI 27.06 kg/m2 2023-04-15 00:00 BP_diastolic 89 mmHg 2023-04-15 00:00 BP_systolic 144 mmHg 2023-04-15 00:00 heart_rate 86 /min 2023-04-15 00:00 height_metric 187.96 cm 2023-04-15 00:00 height_standard 74 in 2023-04-15 00:00 respiration_rate 16 /min 2023-04-15 00:00 temperature_metric 36.17 C 2023-04-15 00:00 temperature_standard 97.1 F 2023-04-15 00:00 weight_metric 95.25 kg 2023-04-15 00:00 weight_standard 210 lb
[2023-04-19] MEDS ORDERED: BUFFERED LIDOCAINE 10 ML SYRINGE SUBQ STA (16:44)
--- NOTE | 2023-04-19 16:57 | XRAY Report ---
PROCEDURE: Finger(s) LT INDICATIONS: fb under nail TECHNIQUE: AP hand, 2 views of the third finger(s) acquired. COMPARISON: None. FINDINGS: Bones: No fractures or dislocations. No suspicious bony lesions. Soft tissues: No radiopaque foreign bodies are seen. Dorsal soft tissue swelling seen involving the distal third finger. IMPRESSION: No radiopaque foreign bodies are seen. Dorsal soft tissue swelling can be seen involving the distal third finger. No acute bony abnormality is seen. Reviewed by: Eldon Franco MD on 04/19/2023 3:56 PM K[facility] Approved by: Eldon Franco MD on 04/19/2023 3:56 PM KUSH[facility] Station ID: [id number]
--- NOTE | 2023-04-19 17:07 | ED Physician Documentation ---
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 Since then he has had progressive swelling of the distal tip and now fluctuance at the cuticle edges. No fevers. Tetanus up-to-date in 2016. Review of Systems Constitutional: denies: Fever, Chills Skin: reports: Lesions PD PAST MEDICAL HISTORY - Past Medical History Cardiovascular: None Respiratory: None Neuro: None Endocrine/Autoimmune: None GI: None : None HEENT: None Psych: Other Musculoskeletal: Chronic back pain Derm: None - Past Surgical History Past Surgical History: No - Present Medications Home Medications: Ambulatory Orders Medication Instructions Recorded Confirmed Thiamine [Vitamin B-1] 100 mg PO DAILY #30 tab 01/13/23 02/15/23 Cholecalciferol [Vitamin D3] 25 mcg PO DAILY 02/15/23 02/15/23 buprenorphine HCL [Buprenorphine 1 tab PO DAILY 02/15/23 02/15/23 HCl] Sulfamethox/Trimeth 800/160 1 each PO BID #14 tablet 04/19/23 [Bactrim Ds 800/160] cephALEXin [Keflex] 500 mg PO Q6H #28 cap 04/19/23 - Allergies Allergies/Adverse Reactions: Allergies Allergy/AdvReac Type Severity Reaction Status Date / Time No Known Drug Allergies Allergy Verified 01/07/23 12:56 - Social History Does the pt smoke?: No Smoking Status: Former smoker Does the pt drink ETOH?: Yes Does the pt have substance abuse?: Yes - Immunizations Immunizations are current?: Yes Immunizations: TDAP >10years/unknown - POLST Patient has POLST: No PD ED PE NORMAL - Extremities Extremities: Other (Left middle finger with large fluctuant paronychia and abscess formation. Some redness and tenderness does extend to the fat pad. Moderate erythema of the distal finger. No lymphangitis. Neurovascular intact.) Results - Vitals Vitals: Vital Signs - 24 hr 04/19/23 15:15 Temperature 36 C L Heart Rate 96 Respiratory 20 Rate Blood Pressure 144/92 H O2 Saturation 98 Oxygen O2 Source Room air - Rads (name of study) left finger Relevant Findings:: Final report received (No radiopaque foreign body seen dorsal soft tissue swelling seen involving the distal third finger.) Procedures - Abscess I&D (location) left middle finger Preparation: Betadine Incision: Incised with scalpel, Purulent drainage, Irrigated, Culture obtained Other: Pt tolerated well, Antibiotic prescribed, Other (Cuticle edge appears from the distal tip of the finger. Irrigated thoroughly.) PD Medical Decision Making - ED course Complexity details: d/w patient ED course: Large paronychia of the distal left middle finger that was drained at the bedside. Culture obtained. This has been ongoing now for about 1 week. Clinically patient has normal vital signs for presentation. He will be started on Keflex and Bactrim. Antibiotics to be tailored pending culture results. The usual emergent return precautions and wound care discussions were discussed. Departure - Departure Disposition: 01 Home, Self Care Clinical Impression: Paronychia Condition: Stable Record reviewed to determine appropriate education?: Yes Instructions: ED Fingernail Infec Prescriptions: Sulfamethox/Trimeth 800/160 [Bactrim Ds 800/160] 1 each PO BID #14 tablet cephALEXin [Keflex] 500 mg PO Q6H #28 cap Comments: Mazin you had a infection of the cuticle edge of your left middle finger. This is called a paronychia. We did drain this at the bedside and obtained a culture. We will notify you if we need to make antibiotic changes. Prescription for 2 antibiotics has been sent to [facility] in [place]. You will take Bactrim twice daily for the next week and Keflex 4 times daily for the next week. In 24 hours you can remove the dressing gently wash with warm soap and water, apply antibiotic ointment and a bandage. Return to the ER if you are having any new or worsening symptoms or concerns of infection that failed to resolve despite this treatment.
[2023-04-19] MEDS ORDERED: SULFAMETH/TRIMETH DS 800/160 MG TABLET PO STA (17:08)
[2023-04-19] MEDS ORDERED: cephALEXin 250 MG CAPSULE PO STA (17:08)
--- NOTE | 2023-04-21 14:14 | ED Physician Documentation ---
ED Addendum - Addendum Addendum: 04/21/23 14:14 Wound culture was reviewed, MRSA resistant to pretty much everything including clindamycin and Bactrim which she was placed on. Only oral option would be linezolid. But looking at the chart he has a history of methamphetamine abuse and that might be problematic as well. I called the phone number, it did not work. Subsequently called his mother and spoke with her and she will try to get a hold of them have him give us a call. Theoretically, if it is a well drained paronychia I am not sure he needs further antibiotics, and otherwise if we were to prescribe linezolid it might cause some danger if he is actively using methamphetamines.
--- NOTE | 2023-04-22 18:07 | ED Physician Documentation ---
ED Addendum - Addendum Addendum: 04/22/23 18:07 Patient finally called back and I discussed with him the culture results. He says it is improving on its own but he would really like to be on appropriate antibiotic. He last used methamphetamine 2 days ago and feels like he can abstain for the length of the antibiotic treatment and a prescription for linezolid 600 mg p.o. twice daily #14 was sent to [facility] in [place] and he will pick it up and stop the other antibiotics.
== END 2023-04-19 17:55 | disposition home or self-care (01) ==
LOC: ED 14:50
DX: L03.012 Cellulitis of left finger (principal); A49.02 Methicillin resistant Staphylococcus aureus infection, unspecified site; Z87.891 Personal history of nicotine dependence
CPT/HCPCS: 26010; 73140; 87070; 87181; 87205; 99283; 99284; A9270